=== PATIENT | female | born 1945 | race Caucasian/White ===

== ENCOUNTER 2019-07-25 10:07 | Emergency (ER) | payer MEDICARE, SELFPAY ==
--- NOTE | ~2019-07-25 | XR_ITS ---
EXAMINATION: XR chest 2V DATE: 07/25/2019 10:44 INDICATION: Cough TECHNIQUE: PA and lateral views of the chest are obtained. COMPARISON: 11/22/2016 FINDINGS: The lungs are free of acute opacities. There is no pleural effusion or pneumothorax. The ca rdiomediastinal silhouette is normal. There is severe thoracic spondylosis. There are changes of righ t mastectomy and right axillary lymph node dissection. IMPRESSION: 1. No acute cardiopulmonary abnormality. Reviewed, dictated and finalized at location A. DRIER
[2019-07-25 10:15] VITALS: BP 99/53; PULSE 70; RESP 16; TEMP 36.3; O2SAT 99
--- NOTE | 2019-07-25 10:27 | ED.URI ---
HPI - URI/Sore Throat General Chief Complaint: Upper Respiratory Infection Stated Complaint: cough/mucus/nausea Time Seen by Provider: 07/25/19 10:28 Source: patient and RN notes reviewed Mode of arrival: ambulatory Limitations: no limitations History of Present Illness HPI Narrative: 74-year-old female presents with concern for 5-day history of cough, chest congestion. Also reports nausea and one episode of diarrhea. Reports decreased appetite. Reports she had a fever of 102 at the beginning of the illness. Reports she got a flu vaccine this year. MD elicited complaint: cough Related Data Home Medications Medication Instructions Recorded Confirmed spironolactone 25 mg tablet 25 mg PO DAILY 07/04/19 07/07/19 ascorbic acid (vitamin C) 500 mg mg PO 07/07/19 07/07/19 capsule atorvastatin 10 mg tablet 10 mg PO DAILY 07/07/19 07/07/19 calcium carbonate 600 mg calcium 600 mg PO DAILY 07/07/19 07/07/19 (1,500 mg) tablet cholecalciferol (vitamin D3) 2,000 2,000 unit PO DAILY 07/07/19 07/07/19 unit tablet cyanocobalamin (vitamin B-12) 5,000 mcg PO DAILY 07/07/19 07/07/19 5,000 mcg capsule omega-3 fatty acids 1,000 mg 1,000 mg PO DAILY 07/07/19 07/07/19 capsule vitamin E (dl, acetate) 400 unit 400 unit PO DAILY 07/07/19 07/07/19 capsule Allergies Allergy/AdvReac Type Severity Reaction Status Date / Time Sxcbslx-[id number]-Hqi Reductase Allergy Intermediate MUSCLE PAIN Verified 07/07/19 08:40 Inhibitor adhesive tape Allergy Mild SORES Verified 07/07/19 08:40 Sulfa (Sulfonamide Allergy Mild RASH, Verified 07/07/19 08:40 Antibiotics) ITCHING Review of Systems Review of Systems: Narrative: CONSTITUTIONAL: Reports malaise, fever. EYES: Denies visual changes, redness, or discharge. ENT: Reports rhinorrhea, congestion. Denies sinus pain, otalgia and sore throat. CARDIOVASCULAR: Denies chest pain, palpitations, or edema. RESPIRATORY: Reports cough, chest congestion. Reports occasional dyspnea. GASTROINTESTINAL: Denies abdominal pain, vomiting,. Reports nausea and 1 episode of diarrhea SKIN: Denies rash or itching. MUSCULOSKELETAL: Denies myalgia. NEUROLOGIC: Denies headache. All systems reviewed & are unremarkable except as noted in HPI and below PMFSH Surgical History Surgical History H/O colonoscopy History of modified radical mastectomy History of total hip replacement Comments At time of signature, agree with nursing past medical, surgical, social and family history. There is no relevant family history pertinent to the presenting complaint Exam Narrative: Exam Narrative: GENERAL: Well-appearing, well-nourished, and in no acute distress. HEAD: Normocephalic, atraumatic. EYES: PERRLA, conjunctivae clear, and EOMI. ENT: Nares clear, turbinates erythematous, clear discharge. Mucous membranes moist. TM pearly maciel with dull light reflex bilaterally; no tragal tenderness. Oropharynx not erythematous without lesions. Tonsils not enlarged and without exudate, no drooling, no hoarseness, no trismus. NECK: Supple. No lymphadenopathy CHEST: Scattered crackles in the right lower lobe, otherwise clear to auscultation, breath sounds equal. No wheezing, rales, or stridor. No respiratory distress, speaks in full sentences. HEART: Regularly irregular rhythm, normal rate. Normal peripheral pulses. SKIN: Warm, dry, no rash. NEURO: Alert and oriented x3. PSYCH: Normal mood and affect Course Course Emergency Course: Patient is aware of diagnosis, understands and agrees to treatment plan. Anticipatory guidance given. Patient agrees to follow-up as directed and is aware of reasons to seek care at the emergency department. Portions of this record may have been created with voice recognition software Vital Signs Vital signs: Vital Signs Temperature 97.3 F L 07/25/19 10:15 Pulse Rate 70 07/25/19 10:15 Respiratory Rate 16 07/25/19 10:15 Blood Pressure 99/53
--- NOTE | 2019-07-25 11:00 | PC.NURSE ---
Pt has multiple and varied complaints but poor historian. Says only eaten 7 crackers and a can of soup.
== END 2019-07-25 11:11 | disposition home or self-care (01) ==
PROVIDERS: Emergency Provider Nurse Practitioner; PCP Internal Medicine
DX: R05 Cough (principal); R11.0 Nausea; R09.89 Other specified symptoms and signs involving the circulatory and respiratory systems; Z96.649 Presence of unspecified artificial hip joint; I10 Essential (primary) hypertension; M19.90 Unspecified osteoarthritis, unspecified site; Z95.810 Presence of automatic (implantable) cardiac defibrillator
CPT/HCPCS: 71046; 99213; G0463

== ENCOUNTER → 2019-07-30 09:48 | Outpatient (CLI) | payer MEDICARE, SELFPAY ==
--- NOTE | ~2019-07-30 | MR_ITS ---
EXAMINATION: MR shoulder RT wo con DATE: 07/30/2019 10:25 INDICATION: Right shoulder pain TECHNIQUE: Magnetic resonance imaging (MRI) of the right shoulder was performed without intravenous c ontrast. Sequences included axial PD-weighted FS FSE, coronal oblique PD-weighted FS FSE, coronal obl ique T2-weighted FS FSE, sagittal PD-weighted FS FSE, and sagittal T1-weighted SE. COMPARISON: Right shoulder radiographs dated 07/24/2019 FINDINGS: Coracoacromial arch: The acromion undersurface is curved in morphology (type II). The coracoacromial ligament is normal. M ild acromioclavicular osteoarthritis. 8 x 6 x 6 mm ganglion cyst extending cephalad from the acromioc lavicular joint space. There is a small ossicle along the dorsal capsule of the acromioclavicular linsey nt space which could represent a degenerative loose body,, heterotopic ossicle or tiny chronic nonuni apoorva avulsion fracture fragment related to chronic acromioclavicular joint separation. The joint space however remains within normal limits and the coracoclavicular ligaments appear normal. Rotator cuff: Moderate supraspinatus tendinopathy and mild tendinopathy of the anterior infraspinatus tendon. There is a partial-thickness bursal sided tear along the superior facet footplate of the superior facet fo otplate of the mid supraspinatus tendon which measures 6 mm AP by 13 mm medial collateral and involve s at least two thirds of the tendon thickness. The articular surface of the tendon appears to remain intact. Mild supraspinatus tendinopathy with mild intrasubstance longitudinal split tearing at the di stal aspect of the tendon without a measurable tear defect, appreciable lax torn tendon fibers or dis cernible tear margin. The teres minor tendon is normal. Normal rotator cuff muscle bulk and signal. Biceps tendon, glenoid labrum and glenohumeral cartilage: Focal thickening at the junction of the intra and extra articular portions of the long head biceps te ndon consistent with mild tendinopathy without a discrete tear. Posterior labral tear extending from the 11:00 position superiorly to the 7:30 position inferiorly. Partial-thickness cartilage loss and f issuring without degenerative subarticular changes along the posterior superior rim of the glenoid an d along the apex, posterior superior and superolateral aspects of the humeral head. Fluid: Small amount of fluid in the long head biceps tendon sheath which is disproportionate to the physiolo gic amount of fluid in the glenohumeral joint with mild bicipital tenosynovitis. No loose osteochondr al bodies. Small amount of fluid in the subacromial/subdeltoid bursa consistent with mild bursitis. Bones: Bone alignment is normal. There is degenerative cystic change along the lesser tuberosity and at the superior facet of the greater tuberosity likely related to rotator cuff disease. No acute fracture or pathologic marrow replacing process. IMPRESSION: 1. Small deep bursal sided tear at the distal supraspinatus tendon. 2. Moderate tendinopathy and mild longitudinal split tearing at the distal subscapularis tendon. 3. Mild glenohumeral osteoarthritis with tear at the posterior glenoid labrum. 4. Mild acromioclavicular osteoarthritis 5. Mild bicipital tenosynovitis with mild bicipital tendinopathy without discrete tear. Reviewed, dictated and finalized at location A. LATORY PROCESS MANAGER IMPRESSION: 1. Small deep bursal sided tear at the distal supraspinatus tendon. 2. Moderate tendinopathy and mild longitudinal split tearing at the distal subs capularis tendon. 3. Mild glenohumeral osteoarthritis with tear at the posterior glenoid labrum. 4. Mild acromioclavicular osteoarthritis 5. Mild bicipital tenosynovitis with mild bicipital tendinopathy without discre te tear.
== END ==
PROVIDERS: PCP Internal Medicine; Visit Provider Orthopaedic Surgery
DX: M19.011 Primary osteoarthritis, right shoulder (principal); M75.21 Bicipital tendinitis, right shoulder
CPT/HCPCS: 73221

== ENCOUNTER 2019-12-01 11:01 | Outpatient (CLI) | payer MEDICARE, SELFPAY ==
[2019-12-01 11:49] LABS: Blood Urea Nitrogen 22 mg/dL (7-17); Carbon Dioxide 28 mmol/L (22-30); Chloride 97 mmol/L (98-107); Estimated Glomerular Filt Rate 54; Glucose 79 mg/dL (65-105); Potassium 4.1 mmol/L (3.4-5.0); Sodium 134 mmol/L (137-145)
== END 2019-12-01 11:02 | disposition home or self-care (01) ==
LOC: ANHSURGERY 11:07
PROVIDERS: Anesthesiology; PCP Internal Medicine; Visit Provider Orthopaedic Surgery
DX: Z01.818 Encounter for other preprocedural examination (principal); Z79.899 Other long term (current) drug therapy
CPT/HCPCS: 36415; 80048

== ENCOUNTER 2019-12-02 00:05 | Outpatient (CLI) | payer MEDICARE, SELFPAY ==
[2019-12-02 18:58] LABS: SARS-CoV-2 RNA PCR Negative
== END 2019-12-02 00:06 | disposition home or self-care (01) ==
LOC: ANHCOVIDDT 00:05
PROVIDERS: PCP Internal Medicine; Visit Provider Orthopaedic Surgery
DX: Z01.812 Encounter for preprocedural laboratory examination (principal); Z20.828 Contact with and (suspected) exposure to other viral communicable diseases
CPT/HCPCS: 87635; C9803; U0003

== ENCOUNTER 2019-12-03 00:22 | Day surgery (SDC) | payer MEDICARE, SELFPAY ==
[2019-11-28 14:09] VITALS: BMI 36.1
--- NOTE | 2019-12-01 15:51 | PC.NURSE ---
PT NOTIFIED OF DATE AND TIME CHANGE
[2019-12-03] VITALS (8 sets, daily range): BP systolic 84–131; BP diastolic 52–75; PULSE 75–88; RESP 11–20; TEMP 36.3–36.4; O2SAT 92–99
--- NOTE | 2019-12-03 07:33 | WPDHPUPDATE1 ---
History and Physical Update Update Date/Time: 12/03/19 07:33 History and Physical has been reviewed, including an updated exam of the patient. There are NO changes in the patient's condition. Risks, benefits, and alternatives have been discussed and questions answered. Patient agrees to proceed with procedure.
--- NOTE | 2019-12-03 08:07 | PHAR ---
SULFA ALLERGY (RASH,ITCHING) - CELEBREX ORDERED. CALLED PRE-OP (CORNELIUS) AND ASKED THEN TO CHECK WITH DR CHADWICK PRIOR TO ADMINISTRATION.
[2019-12-03] MEDS: LACTATED RINGERS 1,000 ML 30 ML IV CONT ×2 (09:20→12:51)
--- NOTE | 2019-12-03 09:59 | WPDANESEPPF ---
Anes - Initial Pre Proc Eval Procedure: Operation Date: 12/03/19 10:30 Proposed Procedures p Right Rotator Cuff Repair, Distal Clavicle Excision - Silver España MD Date/Time: 12/03/19 09:59 Surgeon: Silver España MD Pre Op Diagnosis: Right Rotator Cuff Tear Patient Data Age: 74 Gender: F Height: 5 ft 4 in Weight: 99 kg Last Vital Signs Temp 36.4 C 12/03/19 08:50 Pulse 88 12/03/19 08:50 Resp 20 12/03/19 08:50 BP 131/75 12/03/19 08:50 Pulse Ox 99 12/03/19 08:50 Allergies Allergy/AdvReac Type Severity Reaction Status Date / Time Wbedqdy-Qvy-Rul Reductase Allergy Intermediate MUSCLE PAIN Verified 12/03/19 08:46 Inhibitor adhesive tape Allergy Mild SORES Verified 12/03/19 08:46 Sulfa (Sulfonamide Allergy Mild RASH, Verified 12/03/19 08:46 Antibiotics) ITCHING Home Medications Medication Instructions Recorded Confirmed Type ascorbic acid (vitamin C) 500 mg 500 mg PO DAILY 07/07/19 12/03/19 History capsule atorvastatin 10 mg tablet 10 mg PO HS 07/07/19 12/03/19 History calcium carbonate 600 mg calcium 600 mg PO DAILY 07/07/19 12/03/19 History (1,500 mg) tablet cholecalciferol (vitamin D3) 50 2,000 unit PO DAILY 07/07/19 12/03/19 History mcg (2,000 unit) tablet cyanocobalamin (vitamin B-12) 5,000 mcg PO DAILY 07/07/19 12/03/19 History 5,000 mcg capsule omega-3 fatty acids 1,000 mg 1,000 mg PO DAILY 07/07/19 12/03/19 History capsule vitamin E (dl, acetate) 400 unit 400 unit PO DAILY 07/07/19 12/03/19 History capsule potassium chloride 20 mEq 20 meq PO DAILY #90 tablet 07/23/19 12/03/19 Rx tablet,extended release spironolactone 25 mg tablet 25 mg PO DAILY #90 tablet 09/01/19 12/03/19 Rx amlodipine 5 mg HS 11/28/19 12/03/19 History valsartan-hydrochlorothiazide 1 tablet HS 11/28/19 12/03/19 History Patient hx anesthesia problems: none Family hx anesthesia problems: none PMFSH Past Medical History Medical History DJD of AC (acromioclavicular) joint Eczema Family history of cardiovascular disease Generalized osteoarthritis Hyperlipidemia Hypertension Malignant tumor of breast Right shoulder pain Rosacea Rotator cuff arthropathy Vitamin B12 deficiency Vitamin D deficiency, unspecified Surgical History Surgical History H/O colonoscopy History of modified radical mastectomy History of total hip replacement Hx of repair of left rotator cuff Anes - Eval Final PreProcedure Day of Procedure 12/03/19 09:59 Patient weight: obese Heart: regular rate and rhythm Lungs: clear to auscultation Airway: Mallampati scale class II Neurological: alert and oriented Last oral intake: >/= 8 hours ASA classification: III Emergent: no Anesthetic plan: proceed Anesthesia type and monitoring: general ETT and standard monitoring Informed Consent: The patient's anesthetic plan and its attendant risks and benefits were discussed with the patient/family/POA. Questions were solicited and answers provided to the satisfaction of the patient/family/POA.
--- NOTE | 2019-12-03 10:28 | WPDANESPNB ---
Anes - Peripheral Nerve Block Date/Time: 12/03/19 10:28 I have discussed with the patient/family/POA the placement of a peripheral nerve block for post-operative pain management, including associated risks, benefits, complications, and side effects. Alternative methods of post-operative analgesia were detailed. Questions were solicited and answers provided to the satisfaction of the patient/family/POA. Time-Out: A pre-procedural Time-Out was completed immediately before starting the procedure and confirmed: Patient Identification, Site, Procedure, Patient Position and the Availability of Requisite Equipment. Clinical Indications: Acute post-operative pain management requested by the operative surgeon. Nerve Block Insertion Note Anes-nerve block: interscalene right Patient position: supine Skin prep: chlorhexidine Needle: 22 gauge, stimulating, insulated echogenic needle. Needle length: 50 mm Technique: nerve stimulation lost at (mA) (0.3) and ultrasound Injectate: bupivacaine 0.5% with epi 5 mcg/ml (30cc) and dexamethasone (mg) (8) Observations: tolerated well Complications: none Procedure start time:: 5 Procedure end time:: 1024
[2019-12-03] MEDS: ceFAZolin 2 GM/D5W 50 ML 2 GM/50 ML BAG IVPB (10:41)
--- NOTE | 2019-12-03 12:46 | PM.OP ---
Procedure Note - Brief Procedure Note - Brief Date of procedure: 12/03/19 Pre-op diagnosis: Right Rotator Cuff Tear Post-op diagnosis: same Procedure performed: RIGHT ROTATOR CUFF REPAIR WITH DCE Anesthesia: GLMA Surgeon: Silver España MD Estimated blood loss (mL): 10 Complications: No immediate complications Condition: stable Disposition: PACU
--- NOTE | 2019-12-03 13:27 | SUR.PHASEI ---
1325- oxygen nasal cannula placed on pt for O2 sats of 90%. Encouraged to take deep breaths and cough.
--- NOTE | 2019-12-03 15:33 | OP_ITS ---
DATE OF PROCEDURE: 12/03/2019 PREOPERATIVE DIAGNOSES: Right rotator cuff tear and acromioclavicular joint degenerative joint disease. POSTOPERATIVE DIAGNOSES: Right rotator cuff tear and acromioclavicular joint degenerative joint disease. PROCEDURE: Repair of right rotator cuff tear and distal clavicle excision. ANESTHESIA: General. COMPLICATIONS: None. INDICATIONS: This is a 74-year-old female with chronic right shoulder pain and no improvement with nonoperative care. MRIs shown to have a rotator cuff tear. She was indicated for right rotator cuff repair. DESCRIPTION OF PROCEDURE: The patient was taken to the operating room in stable condition and placed in supine position. General anesthesia was induced and then she was placed in the beach chair position and the right upper extremity was prepped and draped sterilely from the fingers to the axillary and cervical region. Incision was made in between the anterolateral acromion and AC joint down to the subcutaneous tissues. AC joint was identified and a distal clavicle excision was performed. The wound was irrigated and capsule was approximated with #0 Vicryl sutures. Next, a mini open incision was made through the deltoid muscle exposing the subacromial space. There was joint fluid coming from the subacromial space. A limited subacromial decompression was performed and the subacromial space was exposed and there was a lot of bursitis that was reexcised, and then the tear was revealed, it was a large full-thickness tear. Greater tuberosity was debrided down to good bleeding bone, and then 4 Arthrex 5.5 suture anchors were placed in the greater tuberosity and the rotator cuff was repaired using a modified Toby-Jero type repair. The repair was excellent. The wound was irrigated thoroughly. The deltoid muscle was repaired with #2 FiberWire and with 0 Vicryl suture. Subcutaneous tissue was approximated with 2-0 Vicryl. The skin and subcuticular regions were approximated with a 3-0 Quill type of suture, and then Dermabond was placed. Steri-Strips and sterile dressing was applied. The patient was extubated and sent to recovery. Maxine I MT: [facility]
== END 2019-12-03 14:40 | disposition home or self-care (01) ==
PROVIDERS: PCP Internal Medicine; Visit Provider Orthopaedic Surgery
PROC: (CPT 23420; principal; 2019-12-03 10:30)
DX: M75.121 Complete rotator cuff tear or rupture of right shoulder, not specified as traumatic (principal); M19.011 Primary osteoarthritis, right shoulder; M75.51 Bursitis of right shoulder; G89.18 Other acute postprocedural pain; I10 Essential (primary) hypertension; E78.5 Hyperlipidemia, unspecified; Z85.3 Personal history of malignant neoplasm of breast; Z90.10 Acquired absence of unspecified breast and nipple; Z96.649 Presence of unspecified artificial hip joint
CPT/HCPCS: 23412; 23120; 64415; 36415; 80048; C1713; J0330; J0690; J1100; J2250; J2405; J2704; J3010; J7120

== ENCOUNTER 2019-12-25 07:09 | Outpatient (CLI) | payer MEDICARE, SELFPAY ==
--- NOTE | ~2019-12-25 | MM_ITS ---
EXAMINATION: MM screening zuleima LT w priyanka HISTORY: Screening mammogram TECHNIQUE: Craniocaudal and mediolateral oblique 3-D tomosynthesis images were obtained and synthetic 2-D images were generated. CAD analysis was submitted and interpreted. COMPARISON: Comparison to multiple prior studies sequentially, with oldest reviewed study dated 02/11 14. BREAST PARENCHYMAL COMPOSITION: There are scattered areas of fibroglandular density. FINDINGS: There is no evidence of suspicious mass, calcification, or architectural distortion to sugg est malignancy in the left breast. There has been no suspicious interval change. IMPRESSION: 1. No mammographic evidence of malignancy. 2. Recommend routine screening mammography in one year. BI-RADS Category 1: Negative Reviewed, dictated and finalized at location A.
== END 2019-12-25 07:10 | disposition home or self-care (01) ==
PROVIDERS: PCP Internal Medicine; Visit Provider Nurse Practitioner
DX: Z12.31 Encounter for screening mammogram for malignant neoplasm of breast (principal)
CPT/HCPCS: 77063; 77067

== ENCOUNTER 2019-12-25 08:03 | Outpatient (CLI) | payer MEDICARE, SELFPAY ==
[2019-12-25 08:34] LABS: Alanine Aminotransferase 47 U/L (4-35); Albumin Level 4.5 g/dL (3.5-5.1); Alkaline Phosphatase 98 U/L (38-126); Aspartate Amino Transferase 45 U/L (14-36); Bilirubin,Total 0.4 mg/dL (0.2-1.3); Blood Urea Nitrogen 20 mg/dL (7-17); Calcium 9.6 mg/dL (8.4-10.2); Carbon Dioxide 27 mmol/L (22-30); Chloride 98 mmol/L (98-107); Cholesterol 163 mg/dL (0-200); Estimated Glomerular Filt Rate > 60; Glucose 101 mg/dL (65-105); HDL Direct 43 mg/dL; Potassium 4.3 mmol/L (3.4-5.0); Sodium 135 mmol/L (137-145); Triglycerides 116 mg/dL (<150)
[2019-12-25 08:45] LABS: LDL Cholesterol Direct 87 mg/dL
[2019-12-25 09:47] LABS: Vitamin D 25 Hydroxy 70.5 ng/mL
[2019-12-25 09:49] LABS: Vitamin B12 > 1000.0 pg/mL (239-931)
== END 2019-12-25 08:04 | disposition home or self-care (01) ==
LOC: ANHLAB 08:06
PROVIDERS: PCP Internal Medicine; Visit Provider Nurse Practitioner
DX: E78.5 Hyperlipidemia, unspecified (principal); L65.9 Nonscarring hair loss, unspecified; E53.8 Deficiency of other specified B group vitamins; E55.9 Vitamin D deficiency, unspecified
CPT/HCPCS: 36415; 77063; 77067; 80053; 80061; 82306; 82607; 84443

== ENCOUNTER 2020-06-30 08:38 | Outpatient (CLI) | payer MEDICARE, SELFPAY ==
[2020-06-30 09:22] LABS: Alanine Aminotransferase 50 U/L (4-35); Albumin Level 4.5 g/dL (3.5-5.1); Alkaline Phosphatase 89 U/L (38-126); Anion Gap 9 mmol/L (8-16); Aspartate Amino Transferase 48 U/L (14-36); Bilirubin,Total 0.6 mg/dL (0.2-1.3); Blood Urea Nitrogen 24 mg/dL (7-17); Calcium 9.7 mg/dL (8.4-10.2); Carbon Dioxide 28 mmol/L (22-30); Chloride 100 mmol/L (98-107); Cholesterol 179 mg/dL (0-200); Estimated Glomerular Filt Rate 54; Glucose 104 mg/dL (65-105); HDL Direct 51 mg/dL; Potassium 4.4 mmol/L (3.4-5.0); Sodium 137 mmol/L (137-145); Triglycerides 158 mg/dL (<150)
[2020-06-30 09:36] LABS: LDL Cholesterol Direct 98 mg/dL
[2020-06-30 10:16] LABS: Vitamin B12 > 1000.0 pg/mL (239-931)
[2020-06-30 11:01] LABS: Vitamin D 25 Hydroxy 58.6 ng/mL
== END 2020-06-30 08:39 | disposition home or self-care (01) ==
PROVIDERS: PCP Internal Medicine; Visit Provider Internal Medicine
DX: E78.5 Hyperlipidemia, unspecified (principal); E55.9 Vitamin D deficiency, unspecified; I10 Essential (primary) hypertension; Z79.899 Other long term (current) drug therapy; E53.8 Deficiency of other specified B group vitamins
CPT/HCPCS: 36415; 80053; 80061; 82306; 82607

== ENCOUNTER 2020-08-24 08:26 | Outpatient (CLI) | payer MEDICARE, SELFPAY ==
[2020-08-24 09:03] LABS: Anion Gap 7 mmol/L (8-16); Blood Urea Nitrogen 22 mg/dL (7-17); Calcium 9.8 mg/dL (8.4-10.2); Carbon Dioxide 31 mmol/L (22-30); Chloride 101 mmol/L (98-107); Estimated Glomerular Filt Rate 48; Glucose 99 mg/dL (65-105); Potassium 4.1 mmol/L (3.4-5.0); Sodium 139 mmol/L (137-145)
== END 2020-08-24 08:27 | disposition home or self-care (01) ==
PROVIDERS: PCP Internal Medicine; Visit Provider Internal Medicine
DX: I10 Essential (primary) hypertension (principal)
CPT/HCPCS: 36415; 80048

== ENCOUNTER 2020-09-27 07:51 | Outpatient (CLI) | payer MEDICARE, SELFPAY ==
[2020-09-27 08:39] LABS: Potassium 4.1 mmol/L (3.4-5.0)
[2020-09-27 08:41] LABS: Anion Gap 7 mmol/L (8-16); Blood Urea Nitrogen 26 mg/dL (7-17); Calcium 9.2 mg/dL (8.4-10.2); Carbon Dioxide 31 mmol/L (22-30); Chloride 101 mmol/L (98-107); Estimated Glomerular Filt Rate 44; Glucose 103 mg/dL (65-105); Sodium 139 mmol/L (137-145)
== END 2020-09-27 07:52 | disposition home or self-care (01) ==
PROVIDERS: PCP Internal Medicine; Visit Provider Internal Medicine
DX: I10 Essential (primary) hypertension (principal)
CPT/HCPCS: 36415; 80048

== ENCOUNTER 2021-04-05 08:47 | Outpatient (CLI) | payer MEDICARE, SELFPAY ==
[2021-04-05 10:18] LABS: Alanine Aminotransferase 45 U/L (4-35); Albumin Level 4.8 g/dL (3.5-5.1); Alkaline Phosphatase 83 U/L (38-126); Anion Gap 11 mmol/L (8-16); Aspartate Amino Transferase 53 U/L (14-36); Bilirubin,Total 0.8 mg/dL (0.2-1.3); Blood Urea Nitrogen 25 mg/dL (7-17); Calcium 9.6 mg/dL (8.4-10.2); Carbon Dioxide 25 mmol/L (22-30); Chloride 102 mmol/L (98-107); Cholesterol 170 mg/dL (0-200); Estimated Glomerular Filt Rate 54; Glucose 100 mg/dL (65-110); HDL Direct 48 mg/dL; Potassium 4.6 mmol/L (3.4-5.0); Sodium 138 mmol/L (137-145); Triglycerides 142 mg/dL (<150)
[2021-04-05 10:29] LABS: LDL Cholesterol Direct 89 mg/dL
== END 2021-04-05 08:48 | disposition home or self-care (01) ==
PROVIDERS: PCP Internal Medicine; Visit Provider Nurse Practitioner
DX: E78.5 Hyperlipidemia, unspecified (principal); I10 Essential (primary) hypertension; Z79.899 Other long term (current) drug therapy; E55.9 Vitamin D deficiency, unspecified; E53.8 Deficiency of other specified B group vitamins
CPT/HCPCS: 36415; 80053; 80061; 82306; 82607

== ENCOUNTER 2021-10-24 10:36 | Outpatient (CLI) | payer MEDICARE, SELFPAY ==
[2021-10-24 11:20] LABS: Alanine Aminotransferase 41 U/L (4-35); Albumin Level 4.9 g/dL (3.5-5.1); Alkaline Phosphatase 101 U/L (38-126); Anion Gap 8 mmol/L (8-16); Aspartate Amino Transferase 50 U/L (14-36); Bilirubin,Total 0.6 mg/dL (0.2-1.3); Blood Urea Nitrogen 22 mg/dL (7-17); Calcium 9.6 mg/dL (8.4-10.2); Carbon Dioxide 27 mmol/L (22-30); Chloride 100 mmol/L (98-107); Cholesterol 195 mg/dL (0-200); Estimated Glomerular Filt Rate 54; Glucose 97 mg/dL (65-110); HDL Direct 61 mg/dL; Potassium 4.3 mmol/L (3.4-5.0); Sodium 135 mmol/L (137-145); Triglycerides 94 mg/dL (<150); Uric Acid 6.8 mg/dL (2.5-7.5)
[2021-10-24 11:31] LABS: LDL Cholesterol Direct 94 mg/dL
[2021-10-24 12:19] LABS: Vitamin D 25 Hydroxy 62.6 ng/mL
== END 2021-10-24 10:37 | disposition home or self-care (01) ==
PROVIDERS: PCP Internal Medicine; Visit Provider Internal Medicine
DX: N18.30 Chronic kidney disease, stage 3 unspecified (principal); Z79.899 Other long term (current) drug therapy; E55.9 Vitamin D deficiency, unspecified; E78.5 Hyperlipidemia, unspecified; E53.8 Deficiency of other specified B group vitamins; M10.9 Gout, unspecified
CPT/HCPCS: 36415; 80053; 80061; 82306; 82607; 84550

== ENCOUNTER 2022-01-26 07:56 | Outpatient (CLI) | payer MEDICARE, SELFPAY ==
--- NOTE | ~2022-01-26 | MM_ITS ---
EXAMINATION: MM screening zuleima LT w priyanka HISTORY: Screening TECHNIQUE: Craniocaudal and mediolateral oblique 3-D tomosynthesis images were obtained and synthetic 2-D images were generated. CAD analysis was submitted and interpreted. COMPARISON: Comparison to multiple prior studies sequentially, with oldest reviewed study dated 11/02. BREAST PARENCHYMAL COMPOSITION: Breast composed of scattered areas of fibroglandular density FINDINGS: There is no evidence of suspicious mass, calcification, or architectural distortion to sugg est malignancy in the left breast. There has been no suspicious interval change. IMPRESSION: 1. No mammographic evidence of malignancy. 2. Recommend routine screening mammography in one year. BI-RADS Category 1: Negative Reviewed, dictated and finalized at location A.
--- NOTE | ~2022-01-26 | DEXA_ITS ---
Bone Density Report Name: KELLY JOHNSON Age: 76 Sex: Female Ethnicity: White Date of : 1945 Indication: postmenopausal; screening for osteoporosis; height loss; cancer; Referring Provider: BILL MARMOLEJO Study: Bone densitometry was performed. Exam Date: January 26, 2022 Accession number: [id number] Bone Density: Region BMD T-score Z-score Classification AP Spine(L1, L2, L3) 1.405 3.5 6.0 Normal World Health Organization criteria for BMD impression classify patients as: Normal (T-score at or above -1.0), Osteopenia (T-score between -1.0 and -2.5), or Osteoporosis (T-score at or below -2.5). Previous Exams: Region Exam Age BMD T-score BMD Change BMD Change Date g/cm2 vs Baseline vs Previous AP Spine (L1-L3) 01/26/2022 76 1.405 3.5 0.108 (8.3%)* 0.108 (8.3%)* 07/24/2018 73 1.298 2.5 *Denotes significance at 95% confidence level, LSC for AP Spine = 0.022 g/cm2 Clinical Information Provided by Patient: Has used the following medications: Vitamin D, Calcium Has the following medical conditions: Cancer Patient maximum height was 69 Menopause Age: 57 No regular weight bearing exercise Does not regularly consume dairy products Onset of menses at age 13 Number of children 3 Impression: The patient has normal bone mass. No significant bone loss was observed. Discussion: LOW RISK OF FRACTURE; BONE DENSITY IS WELL ABOVE THE MINIMUM DESIRABLE LEVEL AND ABOVE AVERAGE FOR AGE AND SEX AT ALL SKELETAL SITES TESTED. This person's bone density is above expected limits for age and sex. This is rarely clinically significant, but should be pursued if there are significant musculoskeletal complaints. The patient should follow a healthful lifestyle (good nutrition with adequate calcium and vitamin D, and appropriate weight-bearing exercise). Follow-Up: Consider repeating this study in 5 years or sooner if there is some new clinical indication. Reported by: EFRAIN on 01/26/2022 8:35:00 AM. Reviewed, dictated and finalized at location APerla [place]
== END 2022-01-26 07:57 | disposition home or self-care (01) ==
PROVIDERS: PCP Internal Medicine; Visit Provider Nurse Practitioner
DX: Z12.31 Encounter for screening mammogram for malignant neoplasm of breast (principal); Z78.0 Asymptomatic menopausal state
CPT/HCPCS: 77063; 77067; 77080

== ENCOUNTER 2022-04-05 13:57 | Outpatient (CLI) | payer MEDICARE, SELFPAY ==
--- NOTE | ~2022-04-05 | US_ITS ---
EXAMINATION: US soft tissue head and neck DATE: 04/05/2022 14:32 INDICATION: Left sternoclavicular mass. TECHNIQUE: Multiple grayscale and Doppler ultrasound images of the left supraclavicular region were o btained. COMPARISON: None FINDINGS: There is no abnormal mass or lymphadenopathy in the patient's area of concern in left supra clavicular region. IMPRESSION: 1. No abnormal mass or lymphadenopathy in the patient's area of concern in left supraclavicular regio n. Reviewed, dictated and finalized at location A. IMPRESSION: 1. No abnormal mass or lymphadenopathy in the patient's area of concern in left supraclavicular region.
== END 2022-04-05 13:58 | disposition home or self-care (01) ==
PROVIDERS: PCP Internal Medicine; Visit Provider Nurse Practitioner
DX: R22.2 Localized swelling, mass and lump, trunk (principal)
CPT/HCPCS: 76536

== ENCOUNTER 2022-04-21 12:56 | Outpatient (CLI) | payer MEDICARE, SELFPAY ==
--- NOTE | 2022-04-21 13:17 | ECG_ITS ---
Measurements Intervals [place] Rate: 93 P: 57 NV: 183 QRS: 42 QRSD: 90 T: 57 QT: 378 QTc: 472 Interpretive Statements SINUS RHYTHM POSSIBLE LEFT ATRIAL ENLARGEMENT [-0.1mV P WAVE IN V1/V2] LOW QRS VOLTAGE IN PRECORDIAL LEADS [QRS DEFLECTION < 1.0 mV IN CHEST LEADS] BORDERLINE ECG NO PREVIOUS ECG AVAILABLE FOR COMPARISON Electronically Signed On 04-21-2022 17:01:27 CDT by Winston Resendiz M.D.
[2022-04-21 13:24] LABS: Basophils Absolute Auto 0.1 K/mm3 (0.0-0.1); Basophils Percent Auto 0.9 % (0.2-1.2); Eosinophils Absolute Auto 0.1 K/mm3 (0-0.3); Eosinophils Percent Auto 1.9 % (0-4.4); Hematocrit 34.8 % (37.0-47.0); Hemoglobin 11.3 g/dL (12.0-15.0); Immature Granulocyte Absolute 0.02 K/mm3 (0.00-0.031); Immature Granulocyte Percent A 0.3 % (0-0.5); Lymphocytes Absolute Auto 1.95 K/mm3 (0.9-3.2); Lymphocytes Percent Auto 30.2 % (18.3-44.2); Mean Corpuscular HGB Conc 32.5 g/dl (32-36); Mean Corpuscular Hemoglobin 34.1 pg (26-34); Mean Corpuscular Volume 105.1 fl (80-100); Mean Platelet Volume 9.1 fl (7.4-10.4); Monocytes Absolute Auto 0.6 K/mm3 (0.1-0.6); Monocytes Percent Auto 9.3 % (2.6-8.5); Neutrophils Absolute Auto 3.7 K/mm3 (1.3-6.7); Neutrophils Percent Auto 57.4 % (45.5-73.1); Platelet Count Result 323 k/mm3 (150-375); Red Blood Count 3.31 M/mm3 (4.2-5.4); Red Cell Distribution Width 13.2 % (11.5-14.5); White Blood Count 6.5 K/mm3 (4.5-10.0)
[2022-04-21 13:37] LABS: Anion Gap 11 mmol/L (8-16); Blood Urea Nitrogen 31 mg/dL (7-17); Calcium 9.4 mg/dL (8.4-10.2); Carbon Dioxide 24 mmol/L (22-30); Chloride 105 mmol/L (98-107); Estimated Glomerular Filt Rate 40; Glucose 88 mg/dL (65-110); Potassium 4.5 mmol/L (3.4-5.0); Sodium 140 mmol/L (137-145)
[2022-04-21 14:09] LABS: Appearance Urine Clear (Clear); Bilirubin Urine Negative (Negative); Blood Urine Trace-intact (Negative); Color Urine Yellow (Yellow); Glucose Urine UA Negative (Negative); Ketones Urine Negative (Negative); Leukocyte Esterase Ur Trace LEU/UL (Negative); Nitrate Urine Negative (Negative); Protein Urine Negative (Negative); Urobilinogen Urine 0.2 mg/dL (<2.0)
[2022-04-21 15:59] LABS: Bacteria Urine Trace /hpf; RBC Urine 0-2 /hpf (0-2); Squamous Epithelial Cell Urine Occasional /hpf (Few)
[2022-04-21 16:01] LABS: Add Urine Microscopic? YES
== END 2022-04-21 12:57 | disposition home or self-care (01) ==
PROVIDERS: PCP Internal Medicine; Visit Provider Orthopaedic Surgery
DX: M17.12 Unilateral primary osteoarthritis, left knee (principal); N18.30 Chronic kidney disease, stage 3 unspecified; R94.31 Abnormal electrocardiogram [ECG] [EKG]
CPT/HCPCS: 36415; 80048; 81001; 85025; 93005

== ENCOUNTER 2024-05-13 11:22 | Outpatient (CLI) | payer MEDICARE, SELFPAY ==
--- NOTE | 2024-05-13 11:30 | ECG_ITS ---
Test Date: 2024-05-13 11:55:27 Measurements Intervals Gore Rate: 89 P: 58 IA: 188 QRS: 39 QRSD: 92 T: 65 QT: 360 QTc: 440 Interpretive Statements SINUS RHYTHM WITH OCCASIONAL ATRIAL AND VENTRICULAR PREMATURE COMPLEXES LOW QRS VOLTAGE IN PRECORDIAL LEADS BORDERLINE ST-T WAVE ABNORMALITY- INF/HIGH LAT LEADS BASELINE ARTIFACT- I, II, III, AVR, AVL, AVF, V1 BORDERLINE ECG No previous ECG available for comparison Electronically Signed On 05-13-2024 12:47:17 [employer] by Esvin Nieves D.O.
[2024-05-13 12:39] LABS: Anion Gap 8 mmol/L (4-12); Blood Urea Nitrogen 28 mg/dL (7-17); Calcium 9.6 mg/dL (8.4-10.2); Carbon Dioxide 27 mmol/L (22-30); Chloride 105 mmol/L (98-107); Estimated Glomerular Filt Rate 60; Glucose 105 mg/dL (65-110); Potassium 4.5 mmol/L (3.4-5.0); Sodium 140 mmol/L (137-145)
== END 2024-05-13 11:23 | disposition home or self-care (01) ==
PROVIDERS: Anesthesiology; PCP Nurse Practitioner Family; Visit Provider Urology
DX: I10 Essential (primary) hypertension (principal); Z01.818 Encounter for other preprocedural examination; R94.31 Abnormal electrocardiogram [ECG] [EKG]
CPT/HCPCS: 36415; 80048; 93005

== ENCOUNTER 2024-05-15 01:10 | Day surgery (SDC) | payer MEDICARE, SELFPAY ==
--- NOTE | 2024-05-12 14:39 | PC.NURSE ---
Report to the Outpatient Waiting Room, entrance under the green pavilion located off [facility], at time _11 AM on date __05/15/24 . Planned Procedure Time: 1 :00 PM .? Time changes happen often and if your time is changed the preop area will call you the afternoon before. - You and your visitor will be asked to self-screen and do not enter if you have any COVID symptoms. Please call surgeon if you need to reschedule. - A mask is optional within the hospital at this time. Patients may have clear liquids (water, carbonated beverages, clear teas, apple juice) until 3 hours prior to surgery( 10 AM) with a maximum of 20 ounces. - No food from midnight until time of surgery and no smoking. This includes no chewing gum, candy or mints. - Infants may have breast milk until 4 hours before surgery, infant formula 6 hours prior to surgery. - Children will be allowed to drink immediately following surgery.? If applicable, please bring a bottle or sippy cup to assist with drinking. Juice, water, soda, and popsicles are readily available.? For infants on formula, please bring formula the day of surgery.? Pacifiers are allowed. Take only the following medications with a SIP of water on the morning of surgery: __CARVEDILOL, DO NOT STOP ANY OF YOUR OTHER PRESCRIPTION MEDICATIONS PRIOR TO SURGERY EXCEPT THE FOLLOWING Medications to discontinue per physician _PT STATES HOLD ELIQUIS AND ALL VITAMINS AND SUPPLEMENTS 3 DAYS PRE OP PER DR CRAMER .LAST DOSE 05/12/24 Please no make-up, nail andorran, hairspray, perfume, deodorant, or body powder the day of surgery.? No jewelry (including any body piercings) or valuables the day of surgery, leave them at home.? Please take a shower or bath the night before, or the morning of, surgery with an antibacterial soap.? Wear comfortable, loose fitting clothing.? Children are encouraged to wear pajamas. - Jewelry must be removed prior to entering the operating room.? Rings and piercings that are not removed may be cut off. - The hospital will not accept responsibility for valuables.? - Please leave all valuables, including medications, at home the day of surgery. If you are going home after surgery, a licensed courier delivery driver must drive you home.? - NO public transportation without another adult if you receive anesthesia. - We recommend that an adult stay with you for 24 hours following discharge. - We also recommend that you do not drive, make important decision, drink alcoholic beverages, or take any drugs that were not prescribed by your health care provider for at least 24 hours after your discharge time. For Pediatric surgeries, we recommend two adults accompany the child home. Follow any additional instructions given to you from your surgeon. Telephone instructions given to __PATIENT and asked if any additional questions and then verbalized understanding. Patient advised to call surgeon office or pre surgery nurse liaison [phone] if any additional questions.
[2024-05-12 14:51] VITALS: BMI 36.0
[2024-05-15] VITALS (12 sets, daily range): BP systolic 113–175; BP diastolic 67–93; PULSE 65–78; RESP 10–19; TEMP 36.3–36.8; O2SAT 96–100
--- NOTE | ~2024-05-15 | XR_ITS ---
INTRAOPERATIVE FLUOROSCOPY: CLINICAL HISTORY: 79 years old Female; BILATERAL RETROGRADE PROCEDURE COMMENTS: Limited intraoperative fluoroscopy of the lower abdomen and pelvis was performed. CUMULATIVE DOSE: 14 mGy FLUOROSCOPY TIME: 28 seconds FINDINGS/IMPRESSION: Please refer to operative note for further details. Reviewed, dictated and finalized at location A. [employer]
--- NOTE | 2024-05-15 06:37 | WPDHPUPDATE1 ---
History and Physical Update Update Date/Time: 05/15/24 06:37 History and Physical has been reviewed, including an updated exam of the patient. There are NO changes in the patient's condition. Risks, benefits, and alternatives have been discussed and questions answered. Patient agrees to proceed with procedure.
[2024-05-15] MEDS: LACTATED RINGERS 1,000 ML 30 ML IV CONT (11:30)
--- NOTE | 2024-05-15 12:18 | WPDANESEPPF ---
Anes - Initial Pre Proc Eval Procedure: Operation Date: 05/15/24 13:00 Proposed Procedures p Trans Urethral Resection Bladder Tumor - Zheng Salazar MD s Cytoscopy, Bilateral Retrograde Pyelograms with Gemcitabine Instillation - Zheng Salazar MD Date/Time: 05/15/24 12:18 Surgeon: Zheng Salazar MD Pre Op Diagnosis: Bladder Mass Patient Data Age: 79 Gender: F Height: 1.63 m Weight: 98 kg Last Vital Signs Temp 98.3 F 05/15/24 12:06 Pulse 78 05/15/24 12:06 Resp 18 05/15/24 12:06 BP 168/90 H 05/15/24 12:06 Pulse Ox 98 05/15/24 12:06 O2 Del Method Room Air 05/15/24 12:06 Allergies Allergy/AdvReac Type Severity Reaction Status Date / Time Qdmxaey-PWS-AkI Reductase Allergy Intermediate MUSCLE PAIN Verified 05/15/24 11:59 Inhibitor [Qbqtvhb-Tye-Imr Reductase Inhibitor] adhesive tape Allergy Mild SORES Verified 05/15/24 11:59 Sulfa (Sulfonamide Allergy Mild RASH, Verified 05/15/24 11:59 Antibiotics) ITCHING sulfanilamide Allergy Mild Rash Verified 05/15/24 11:59 Home Medications Medication Instructions Recorded Confirmed Type acetaminophen 325 mg capsule 650 mg PO Q6H PRN pain #90 caps 05/15/23 05/12/24 Rx (Tylenol) atorvastatin 80 mg PO HS #30 tabs 05/15/23 05/12/24 Rx spironolactone 25 mg tablet 12.5 mg PO DAILY #30 tabs 05/15/23 05/12/24 Rx allopurinol 100 mg tablet 100 mg PO BID 05/12/24 05/12/24 History apixaban 5 mg tablet (Eliquis) 5 mg PO BID 05/12/24 05/15/24 History carvedilol 3.125 mg PO BID 05/12/24 05/15/24 History cholecalciferol (vitamin D3) 250 250 mcg PO DAILY 05/12/24 05/15/24 History mcg (10,000 unit) capsule sacubitril 49 mg-valsartan 51 mg 1 tablet PO BID 05/12/24 05/12/24 History tablet (Entresto) Patient hx anesthesia problems: none Family hx anesthesia problems: none Results Review: All pre-operative results and documents have been reviewed as part of the pre-operative evaluation. [facility] Past Medical History Medical History DJD of AC (acromioclavicular) joint Eczema Family history of cardiovascular disease Generalized osteoarthritis Gout Hyperlipidemia Hypertension Malignant tumor of breast Right shoulder pain Rosacea Rotator cuff arthropathy Vitamin B12 deficiency Vitamin D deficiency, unspecified Surgical History Surgical History H/O colonoscopy History of modified radical mastectomy History of total hip replacement Hx of repair of left rotator cuff Family History Family History Sibling Patient's sister is in good health Acute myocardial infarction Breast cancer Lung cancer A-fib Father Patient's father is Family history of congestive heart failure Hypertension Mother Patient's mother is Daughter Congestive heart failure Breast cancer Social History Social History Smoking status: Never smoker Second hand tobacco smoke exposure: Yes Alcohol intake: former Drinks per week: 2 Substance use: never Substance use type: does not use Other substance usage details: has not had ETOH in past 6 months. takes prescription meds as prescribed. Living arrangements: with family Occupation/Education: retired Gender identity (if verbalized by the patient): Female Spiritual care concerns: No Anes - Eval Final PreProcedure Day of Procedure 05/15/24 12:18 Patient weight: obese Heart: regular rate and rhythm Lungs: clear to auscultation Airway: Mallampati scale Neurological: alert and oriented Last oral intake: >/= 8 hours ASA classification: IV Emergent: no Anesthetic plan: proceed Anesthesia type and monitoring: general LMA and standard monitoring Results Review: All pre-operative results and documents have been reviewed as part of the pre-operative evaluation. 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 Informed Consent: The patient's anesthetic plan and its attendant risks and benefits were discussed with the patient/family/POA. Questions were solicited and answers provided to the satisfaction of the patient/family/POA.
[2024-05-15] MEDS: ceFAZolin 2 GM/D5W 50 ML 2 GM/50 ML BAG IVPB (12:22)
[2024-05-15] MEDS: SODIUM CHLORIDE 0.9% IV 23.7 ML, GEMCITABINE HCL 1,000 MG BLADDER ×2 (13:19→13:21)
--- NOTE | 2024-05-15 13:25 | W.PM.PROC2 ---
Procedure Note - Detailed Date of Procedure 05/15/24 Pre-op Diagnosis Bladder Mass Post-op Diagnosis Same Procedure Performed 1. TURBT 2. Cystoscopy with bilateral retrograde pyelogram Surgeon Zheng Salazar MD Anesthesia General Description of Procedure Patient brought to the operative suite where she is prepped draped in routine sterile fashion while in dorsal lithotomy position after the uneventful induction of a general LMA anesthetic. Cystoscopy was 1st undertaken with a 19 F rigid cystoscope. Bladder neck and urethra endoscopically normal. 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 The remainder of the bladder mucosa is perfectly normal without hyperemia. She has a single orthotopic ureteral orifice bilaterally. An 8 F bulb-tipped catheter was used to obtain bilateral retrograde pyelograms which shows no points of obstruction filling defect or other identifiable pathology. I then replaced the cystoscope with a 24 F resectoscope. I resected this neoplasm in its entirety with an attempt made to intrude detrusor muscle for pathological evaluation of invasion. There was no compromise to the integrity of the bladder wall. Again we preserved the ureteral orifices throughout. All fragments were evacuated. The base and periphery were cauterized with a 2 mm rollerball. Patient tolerated the procedure well and was taken recovery room good condition. Drains Yes Packing No Pathology Yes Complications No immediate complications Condition Stable
--- NOTE | 2024-05-15 13:27 | W.PM.PROC2 ---
Procedure Note - Detailed Date of Procedure 05/15/24 Pre-op Diagnosis Bladder Mass Post-op Diagnosis Same Procedure Performed [facility] installation Surgeon Zheng Salazar MD Anesthesia General and None Description of Procedure With the patient in the supine position, a 16F Irwin catheter is placed using sterile technique. Using a protective facemask, gown and double layer of gloves Gemcitabine 2gm in 100cc saline is administered through the catheter/into the bladder. The catheter is then plugged. Patient was instructed to lie supine x20min, then to roll both the left and right x20 min. each. Total dwell time will be 60 min., after which the bladder will be drained and catheter removed. Drains No Pathology None sent Complications No immediate complications
--- NOTE | 2024-05-15 13:43 | SUR.PHASEI ---
1343 Patient changed from supine position to lying on right side.
--- NOTE | 2024-05-15 14:03 | SUR.PHASEI ---
1403 Patient changed from lying on right side, to now lying on left side.
--- NOTE | 2024-05-15 14:59 | SUR.PHASEII ---
Pt ambulated to bathroom and voided unmeasured amt of clear yellow urine without difficulty. Pt states scant amt of blood on toilet paper with wiping. Pt reporting no pain.
--- NOTE | 2024-05-15 15:06 | SUR.PHASEII ---
MD Ross contacted - pt BP elevated 175/92. Pt was 168/90 in pre op. Pt held Entresto this morning. Pt can discharge home and take home BP Medications per MD Ross. Pt education provided.
--- NOTE | 2024-05-15 15:27 | SUR.PHASEII ---
Pt ambulated to bathroom again and voided unmeasured amt of yellow/pinkish urine per pt. MD Parres at bedside with patient to discuss procedure. Pt should finish prescribed antibiotics at home per MD. Pt education provided.
== END 2024-05-15 15:37 | disposition home or self-care (01) ==
PROVIDERS: PCP Nurse Practitioner Family; Visit Provider Urology
PROC: 0TBB8ZZ Excision of Bladder, Via Natural or Artificial Opening Endoscopic (ICD-10-PCS; CPT 52235; principal; 2024-05-15 13:00)
PROC: (CPT 52352; 2024-05-15 13:00)
DX: C67.8 Malignant neoplasm of overlapping sites of bladder (principal); I10 Essential (primary) hypertension; E78.5 Hyperlipidemia, unspecified; E55.9 Vitamin D deficiency, unspecified; E53.8 Deficiency of other specified B group vitamins; E66.9 Obesity, unspecified; Z68.37 Body mass index [BMI] 37.0-37.9, adult; Z79.01 Long term (current) use of anticoagulants
CPT/HCPCS: 52235; 36415; 51720; 74420; 80048; 88305; 93005; C1758; C1769; J0690; J1100; J2003; J2405; J2704; J3010; J7120; J9201; Q9966

== ENCOUNTER 2024-12-23 09:22 | Outpatient (CLI) | payer MEDICARE, SELFPAY ==
--- OUTSIDE RECORDS SUMMARY | 2024-12-23 09:38 | XMS_ITS | Referral Summary ---
Author Organization [facility] Address [address] [id number] Care Team Providers Care Lamination Technician Name Role Phone Rusty Bond MD Unavailable Precious Braun NP Primary Care Provider [phone] Encounters Date Type Department Care Team Description 11/21/2024 Telephone [place] [employer] at [address] [place] [id number] Staci Clark NP 11/07/2024 Telephone [facility] Primary Care at [address] [phone] Precious Braun NP Medical Question/Miscellaneous from Last 3 Months Allergies Active Allergy Reactions Criticality Noted Date Comments Adhesive Rash Medium Hydromorphone Mental status changes Low 01/23/2023 Sulfa (Sulfonamide Antibiotics) Unknown 06/2017 Medications atorvastatin (LIPITOR) 80 mg tablet Take 1 tablet (80 mg total) by mouth nightly 90 tablet 3 4 03/27/20 25 Active spironolactone (ALDACTONE) 25 mg tablet Take 0.5 tablets (12.5 mg total) by mouth daily 45 tablet 3 4 03/27/20 25 Active carvediloL (COREG) 3.125 mg tablet Take 1 tablet (3.125 mg total) by mouth 2 (two) times a day with meals 180 tablet 3 4 03/27/20 25 Active Eliquis 5 mg tablet TAKE 1 TABLET BY MOUTH TWICE A DAY 180 tablet 3 5 Active cholecalciferol (VITAMIN D-3) 2000 unit tablet daily Active allopurinoL (ZYLOPRIM) 100 mg tablet Take 2 tablets (200 mg total) by mouth daily 180 tablet 3 5 Active meclizine (ANTIVERT) 12.5 mg tablet Take 1 tablet (12.5 mg total) by mouth daily as needed for dizziness 30 tablet 5 Active sacubitriL-vals cherrie (Entresto) 97-103 mg tablet TAKE 1 TABLET BY MOUTH TWICE A DAY 200 tablet 1 5 Active Active Problems Problem Noted Date Diagnosed Date History of bladder cancer 06/30/2024 Assessment & Plan (06/30/2024 9:28 AM PERSONAL INJURY SPECIALIST): Had surgery in April. She is having surveillance every 3 months with urology in [place] Chronic systolic congestive heart failure 2022 Assessment & Plan (06/30/2024 9:29 AM PERSONAL INJURY SPECIALIST): Last echo was 65%. Asymptomatic at this time. She continues to follow with Cardiology. Currently on Entresto, Coreg and 12.5 mg spironolactone. Assessment & Plan (12/31/2023 6:17 PM CDT): Chronic. Compensated. Continue spironolactone, Entresto, Coreg Assessment & Plan (05/23/2023 7:12 PM PERSONAL INJURY SPECIALIST): New diagnosis during hospitalization. LVEF 35-40%. Continue Entresto, spironolactone and carvedilol as tolerated. Due to associated hypotension she is on lower doses in his using midodrine to help support her blood pressure. She has a follow up with Cardiology scheduled her little over a month. Monitor weight and fluid intake. She currently appears compensated History of stroke with residual deficit 05/23/20 Assessment & Plan (06/30/2024 9:35 AM PERSONAL INJURY SPECIALIST): HPI: Right eye and right side cheeks and lips are slightly asymmetrical. Denies any difficulty swallowing or chewing, but feels her teeth do not align and are getting worse. It occurred after her CVA, but not directly after. Already uses mouth guard. Plan: she is going to discuss with dentist and I suggested speech therapy which she will think about. I will reach out to speech therapist and ask if they think they could help Assessment & Plan (12/31/2023 6:18 PM CDT): Chronic. Cause is still unclear. Still concern for possible cardioembolic episode from occult arrhythmia. However, patient is 1 month heart monitor failed to show any high-risk arrhythmia. Discussion of risks and benefits of chronic anticoagulation had. Given steroid concerns that patient could have had an occult arrhythmia as a cause we have elected to keep her on Eliquis for now. Assessment & Plan (05/23/2023 7:33 PM PERSONAL INJURY SPECIALIST): Patient had recent stroke to the PICA distribution. She has some slight right facial weakness and numbness as well as double vision and some degree of ataxia/balance issues and chronic dizziness as a residual. Continue risk factor modification with high-intensity statin, blood pressure control in NOAC given concerns that this was an embolic episode. Complete 30 day heart monitor as scheduled and see Cardiology for follow-up. Discussed signs and symptoms of acute stroke and when to seek urgent re-evaluate Gait difficulty 05/23/2023 Assessment & Plan (12/31/2023 6:18 PM CDT): Chronic since prior stroke. Only mild imbalance. Stable to slightly improving over the last year Assessment & Plan (05/23/2023 7:36 PM PERSONAL INJURY SPECIALIST): Due to dizziness and balance issues as a residual of the recent stroke. Continue home health for therapy. May benefit from going to the [facility] for intensive treatment [facility] current use of anticoagulant Assessment & Plan (12/31/2023 6:19 PM CDT): Chronic. Continuing on chronic anticoagulation given patient had a prior PICA stroke with concern for occult cardiac dysrhythmia as a potential cause despite 1 month heart monitor negative. We did have a discussion in the past about possible consideration for loop recorder to determine if there was an arrhythmia risk but patient elects to defer Assessment & Plan (05/23/2023 7:36 PM PERSONAL INJURY SPECIALIST): Patient has a history of prior provoked DVT. She had weaned off of anticoagulant prior to the shoulder replacement but it was restarted postoperatively for DVT prevention. Doses now been increased given recent stroke. Bleeding precautions recommended. We will defer to Cardiology whether they want her to stay on long- term but given concerns she is been having occult embolic strokes it likely will need to be a chronic medication. CKD (chronic kidney disease) stage 2, GFR 60-89 ml/min 04/17/2023 Assessment & Plan (06/30/2024 9:18 AM PERSONAL INJURY SPECIALIST): Due for lab work. Last GFR 63. Stable. Will continue to monitor Gouty tophi of hand 03/12/2023 Assessment & Plan (06/30/2024 9:26 AM PERSONAL INJURY SPECIALIST): History of. She continues on allopurinol 200 mg once daily. Will check uric acid with labs Status post reversal of ileostomy 02/10/2023 Assessment & Plan (12/31/2023 6:16 PM CDT): No signs of symptoms since prior ileostomy reversal. Patient does not currently have an ostomy in place. Assessment & Plan (02/14/2023 11:07 AM CDT): OR 02/09 ([facility]) loop ileostomy takedown, primary anastomosis -POD#0 Hypotensive. Started on Neymar gtt. Admit to OU on telemetry. EKG NSR and repeat ST, Trop neg. Epidural reduced 1mL/h. Multiple LR boluses with minimal response. 02/10 POD#1 hypotension improving, weaned off neymar gtt. Maps >70s. Endorsing flatus, start CLD, ADAT to Regular tonight. Removed rivera, voiding. Pain service removed epidural, starting PO pain control. EKG Mobitz II, Cards consulted, pending recs. 02/11 Cards consulted yesterday, noted PACs not Mobitz II, okay to resume home meds as appropriate and follow up with PCP. AFVSS, tolerating PO diet with multiple loose bowel movements as expected. Okay to TTF in anticipation for dispo home with home health pending PT eval 02/12 Doing well in AM, tolerating diet, pain controlled. Afternoon, patient with multiple dark stools and nausea/vomiting. NPO, start mIVF, KUB, repeat labs 02/13 POD 4, pain well controlled. Nausea resolved, KUB normal, WBC lateral, 9.2. Post-op enterg stopped. CLD today, PRN zofran, cont +BM, ADAT 02/14 POD5, tolerating regular diet, +BM, no nausea, no zofran x 24hr. Plan for DC home today. to be at bedside for teaching with patient for strip packing to prior ileostomy site. F/u in [facility] scheduled for post-op check Cultures - none Antibiotics Ertapenem 02/09 - pre-op ppx Pathology - Skin and small intestine, ileostomy stoma, loop ileostomy reversal: -Skin and the adjoining segment of small intestine with ostomy site associated changes. Calculus of gallbladder without biliary obstruct ion 12/28/2022 Assessment & Plan (12/31/2023 6:20 PM CDT): Patient has a history of small gallstones versus sludge. Currently asymptomatic. No signs of cholecystitis. Has not had any recent signs to suggest bile duct obstruction or hepatitis. Her prior facial and her LFTs was felt to be related to acute illness and has since resolved. She did have GI evaluation for this and they felt it was also likely related to acute illness and has since resolved. Further testing can be deferred Assessment & Plan (03/12/2023 5:58 PM CDT): Asymptomatic Assessment & Plan (12/28/2022 1:53 PM CDT): Patient had the findings of sludge in the gallbladder which was incidental finding during imaging over the last couple months. No sign of common bile duct obstruction or cholecystitis. I do not think this need to be addressed at this point. If she has symptoms of cholecystitis acute or chronic then she will need cholecystectomy. History of DVT (deep vein thrombosis) 10/02/2022 Assessment & Plan (05/23/2023 7:35 PM PERSONAL INJURY SPECIALIST): Previous DVT had been provoked by surgery. She had been on the low dose of 2.5 mg twice daily after recent surgery when the stroke occurred. She is now on 5 mg twice daily for suspicion of occult embolic causes of the stroke. There is suspicion she may have occult AFib. She does not have any signs of any mbyas-fh-crav cardiac shunt that could have allowed a lower extremity DVT cause the current strokes. Assessment & Plan (03/12/2023 5:59 PM CDT): Blood clot has resolved and no longer on anticoagulant. May be at slightly higher risk for recurrent clot with upcoming joint replacement surgery. However, this is not a contraindication to the surgery Assessment & Plan (02/14/2023 10:58 AM CDT): Home med: Eliquis 5mg BID, ASA 81mg BID Perio VTE re: perforated bowel surgery 08/2022. Last VTE 09/2022 resume ASA, hold eliquis until POD2 02/11 Plan to resume home Eliquis tomorrow 02/12 Hold home Eliquis in setting of increased dark stools 02/13 Cont to hold Eliquis, plan to restart at DC 02/14 Hgb stable 9.0, restart DOAC upon discharge At risk for obstructive sleep apnea 09/13/2022 Assessment & Plan (09/20/2022 12:42 PM CDT): Current diet: regular + supplements Weekly nutrition labs 09/06 Albumin 2.5, Prealbumin 6 09/12 albumin 2.7, prealbumin 11 09/20 Albumin 2.6, prealbumin 9 History of right breast cancer 05/10/2022 Assessment & Plan (02/10/2023 2:37 PM CDT): S/p right lumpectomy 2000. Cancer in remission and s/p chemo. RUE restrictions Gouty arthropathy 05/10/2022 Assessment & Plan (12/31/2023 6:15 PM CDT): Chronic. Denies any gout flares. Continue allopurinol for suppression. Issue stable Assessment & Plan (05/23/2023 7:13 PM PERSONAL INJURY SPECIALIST): Chronic. She has a history of tophi with in her hands. There is some deformity do the knuckles on her right hand. She is on allopurinol to try to decrease recurrent flares Assessment & Plan (03/12/2023 5:57 PM CDT): Recent flare is resolving. Has signs of some gouty tophi in her right hand. Plan updated uric acid level in 1-2 weeks to see if needs allopurinol dose increase. The restarting of the furosemide could have been a precipitating factor as it did correspond to the time of her flare Assessment & Plan (02/13/2023 9:55 AM CDT): home med: allopurinol 02/09 restarted Assessment & Plan (09/20/2022 12:37 PM CDT): Home regimen: allopurinol (held) 09/16 restart allopurinol 09/17 complaining of severe pain in both feet R>L this morning; similar to previous acute gout episode - ibuprofen TID 09/20 continues to have pain and swelling Left greater than right, repeat dopplers and xrays ordered Venous insufficiency of both lower extremities 1 07/10/2021 Assessment & Plan (12/31/2023 6:19 PM CDT): Chronic. Controlled. Left leg does swell a little bit more than right. There could be a component of post thrombotic swelling that occurs. Monitor. Assessment & Plan (03/12/2023 5:58 PM CDT): Chronic. Swelling significantly improve. Will change her furosemide back to 3 days a week. Monitor Mixed hyperlipidemia 05/10/2022 Assessment & Plan (06/30/2024 9:26 AM PERSONAL INJURY SPECIALIST): Lipid abnormalities are stable, reviewed previous lipid levels in epic. Continue statin therapy. Lipitor (atorvastatin) Order for lipid panel was given today to be obtained. Pt voiced understanding of lab drawn and continuation of current medication regimen. Assessment & Plan (12/31/2023 6:15 PM CDT): Chronic. Tolerates atorvastatin 80 mg daily. Continue for risk factor modification. Assessment & Plan (05/23/2023 7:35 PM PERSONAL INJURY SPECIALIST): Chronic. Now on high-intensity statin given recent stroke. Continue medication Assessment & Plan (03/12/2023 5:59 PM CDT): Chronic. On atorvastatin. Continue Assessment & Plan (02/13/2023 9:55 AM CDT): Home med: atorvastatin 10mg qhs 02/12 restarted Assessment & Plan (09/15/2022 11:11 AM CDT): Home regimen: lipitor - resume Hypertension, essential 05/10/2022 Overview (11/09/2022): BP stable off medication since abdominal surgery. Had some weight loss with abdominal issues which may have helped Assessment & Plan (06/30/2024 9:41 AM PERSONAL INJURY SPECIALIST): Worsening. Reached out to cardiology they recommended she increase the entresto to 97/103. New dose called in. I asked patient to check blood pressure at home and send us readings over the next 2 weeks and let us know how she is doing. Assessment & Plan (03/12/2023 5:57 PM CDT): Chronic. Blood pressure was trending up since reversal of ileostomy. Restarted on losartan last visit. Blood pressure controlled on medication in office today. Continue. She will due for updated labs in 1-2 weeks Assessment & Plan (02/13/2023 9:56 AM CDT): Off meds per PCP 02/13 HDS Assessment & Plan (09/22/2022 1:16 PM CDT): Home meds: valsartan, amlodipine, lasix, spironolactone, ASA 09/10 aldactone resumed, tolerating norvasc 09/11 edema improved, HDS, home valsartan not on formulary 09/12-09/14 HDS, lasix resumed 09/15 HDS, continue current regimen Restarted all home meds valsartan, amlodipine, lasix, spironolactone, Class 2 severe obesity due t o excess calories with serious comorbidity and body mass index (BMI) of 37.0 to 37.9 in adult 05/10/2022 Assessment & Plan (06/30/2024 9:26 AM PERSONAL INJURY SPECIALIST): BMI Follow-up includes: education provided. Assessment & Plan (12/31/2023 6:21 PM CDT): Chronic. Needs improvement. encouraged healthy diet, exercise, weight loss. Encouraged patient to try to avoid further weight gain. Monitor couragedHealthy diet Resolved Problems Problem Noted Date Diagnosed Date Resolved Date Gross hematuria 03/27/2024 06/30/2024 Assessment & Plan (03/27/2024 12:46 PM CDT): Will repeat urine culture for resolution of UTI Positive colorectal cancer s creening using Cologuard test 01/03/2024 06/30/2024 Diplopia 05/23/2023 12/31/2023 Assessment & Plan (05/23/2023 7:34 PM PERSONAL INJURY SPECIALIST): Acute onset after stroke. Continue current treatment. Keep appointment with ophthalmology. If not improving may benefit from prism lenses Acute CVA (cerebrovascular accident) 04/25/2023 05/23/2023 Dizziness 04/22/2023 12/31/2023 Assessment & Plan (05/23/2023 7:35 PM PERSONAL INJURY SPECIALIST): Acute onset due to recent posterior circulation stroke. Monitor Pleural effusion 04/22/2023 05/23/2023 Acute urinary retention 04/22/202304/26 Status post surgery 04/19/2023 12/31/19 24 Arrhythmia 02/10/2023 03/12/2023 Assessment & Plan (02/13/2023 9:57 AM CDT): EF 60-65% per 10/2022 TTE. Noted to be in irregular rhythm during study 02/09 EKG Sinus tachycardia and PVCs 02/10 EKG irregular rhythm and Mobitz II. Asymptomatic. Cards consulted pending recs 02/11 Cardiology noted PACs, no concerns, s/o and f/u with PCP 02/13 HDS - CONSIDER RESOLVED Presence of ileostomy 02/09/20232022 Hypotension, unspecified hypotension type 10/31/2022 01/09/2023 Elevated liver enzymes 10/31/202203/12 Assessment & Plan (12/28/2022 1:52 PM CDT): I suspect this is secondary to underlying fatty liver disease and likely steatohepatitis. Symptoms get worse after the since her severe illness and the emergency surgery with laparotomy and colon resection and ileostomy in August. I suspect liver enzymes will decline to a baseline level. Patient was advised to stop alcohol use completely. Also we will repeat liver enzymes and the get fibro test today look for early fibrotic changes. I do not think the sludge in the gallbladder has anything to do with her symptoms and there is no sign of common bile duct obstruction at this time. Follow-up in the office in 6 weeks to repeat labs Acute kidney injury 10/07/2022 11/10/19 23 Hypotension 10/07/2022 03/12/2023 Assessment & Plan (02/10/2023 2:33 PM CDT): See s/p reversal of ileostomy for events and management UTI (urinary tract infection) 10/07/2022 11/09/2022 Open abdominal wall wound 10/03/2022 Moderate protein-calorie malnutrition 10/03/2022 07/06/2023 Lower leg DVT (deep venous t hromboembolism), acute, bilateral 09/21/2022 11/09/2022 Assessment & Plan (09/21/2022 9:17 AM CDT): 09/20 complained bilateral lower extremity pain and swelling, Dopplers positive Left Gastroc and Right Soleal 09/[address] Fowler regarding the DVT in the setting of post op from left knee replacement, no need to treat Will discharge on Lovenox DVT prophylaxis repeat Dopplers in 2 weeks Swelling of left foot 09/20/20222022 Assessment & Plan (09/21/2022 12:37 PM CDT): 09/20 continues to have pain and swelling Left greater than right, repeat dopplers and xrays ordered, continue home Allopurinol for Gout 09/21 continue to complain of pain at the dorsal aspect of the bilateral feet, provided Voltaren cream SEE DVT Hypokalemia 09/14/2022 11/09/2022 Assessment & Plan (09/20/2022 12:37 PM CDT): 09/14 K 3.3 suspect d/t high stoma output, repleted 09/15 K 3.6, KPhos repleted RESOLVED Discharge planning issues 09/13/2022 Assessment & Plan (02/14/2023 10:58 AM CDT): 02/13 POD4, clears, ADAT - plan for home with family 02/14 Tolerating regular diet, plan for DC today home with family - at bedside for wound packing Assessment & Plan (09/22/2022 1:02 PM CDT): 09/12 [facility] pursued ins authorization 09/13 Ins denies IPR - peer to peer/appeal performed and lost. resident services director of ins states she can have PT&OT at SNF and that she does not meet medical complexity requirements for daily evaluation by seaming machine operator --- discussed with both patient and --- SW to provide list of SNF options, CM to provide home healthcare information 09/14 [facility] appealing the rehab denial despite the [facility] losing the peer to peer, [facility] to refer to SNFs of patient's choosing for backup placement 09/20 meet with SW daily, facilities continue to deny, Appealing pending 09/22 Appeal approved, patient discharged to [facility] Edema of left upper extremity 09/11/2022 11/09/2022 Assessment & Plan (09/12/2022 1:38 PM CDT): 09/10 LUE edema noted on rounds, duplex ordered 09/11 edema persistent, pending duplex 09/12 edema nearly resolved, duplex: NO DVT RESOLVED Acute post-operative pain 09/05/2022 Assessment & Plan (09/15/2022 3:01 PM CDT): 09/05 POD0, patient with increased pain post-operatively in PACU; dPCA ordered while NPO 09/07: pain well controlled with EXPORT SPECIALIST 09/08: POD 4. NGT replaced. Pain controlled on EXPORT SPECIALIST. 09/10: POD 6. NPO/NGT. EXPORT SPECIALIST. Pain controlled. 09/11 POD7, pain controlled, ARBF prior to advancing to oral regimen 09/12 POD8 pain controlled, tolerating oral analgesia - ultram per patient's request 09/13 POD9 ultram not sufficient, transition to oxycodone per patient request 09/14-09/15 pain controlled Bowel perforation 09/04/2022 11/09/2022 Assessment & Plan (09/22/2022 1:40 PM CDT): Presents with 1 day of now diffuse abdominal pain. WBC 16.3. CT A/P shows large amount of pneumoperitoneum concerning for perforated viscus, with dilated small bowel concerning for pSBO, as well as diverticulosis in sigmoid/descending colon, small amount of fluid in peritoneal cavity, possible concern for perforated diverticulitis. Given recent stress of knee replacement and frequent NSAID use, as well as distribution of pneumoperitoneum on non-contrasted CT scan, there is some concern for possible perforated ulcer rather than diverticulitis. 09/05 OR ([facility]) ex-lap, sigmoidectomy, primary anastomosis, diverting loop ileostomy, MELISSA x1 NPO, NGT to LIMURRAY, dPCA for pain control, rivera, MELISSA drain x1, serous output 09/06 NGT with 20 mL /24 hr, MELISSA 60 mL, ileostomy with bowel sweat present, NPO/IVF, surgical pathology still pending, wound ostomy for teaching 09/07 NGT 350 ml/24hr, MELISSA 60 mL, ileostomy with bowel sweat present, NGT clamp trial, surgical pathology still pending, noted WBC increased to 14, from 11, will obtain dopplers. Of note the rivera catheter is removed 09/08: Advanced to CLD yesterday w/ nausea/vomiting overnight. NGT replaced today with initial output of 400ml. Nausea improved with NGT placement. WBC 16.1 from 14.6 and 11. Afebrile. MELISSA drain OP LUQ: 35ml, SS. Ileostomy OP: bilious output. 09/09: NGT OP 850ml. Ileostomy OP 675; bilious OP without gas in bag. HDS. Afebrile. -n/v. WBC 13 from 16. Afebrile. HDS. Plan: continue NGT/NPO and ertapenem. 09/10: POD 6. NGT OP 1550ml; bilious. NGT appears post pyloric on KUB; pulling NGT back and repeat KUB. MELISSA drain OP LUQ 75ml; SS. Ileostomy OP 625ml bilious liquid, no gas. +BM from rectum/-flatus. WBC 12.8 from 13. Afebrile. HDS. Discontinue ertapenem. Wound vac supplies ordered for mindline abdominal incision. Anasarca; resumed home spironolactone and decreased IVF. LUE swelling; BUE duplex ultrasound ordered. 09/11 POD7 AFVSS off of abx, NGT 825cc/24h and post-pyloric on KUB, ongoing stoma output ~400cc/24h, NGT clamp trial today 09/12 POD8 AFVSS, no nausea without NGT, advance to CLD and ADAT, ongoing stoma output, midline c/d with granulation throughout, MELISSA minimal SS output 09/13 POD9 AFVSS, tolerating regular diet, ongoing stoma output, midline c/d- pic uploaded, remove MELISSA, LR bolus for 1L output witnessed by WORN 09/14 POD10 AFVSS, ongoing diet tolerance, large volume stoma output 2350cc/24h, repeat LR bolus, start low dose loperamide 09/15 POD11 AFVSS, ostomy 1500cc/24h, repeat LR bolus, increase loperamide QID, goal 500-1000cc/24h, CTM and adjust prn 09/16 POD 12 AFHDS, ostomy output 1L (1.5L), add metamucil 09/17 POD 13 ostomy 1.4L (1L); metamucil prn and increased loperamide dose 4mg QID; get EKG for QTc 09/18 colostomy with 1.4L out, added lomotil 09/19 Ileostomy with 525 mL output with the current regimen, Lomotil 1 tab QID, Loperamide 4 mg QID, Metamucil 1 pkt BID 09/20 Ileostomy output 825 mL, continue current regimen 09/21Ileosotmy output decreased to 375 mL, decreased Lomotil frequency from QID to BID 09/22 Ileostomy output the day of discharge 700 mL/ 24 hrs, continue BID Lomotil and Loperamide QID Discharge Plan: wet to dry dressing change BID to open midline incision, ostomy teaching performed, continue antimotilities Of note she is a candidate for a takedown she will likely discuss this at her follow up appointment for scheduling the takedown Cultures: 09/04 OR abdominal fluid: NFGTD / mixed anaerobic microorganisms, Bacteroides ovatus Antibiotics: Ancef (09/04) Flagyl (09/04) Zosyn (09/03-09/04) Ertapenem (09/05 -09/09) post op 4 days Pathology -- Large bowel, sigmoid, resection - Perforated diverticulitis with purulent serositis and mesenteritis Peritonitis 09/03/2022 11/09/2022 Overview (09/04/2022): Added automatically from request for surgery [id number] Osteoarthritis of left glenohumeral joint 08/29/2022 06/30/2024 Overview (08/29/2022): Added automatically from request for surgery [id number] Assessment & Plan (03/12/2023 6:00 PM CDT): Patient's health status appears to be relatively stabilized. She no longer is under treatment for DVT. Her ileostomy has been reversed. As long as she is doing well and no concerns on upcoming labs I do not see any absolute contraindication to proceeding with surgery. She will want to make sure to stay very active postoperatively to decrease risk of blood clots. Primary osteoarthritis of left knee 08/03/2022 06/30/2024 Overview (08/03/2022): Added automatically from request for surgery [id number] Assessment & Plan (09/22/2022 12:58 PM CDT): H/o recent L knee replacement (JOSE Janeth - 08/30/22) [facility] consults; no need for formal consult, no need for MRSA coverage at this time WBAT, PT/OT ordered Silver island dressing to Left knee- keep dressing x 3 weeks, removal date 09/20 09/08: [facility] c/s regarding recent left TKA and CPM for period of immobilization. Ortho recommended against CPM. Follow up appointment with Dr. Fowler on 10/04/2022 Stage 3b chronic kidney disease (CKD) 05/10/2022 11/09/2022 Assessment & Plan (09/20/2022 12:36 PM CDT): Follows with Dr. Duggan, last seen 04/2022 O/p ARB dose reduced from 320 to 160 Valsartan 09/11-09/15 sCr NL, historical documentation with sCr NL, strict I&O Returned to [facility] Osteoarthritis of left hip 05/30/2017 1 07/10/2021 Encounter for preventive health examination 05/11/2017 05/10/2022 Eczema 09/06/2016 05/10/2022 Lentigo 09/06/2016 05/10/2022 Benign neoplasm of soft tissues 09/06/2016 05/10/2022 S/P exploratory laparotomy 0 12/31/[address] Overview (03/12/2023): Status post reversal Dehydration 11/09/2022 DVT (deep venous thrombosis) 11/09/2022 Elevated LFTs 11/09/2022 Orthostatic dizziness 2022 Immunizations Immunization Administration Dates Next Due COVID-19 mRNA (Unomy) 0.3 m L (30 mcg) vaccine (12 years and up) 03/17/2023 Influenza, Quad, Adjuvantate d, Intramuscular 03/17/2023,03/26/2020 Influenza, Quadrivalent, Hig h Dose, Preservative Free, Intrr 04/24/2022,03/21/2021 Influenza, Trivalent, Adjuva nted, Intramuscular 03/01/2019 Influenza, Trivalent, High D ose, Split, Preservative Free, Intramuscular 03/07/2024,03/01/2019,03/01/2018,03/15,03/23/2013 Influenza, Trivalent, IM (MDV) 03/01/2018 Pneumococcal Conjugate PCV 13 07/08/2018 Pneumococcal Polysaccharide PPV23 04/17/2013 RSV Vaccine, Pref, Recombina nt, Subunit, Adjuvanted, PF, IM (Arexvy) 07/10/2023 Tdap 03/16/2018 ZOSTER LIVE 10/09/2006 ZOSTER Recombinant 03/07/2024,07/10/2023 Social History Tobacco Use Types Packs/Day Years Used Date Smoking Tobacco: Never Passive Smoke Exposure: Never Smokeless Tobacco: Never Tobacco Cessation:Counseling Given: Not Answered Comments:2 puffs at 13 years old Alcohol Use Standard Drinks/Week Comments Yes 0 (1 standard drink = 0.6 oz pur e alcohol) OASIS D0700: Social Isolation Answer Da te Recorded Frequency of experiencing loneliness or isolatio n Never 12/28/2022 OASIS A1250: Transportation Answer Date Recorded Lack of Transportation (Medical) No 12/28/2022 Lack of Transportation (Non-Medical) No 12/28/2022 Patient Unable or Declines to Respond No 12/28/2022 OASIS B1300: Health Literacy Answer Jhonatan e Recorded Frequency of needing help to read materials from doctor or pharmacy Never 12/28/2022 [facility] Utilities Answer Date Recorded In the past 12 months has th e [employer], gas, oil, or water [employer] threatened to shut off services in your home? No 04/23/2023 Social Connection and Isolat ion Panel [NHANES] Answer Date Recorded In a typical week, how many times do you talk on the phone with family, friends, or neighbors? More than three times a week 04/23/2023 How often do you get togethe r with friends or relatives? More than three times a week 04/23/2023 How often do you attend chur ch or jew services? More than 4 times per year 04/23/2023 Do you belong to any clubs o r organizations such as pentecostal groups, unions, fraternal or athletic groups, or school groups? Yes 04/23/2023 How often do you attend meet ings of the clubs or organizations you belong to? More than 4 times per year 04/23/2023 Are you , , di vorced, , never , or living with a partner? 04/23/2023 AUDIT-C Answer Date Recorded Q1: How often do you have a drink containing alcohol? Never 09/11/2024 Q2: How many drinks containi ng alcohol do you have on a typical day when you are drinking? Patient does not drink Q3: How often do you have si x or more drinks on one occasion? Never 09/11/2024 Overall Financial Resource Strain (CARDIA) Answe r Date Recorded How hard is it for you to pa y for the very basics like food, housing, medical care, and heating? Not hard at all 04/23/2023 PHQ-2 Answer Date Recorded PHQ-2 Total Score (If total score is 3 or more points, staff should administer the PHQ-9) 0 03/27/2024 Hunger Vital Sign Answer Date Recorded Within the past 12 months, y ou worried that your food would run out before you got the money to buy more. Never true 04/23/20 23 Within the past 12 months, t he food you bought just didn't last and you didn't have money to get more. Never true 04/23/2023 PRAPARE - Transportation Answer Date Re corded In the past 12 months, has l ack of transportation kept you from medical appointments or from getting medications? No 03/27 In the past 12 months, has l ack of transportation kept you from meetings, work, or from getting things needed for daily living? No 04/23/2023 Housing Stability Vital Sign Answer Jhonatan e Recorded In the last 12 months, was t here a time when you were not able to pay the mortgage or rent on time? No 04/23/2023 In the last 12 months, how many places have you lived? 1 04/23/2023 In the last 12 months, was t here a time when you did not have a steady place to sleep or slept in a fdc (including now)? No 04/23/2023 Personal Safety Answer Date Recorded Have you ever been in or are you currently in a harmful physical or emotional relationship or is someone making you feel afraid or unsafe? Denies 01/22/2024 Education Answer Date Recorded What is the highest level of school you have completed or the highest degree you have received? 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 Gender Identity Not on file Sexual Orientation Not on file Occupation Industry Job Start Date Job End Date retired Not on file Not on file Not on file Last Filed Vital Signs Vital Sign Reading Time Taken Comments Blood Pressure 160/84 09/11/2024 2:16 PM CDT Pulse 80 09/11/2024 2:05 PM CDT Temperature 36.2 C (97.1 F) 09/11/2024 2:05 PM CDT Respiratory Rate 16 01/22/2024 10:20 AM CDT Oxygen Saturation 98% 03/27/2024 11:30 AM CDT Inhaled Oxygen Concentration - - Weight 104.8 kg (231 lb) 09/11/2024 2:05 PM CDT Height 162.6 cm (5' 4) 09/11/2024 2:05 PM CDT Body Mass Index 39.65 09/11/2024 2:05 PM CDT Plan of Treatment Not on file Medical Devices Implanted Type Area Watch Assembler Device Identifier Shelf Expiration Date Model / Serial / Lot [employer] Aequalis Perform 7mm Reverse Screw Bone Sterile Latex Free [id number] - [id number] - [id number] Implanted:Qty: 1 on 04/19/2023 by Thor Martinez MD at [facility] Nail Left: Shoulder [employer] [id number] 12/16/2027 [id number] / [id number] / Description:Implant pause pe rformed [employer] Stem Perform Sz 2 Plus Humeral Long Dwx2pl - [id number] - [id number] Implanted:Qty: 1 on 04/19/2023 by Thor Martinez MD at [facility] Other - see comments Left: Shoulder [employer] [id number] 02/08/2028 [id number] / [id number] / Description:Implant Pause pe rformed [employer] Insert Perform 10 Deg [id number] Poz4730 - [id number] - [id number] Implanted:Qty: 1 on 04/19/2023 by Thor Martinez MD at [facility] Other - see comments Left: Shoulder [employer] [id number] 12/23/2026 [id number] / [id number] / Description:Implant Pause pe rformed [facility] [employer] Tornier Aequalis Perform 25mm Lateralize Augment Reverse Shoulder Dqd739 - [id number] - [id number] Implanted:Qty: 1 on 04/19/2023 by Thor Martinez MD at [facility] Other - see comments Left: Shoulder [employer] [id number] 03/08/2028 SWZ312 / [id number] / Description:Implant pause pe rformed [facility] [employer] Tornier Aequalis Perform Od36 Mm Reverse Shoulder +2 Mm Inferior Offset Sphere Glenoid Psx811 - [id number] - [id number] Implanted:Qty: 1 on 04/19/2023 by Thor Martinez MD at [facility] Other - see comments Left: Shoulder [employer] [id number] 08/16/2027 [id number] / [id number] / Description:Implant Pause pe rformed [employer] Aequalis Perform Reversed 5mm 30mm Peripheral Glenoid Screw Gjz796 - Sna - [id number] Implanted:Qty: 2 on 04/19/2023 by Thor Martinez MD at [facility] Screw Left: Shoulder [employer] [id number] / NA / Description:Implant pause pe rformed [employer] Aequalis Perform Reversed 5mm 22mm Peripheral Glenoid Screw Aft630 - Sna - [id number] Implanted:Qty: 1 on 04/19/2023 by Thor Martinez MD at [facility] Screw Left: Shoulder [employer] [id number] / NA / Description:Implant pause pe rformed Total Joint Bilateral: Hip [employer] Simplex P Full Dose Radiopaque Preblend Cement Bone Tobramycin 6197-9-010 - [id number] Implanted:Qty: 1 on 08/30/2022 by April Fowler MD at [facility] Left: Knee [employer] 01/23/2024 6197-9-010 / / [id number] [employer] Simplex P Full Dose Radiopaque Preblend Cement Bone Tobramycin 6197-9-010 - [id number] Implanted:Qty: 1 on 08/30/2022 by April Fowler MD at [facility] Left: Knee [employer] 01/23/2024 6197-9-010 / / [id number] [employer] [id number] Persona Natural Tibia Stem Knee Left 5d E Baseplate Tibial - [id number] Implanted:Qty: 1 on 08/30/2022 by April Fowler MD at [facility] Left: Knee [employer] [id number] 05/07/2032 [id number] / / [id number] [employer] Persona Cruciate Retain Cemented Knee Left 8 Narrow Component [id number] - [id number] Implanted:Qty: 1 on 08/30/2022 by April Fowler MD at [facility] Left: Knee [employer] [id number] 06/05/2032 [id number] / / [id number] [employer] Persona 12mm Knee Left 8-11 E-F Insert Articular Vivacit-E [id number] - [id number] Implanted:Qty: 1 on 08/30/2022 by April Fowler MD at [facility] Left: Knee [employer] [id number] 08/09/2026 [id number] / / [id number] Procedures Procedure Name Priority Date/Time Associated Diagnosis Comments HM DEXA SCAN Routine 01/26/2022 from Last 3 Months or Most Recently Relevant to Health Maintenance Results * HM DEXA SCAN (01/26/2022) us Historical Provider HEALTH MAINTENANCE Final Result from Last 3 Months or Most Recently Relevant to Health Maintenance Insurance [facility] MEDICARE ADVANTAGE [facility] AD[facility]AGE Member Subscriber Plan / Payer (Ef fective 2022-Present) Name:Kelly Johnson Relation to Subscriber:Self Name:Kelly Johnson Payer ID:[id number] (NAIC) Type:[facility]IC[facility] Address: [place] [id number] [facility] ADV[facility]AGE Advance Directives For more information, please contact: [phone] Documents on File Type Date Recorded Patient End Worker Expl anation ADVANCE DIRECTIVE 01/25/2023 12:06 PM Power of Room Service Associate-Medical * Full Code (Latest Code Status on File) Date Activated Date Inactivated Comments 01/22/2024 7:39 AM 01/22/2024 2:46 PM * Full Code Date Activated Date Inactivated Comments 01/22/2024 7:39 AM 01/22/2024 7:39 AM * Full Code Date Activated Date Inactivated Comments 04/22/2023 6:27 PM 04/28/2023 5:20 PM * Full Code Date Activated Date Inactivated Comments 04/19/2023 10:09 AM 04/21/2023 5:46 PM * Full Code Date Activated Date Inactivated Comments 02/09/2023 1:51 PM 02/14/2023 7:13 PM Care Teams Lamination Technician Relationship Specialty Start Date End Date Precious Braun NP [id number] [id number] PCP - General Family Medicine 11/07/24 Rusty Bond MD Consulting Physician Urology 04/28/23
--- OUTSIDE RECORDS SUMMARY | 2024-12-23 09:38 | XMS_ITS | Encounter Summary ---
Author Organization [facility] Address [address] [place] [address] Phone Care Team Providers Care Terminal Makeup Operator Name Role Phone Francheska Fuchs MD Primary Care Provider Deepika Clifford MA Unavailable Unavailable Yandy Johnson MD Unavailable [phone] Virgie Sanabria RN Unavailable Rusty Bond MD Unavailable Precious Braun NP Primary Care Provider [phone] Precious Braun CPAS Primary Care Provider [phone] Encounter Details Date Type Department Care Team (Late st Contact Info) Description 10/02/2022 Telephone [facility] [address] [place] [address] Crystal Jean RN Social History Tobacco Use Types Packs/Day Years Used Date Smoking Tobacco: Never Passive Smoke Exposure: Never Smokeless Tobacco: Never Alcohol Use Standard Drinks/Week Comments Yes 0 (1 standard drink = 0.6 oz pur e alcohol) Social Connection and Isolation Panel [NHANES] A nswer Date Recorded In a typical week, how many times do you talk on the phone with family, friends, or neighbors? Twice a week 10/03/2022 How often do you get together with friends or re latives? Twice a week 10/03/2022 Attends Pentecostalism Services Not on file 10/03 Active Member of Clubs or Organizations Not on f ile 10/03/2022 Attends Club or Organization Meetings Not on lynette e 10/03/2022 Are you , , di vorced, , never , or living with a partner? 10/03/2022 AUDIT-C Answer Date Recorded Q1: How often do you have a drink containing alc ohol? 2-3 times a week 08/30/2022 Q2: How many drinks containi ng alcohol do you have on a typical day when you are drinking? 1 or 2 08/30/2022 Q3: How often do you have si x or more drinks on one occasion? Never 08/30/2022 Overall Financial Resource Strain (CARDIA) Answe r Date Recorded How hard is it for you to pa y for the very basics like food, housing, medical care, and heating? Not hard at all 10/03/2022 PHQ-2 Answer Date Recorded PHQ-2 Total Score (If total score is 3 or more points, staff should administer the PHQ-9) 0 05/10/2022 Hunger Vital Sign Answer Date Recorded Within the past 12 months, y ou worried that your food would run out before you got the money to buy more. Never true 10/04/19 23 Within the past 12 months, t he food you bought just didn't last and you didn't have money to get more. Never true 10/03/2022 PRAPARE - Transportation Answer Date Re corded In the past 12 months, has l ack of transportation kept you from medical appointments or from getting medications? No 09/23 In the past 12 months, has l ack of transportation kept you from meetings, work, or from getting things needed for daily living? No 10/03/2022 Housing Stability Vital Sign Answer Jhonatan e Recorded In the last 12 months, was t here a time when you were not able to pay the mortgage or rent on time? No 10/03/2022 In the last 12 months, how many places have you lived? 1 10/03/2022 In the last 12 months, was t here a time when you did not have a steady place to sleep or slept in a prison (including now)? 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 No / Unsure 10/04/2022 2:12 PM CDT documented as of this encounter Plan of Treatment Not on file documented as of this encounter Visit Diagnoses Not on filedocumented in this encounter Additional Health Concerns Infection Onset Date Last Indicated Resolved Time COVID: Suspected 10/31/2022 10/31/2022 10/31/2022 3:44 AM CDT documented as of this encounter Care Teams Terminal Makeup Operator Relationship Specialty Start Date End Date Francheska Fuchs MD PCP - General Family Practice 05/10/22 03/26/24 Precious Braun NP [address] [place] [address] [address] [place] [address] PCP - General Family Medicine 03/27/24 11/06/24 Precious Braun NP [address] [place] [address] [address] [place] [address] PCP - General Family Medicine 11/07/24 Deepika Clifford MA [address] [place] [address] [facility] Director 10/05/22 10/06/22 Yandy Johnson MD [address] [place] [address] [address] [place] [address] Consulting Physician Gastroenterology 11/02/22 03/25/23 Virgie Sanabria RN [address] [place] [address] Turbo Generator Oiler 02/15/23 03/14/23 Rusty Bond MD [address] [place] [address] Consulting Physician Urology 04/28/23 documented as of this encounter
--- OUTSIDE RECORDS SUMMARY | 2024-12-23 09:38 | XMS_ITS | Clinical Summary ---
Author Organization [facility] Address [address] [address] Care Team Providers Care Oracle Hyperion Consultant Name Role Phone Rusty Bond MD Unavailable Precious Braun NP Primary Care Provider [phone] Allergies Active Allergy Reactions Criticality Noted Date [...] 06/30/2024 Assessment & Plan (06/30/2024 9:28 AM GIFTED TEACHER): Had surgery in April. She is having surveillance every 3 months with urology in [place] Chronic systolic congestive heart failure 2022 Assessment & Plan (06/30/2024 9:29 AM GIFTED TEACHER): Last echo was 65%. Asymptomatic at this time. She continues to follow with Cardiology. Currently on Entresto, Coreg and 12.5 mg spironolactone. Assessment & Plan (12/31/2023 6:17 PM CDT): Chronic. Compensated. Continue spironolactone, Entresto, Coreg Assessment & Plan (05/23/2023 7:12 PM GIFTED TEACHER): New diagnosis during hospitalization. LVEF 35-40%. Continue [...] 05/23/20 Assessment & Plan (06/30/2024 9:35 AM GIFTED TEACHER): HPI: Right eye and right side cheeks [...] now. Assessment & Plan (05/23/2023 7:33 PM GIFTED TEACHER): Patient had recent stroke to the PICA [...] year Assessment & Plan (05/23/2023 7:36 PM GIFTED TEACHER): Due to dizziness and balance issues as a residual of the recent stroke. Continue home health for therapy. May benefit from going to the [facility] for intensive treatment care home current use of anticoagulant Assessment & Plan [...] defer Assessment & Plan (05/23/2023 7:36 PM GIFTED TEACHER): Patient has a history of prior provoked [...] 04/17/2023 Assessment & Plan (06/30/2024 9:18 AM GIFTED TEACHER): Due for lab work. Last GFR 63. Stable. Will continue to monitor Gouty tophi of hand 03/12/2023 Assessment & Plan (06/30/2024 9:26 AM GIFTED TEACHER): History of. She continues on allopurinol 200 [...] packing to prior ileostomy site. F/u in [facility] scheduled for post-op check Cultures - [...] 10/02/2022 Assessment & Plan (05/23/2023 7:35 PM GIFTED TEACHER): Previous DVT had been provoked by surgery. She had been on the low dose of 2.5 mg twice daily after recent surgery when the stroke occurred. She is now on 5 mg twice daily for suspicion of occult embolic causes of the stroke. There is suspicion she may have occult AFib. She does not have any signs of any rewxx-lq-eubv cardiac shunt that could have allowed a [...] stable Assessment & Plan (05/23/2023 7:13 PM GIFTED TEACHER): Chronic. She has a history of tophi [...] 05/10/2022 Assessment & Plan (06/30/2024 9:26 AM GIFTED TEACHER): Lipid abnormalities are stable, reviewed previous lipid levels in [facility]. Continue statin therapy. Lipitor (atorvastatin) Order for lipid panel was given today to be obtained. Pt voiced understanding of lab drawn and continuation of current medication regimen. Assessment & Plan (12/31/2023 6:15 PM CDT): Chronic. Tolerates atorvastatin 80 mg daily. Continue for risk factor modification. Assessment & Plan (05/23/2023 7:35 PM GIFTED TEACHER): Chronic. Now on high-intensity statin given recent [...] helped Assessment & Plan (06/30/2024 9:41 AM GIFTED TEACHER): Worsening. Reached out to cardiology they recommended [...] 05/10/2022 Assessment & Plan (06/30/2024 9:26 AM GIFTED TEACHER): BMI Follow-up includes: education provided. Assessment & [...] 12/31/2023 Assessment & Plan (05/23/2023 7:34 PM GIFTED TEACHER): Acute onset after stroke. Continue current treatment. Keep appointment with ophthalmology. If not improving may benefit from prism lenses Acute CVA (cerebrovascular accident) 04/25/2023 05/23/2023 Dizziness 04/22/2023 12/31/2023 Assessment & Plan (05/23/2023 7:35 PM GIFTED TEACHER): Acute onset due to recent posterior circulation [...] & Plan (09/22/2022 1:02 PM CDT): 09/12 [facility] pursued ins authorization 09/13 Ins denies IPR - peer to peer/appeal performed and lost. vp director of finance of [facility] states she can have PT&OT at SNF and that she does not meet medical complexity requirements for daily evaluation by graining press operator --- discussed with both patient and --- SW to provide list of SNF options, CM to provide home healthcare information 09/14 [facility] appealing the rehab denial despite the [facility] losing the peer to peer, SW to refer to SNFs of patient's choosing for backup placement 09/20 meet with SW daily, facilities continue to deny, Appealing pending 09/22 Appeal approved, patient discharged to [facility] of left upper extremity 09/11/2022 11/09/2022 [...] while NPO 09/07: pain well controlled with COW RIDER 09/08: POD 4. NGT replaced. Pain controlled on COW RIDER. 09/10: POD 6. NPO/NGT. COW RIDER. Pain controlled. 09/11 POD7, pain controlled, ARBF [...] perforated ulcer rather than diverticulitis. 09/05 OR ([facility]) ex-lap, sigmoidectomy, primary anastomosis, diverting loop ileostomy, MELISSA x1 NPO, NGT to LIWS, dPCA for pain control, rivera, MELISSA drain [...] for 1L output witnessed by WORN 09/14 POD AFVSS, ongoing diet tolerance, large volume stoma [...] (09/04/2022): Added automatically from request for surgery [id number] Osteoarthritis of left glenohumeral joint 08/29/2022 06/30/2024 Overview (08/29/2022): Added automatically from request for surgery [id number] Assessment & Plan (03/12/2023 6:00 PM CDT): [...] (08/03/2022): Added automatically from request for surgery [id number] Assessment & Plan (09/22/2022 12:58 PM CDT): H/o recent L knee replacement ([facility] Jan[facility] - 08/30/22) [facility] consults; no [...] 11/09/2022 Elevated LFTs 11/09/2022 Orthostatic dizziness 2022 Encounters Date Type Department Care Team Description 11/21/2024 Telephone [facility] Creative Writing Professor at [address] [address] Staci Clark NP 11/07/2024 Telephone [facility] Primary Care at [address] [address] Precious Braun NP Medical Question/Miscellaneous from Last 3 Months Immunizations Immunization Administration Dates Next Due COVID-19 mRNA ([employer]) 0.3 m L (30 mcg) vaccine (12 [...] 03/16/2018 ZOSTER LIVE 10/09/2006 ZOSTER Recombinant 03/07/2024,07/10/2023 Surgical History Surgery Date Site/Laterality Comments TOTAL HIP ARTHROPLASTY Bilateral right 2007, left 2017 ROTATOR CUFF REPAIR Left right 2019, left 2011 JOINT REPLACEMENT 07/08/2007 Right [facility] BREAST LUMPECTOMY MASTECTOMY 06/25/2000 - 06/24/2001 Right COLONOSCOPY 01/22/2024 CATARACT EXTRACTION COLON SURGERY KNEE ARTHROPLASTY 08/30/2022 Left Medical History Medical History Date Comments Osteoarthritis Hypertension Hypercholesteremia Gout Venous insufficiency CKD (chronic kidney disease) stage 2, GFR 60-89 ml/min Breast cancer (HCC) Eczema Cataracts, bilateral Peritonitis (HCC) 09/03/2022 Added automati jake from request for surgery [id number] Bowel perforation (HCC) 09/04/2022 CHF (congestive heart failure) ([facility]) Stroke ([facility]) 06/29/2023 affec ting R side Diplopia 05/23/2023 S/P exploratory laparotomy Family History Medical History Relation Name Comments Heart disease Brother Christian Bowers Family history of cardiac disorder - (Added by TW Conv) Breast cancer Daughter Heart disease Father Caleb Bowers Hypertension Father Caleb Bowers Hypertension Maternal Grandfather Ventura Bowers Famil y history of hypertension - Relation: Grandfather (Added by TW Conv) Breast cancer Sister Anesthesia problems Neg Hx Relation Name Status Comments Brother Christian Bowers Daughter Father Caleb Bowers Maternal Grandfather Ventura Bowers Sister Social History Tobacco Use Types Packs/Day Years [...] materials from doctor or pharmacy Never 12/28/2022 [facility] Utilities Answer Date Recorded In the past 12 months has e [employer], gas, oil, or water [employer] threatened to shut off services in your [...] often do you attend chur ch or islam services? More than 4 times per year 04/23/2023 Do you belong to any clubs o r organizations such as quaker groups, unions, fraternal or athletic groups, or [...] place to sleep or slept in a longterm (including now)? No 04/23/2023 Personal Safety Answer [...] Master's degree (e.g., MA, MS, Kelly, MEd, LOAN REVIEW OFFICER, ARMANI) 10/09/2022 Comments No Sex and Gender Information Value Date Recorded Sex Assigned at Not on file Legal Sex Female 3:42 AM GIFTED TEACHER Gender Identity Not on file Sexual Orientation Not on file Occupation Industry Job Start Date Job End Date retired Not on file Not on file Not on file Obstetrics History Last Filed Vital Signs Vital Sign Reading [...] 09/11/2024 2:05 PM CDT Plan of Treatment Health Maintenance Due Date Last Done Comments Hepatitis B Screening 02/04/1963 Well Visit 65+ 02/04/2009 Covid-19 Vaccine (2023-07 5 season) 2024 03/07/2024, 03/17/2023, 04/28/2022, Additional history exists Depression Screening 03/27/2025 03/27/2024, 12/31/2023, 04/22/2023, Additional history exists Fall Risk Assessment 03/27/2025 03/27/2024, 01/22/2024, 07/06/2023, Additional history exists Osteoporosis Screening-Bone Density Scan 01/26/2027 01/26/2022 DTaP/Tdap/Td Vaccine (2 - Td or Tdap) 03/16/2028 03/16/2018 Pneumococcal vaccine 65+ Completed 07/08/2018, 03/26 Influenza Vaccine Completed 03/07/2024, , 04/24/2022, Additional history exists Zoster Vaccine Completed 03/07/2024, 06/25, 10/09/2006 Medical Devices Implanted Type Area Ironworker Machine Operator Device Identifier Shelf Expiration Date Model / Serial / Lot MTM Laboratories Aequalis Perform 7mm Reverse Screw Bone Sterile Latex Free [id number] - [id number] - [id number] Implanted:Qty: 1 on 04/19/2023 by Thor Martinez MD at [facility] Nail Left: Shoulder [employer] [id number] 12/16/2027 [id number] / [id number] / Description:Implant pause pe rformed [employer] Stem Perform Sz 2 Plus Humeral Long Dwx2pl - [id number] - [id number] Implanted:Qty: 1 on 04/19/2023 by Thor Martinez MD at [facility] Other - see comments Left: Shoulder [employer] [id number] 02/08/2028 [id number] / [id number] / Description:Implant Pause pe rformed [employer] Insert Perform 10 Deg [id number] - [id number] - [id number] Implanted:Qty: 1 on 04/19/2023 by Thor Martinez MD at [facility] Other - see comments Left: Shoulder [employer] [id number] 12/23/2026 [id number] / [id number] / Description:Implant Pause pe rformed [employer] Tornier Aequalis Perform 25mm Lateralize Augment Reverse Shoulder [id number] - [id number] - [id number] Implanted:Qty: 1 on 04/19/2023 by Thor Martinez MD at [facility] Other - see comments Left: Shoulder [employer] [id number] 03/08/2028 [id number] / [id number] / Description:Implant pause pe rformed [employer] Tornier Aequalis Perform Od36 Mm Reverse Shoulder +2 Mm Inferior Offset Sphere Glenoid [id number] - [id number] - [id number] Implanted:Qty: 1 on 04/19/2023 by Thor Martinez MD at [facility] Other - see comments Left: Shoulder [employer] [id number] 08/16/2027 [id number] / [id number] / Description:Implant Pause pe rformed [employer] Aequalis Perform Reversed 5mm 30mm Peripheral Glenoid Screw Jaf988 - Sna - [id number] Implanted:Qty: 2 on 04/19/2023 by Thor Martinez MD at [facility] Screw Left: Shoulder [employer] [id number] / NA / Description:Implant pause pe rformed [employer] Aequalis Perform Reversed 5mm 22mm Peripheral Glenoid Screw Bjz551 - Sna - [id number] Implanted:Qty: 1 on 04/19/2023 by Thor Martinez MD at [facility] Screw Left: Shoulder [employer] [id number] / NA / Description:Implant pause pe rformed Total Joint Bilateral: Hip [employer] Simplex P Full Dose Radiopaque Preblend Cement Bone Tobramycin 6197-9-010 - [id number] Implanted:Qty: 1 on 08/30/2022 by April Fowler MD at [facility] Left: Knee [employer] 01/23/2024 6197-9-010 / / [id number] [employer] Simplex P Full Dose Radiopaque Preblend Cement Bone Tobramycin 6197-9-010 - [id number] Implanted:Qty: 1 on 08/30/2022 by April Fowler MD at [facility] Left: Knee [employer] 01/23/2024 6197-9-010 / / [id number] [employer] [id number] Persona Natural Tibia Stem Knee Left 5d E Baseplate Tibial - [id number] Implanted:Qty: 1 on 08/30/2022 by April Fowler MD at [facility] Left: Knee [employer] [id number] 05/07/2032 [id number] / / [id number] [employer] Persona Cruciate Retain Cemented Knee Left 8 Narrow Component [id number] - [id number] Implanted:Qty: 1 on 08/30/2022 by April Fowler MD at [facility] Left: Knee [employer] [id number] 06/05/2032 [id number] / / [id number] [employer] Persona 12mm Knee Left 8-11 E-F Insert Articular Vivacit-E [id number] - [id number] Implanted:Qty: 1 on 08/30/2022 by April Fowler MD at [facility] Left: Knee [employer] [id number] 08/09/2026 [id number] / / [id number] Procedures Procedure Name Priority Date/Time Associated Diagnosis Comments DEXA SCAN Routine 01/26/2022 from Last 3 Months or Most Recently Relevant to Health Maintenance Results * HM DEXA SCAN (01/26/2022) Historical Provider HEALTH MAINTENANCE Final Result from Last 3 Months or Most Recently Relevant to Health Maintenance Insurance [facility] MEDICARE ADVANTAGE [facility] MEDICARE ADVANTAGE Advance Directives For more information, please contact: [phone] Documents on File Type Date Recorded Patient Business Continuity Analyst Expl anation ADVANCE DIRECTIVE 01/25/2023 12:06 PM Power of Slicing Machine Operator/Tender-Medical * Full Code (Latest Code Status on [...] 1:51 PM 02/14/2023 7:13 PM Care Teams Oracle Hyperion Consultant Relationship Specialty Start Date End Date Precious Braun NP [address] [facility] [address] [place] [address] PCP - General Family Medicine 11/07/24 Rusty Bond MD Consulting Physician Urology 04/28/23
[2024-12-23 10:21] LABS: Anion Gap 10 mmol/L (4-12); Blood Urea Nitrogen 20 mg/dL (7-17); Calcium 9.7 mg/dL (8.4-10.2); Carbon Dioxide 26 mmol/L (22-30); Chloride 104 mmol/L (98-107); Estimated Glomerular Filt Rate 57; Glucose 104 mg/dL (65-110); Potassium 4.5 mmol/L (3.4-5.0); Sodium 140 mmol/L (137-145)
== END 2024-12-23 09:23 | disposition home or self-care (01) ==
LOC: ANHSURGERY 09:27
PROVIDERS: Anesthesiology; PCP Nurse Practitioner Family; Visit Provider Urology
DX: I10 Essential (primary) hypertension (principal); Z01.818 Encounter for other preprocedural examination
CPT/HCPCS: 36415; 80048

== ENCOUNTER 2024-12-25 01:47 | Day surgery (SDC) | payer MEDICARE, SELFPAY ==
--- NOTE | 2024-12-22 12:52 | PC.NURSE ---
Report to the Outpatient Waiting Room, entrance under the green pavilion located off [facility], at time _1030 on date __12/25/24 . Planned Procedure Time: __1230 .? Time changes happen often and if your time is changed the preop area will call you the afternoon before. - You and your visitor will be asked to self-screen and do not enter if you have any COVID symptoms. Please call surgeon if you need to reschedule. - A mask is optional within the hospital at this time. Patients may have clear liquids (water, carbonated beverages, clear teas, apple juice) until 3 hours prior to surgery ( 9:30am) with a maximum of 20 ounces. - No food from midnight until time of surgery and no smoking, or chewing tobacco (or any form of nicotine). No chewing gum, candy or mints. - Take only the following medications with a SIP of water on the morning of surgery: ___CARVEDILOL DO NOT STOP ANY OF YOUR OTHER PRESCRIPTION MEDICATIONS PRIOR TO SURGERY EXCEPT THE FOLLOWING Hold all vitamins and supplements for 3 days per anesthesiologist.LAST DOSE 12/21/24 Medications to discontinue per physician ADONIS PT STATES LAST DOSE 12/19/[address] CRAMER Please no make-up, nail croatian, hairspray, perfume, deodorant, or body powder the day of surgery.? No jewelry (including any body piercings) or valuables the day of surgery, leave them at home.? Please take a shower or bath the night before, or the morning of, surgery with an antibacterial soap.? Wear comfortable, loose fitting clothing.? Children are encouraged to wear pajamas. - Jewelry must be removed prior to entering the operating room.? Rings and piercings that are not removed may be cut off. - The hospital will not accept responsibility for valuables.? - Please leave all valuables, including medications, at home the day of surgery. If you are going home after surgery, a licensed delivery driver assistant must drive you home.? - NO public transportation without another adult if you receive anesthesia. - We recommend that an adult stay with you for 24 hours following discharge. - We also recommend that you do not drive, make important decision, drink alcoholic beverages, or take any drugs that were not prescribed by your health care provider for at least 24 hours after your discharge time. For Pediatric surgeries, we recommend two adults accompany the child home. Follow any additional instructions given to you from your surgeon. Telephone instructions given to PATIENT and asked if any additional questions and then verbalized understanding. Patient advised to call surgeon office or pre surgery nurse liaison [phone] if any additional questions.
[2024-12-22 13:07] VITALS: BMI 39.4
[2024-12-25] VITALS (9 sets, daily range): BP systolic 114–160; BP diastolic 55–102; PULSE 69–81; RESP 12–18; TEMP 36.1–36.2; O2SAT 97–98; BMI 38.3
--- OUTSIDE RECORDS SUMMARY | 2024-12-25 01:49 | XMS_ITS | Encounter Summary ---
Author Organization [facility] Address [address] [place] [address] Phone Care Team Providers Care Tractor Mechanic Name Role Phone Francheska Fuchs MD Primary Care Provider Deepika Clifford MA Unavailable Unavailable Yandy Johnson MD Unavailable [phone] Virgie Sanabria RN Unavailable [phone] Rusty Bond MD Unavailable Precious Braun NP Primary Care Provider Precious Braun TIRE TRIMMER HAND Primary Care Provider [phone] Encounter Details Date Type Department Care Team (Late st Contact Info) Description 10/02/2022 Telephone [facility] [address] [place] [address] Crystal Jean RN Social History Tobacco Use [...] re latives? Twice a week 10/03/2022 Attends Spiritism Services Not on file 10/03 Active Member [...] place to sleep or slept in a custodial (including now)? No 10/03/2022 Comments No Sex and Gender Information Value Date Recorded Sex Assigned at Not on file Legal Sex Female 3:42 AM ANODE WORKER Gender Identity Not on file Sexual Orientation [...] documented as of this encounter Care Teams Tractor Mechanic Relationship Specialty Start Date End Date Francheska Fuchs MD PCP - General Family Practice 05/10/22 03/26/24 Precious Braun NP [address] [place] [address] [address] [place] [address] PCP - General Family Medicine 03/27/24 11/06/24 Precious Braun NP [address] [place] [address] [address] [place] [address] PCP - General Family Medicine 11/07/24 Deepika Clifford MA [address] [place] [address] ACO Care Medical Assistant Per Diem 10/05/22 10/06/22 Yandy Johnson MD [address] [place] [address] [address] [place] [address] Consulting Physician Gastroenterology 11/02/22 03/25/23 Virgie Sanabria RN [address] [place] [address] Learning And Development Specialist 02/15/23 03/14/23 Rusty Bond MD [address] [place] [address] Consulting Physician Urology 04/28/23 documented as of this encounter
--- OUTSIDE RECORDS SUMMARY | 2024-12-25 01:49 | XMS_ITS | Referral Summary ---
Author Organization [facility] Address [address] [address] Care Team Providers Care Payroll Lead Name Role Phone Rusty Bond MD Unavailable Precious Braun NP Primary Care Provider [phone] Encounters Date Type Department Care Team Description 11/21/2024 Telephone [place] Calculating Machine Mechanic at [address] [place] [phone] Staci Clark NP 11/07/[address] [facility] Primary Care at [address] [address] Precious Braun NP Medical Question/Miscellaneous [...] 06/30/2024 Assessment & Plan (06/30/2024 9:28 AM GEOSCIENCE SPECIALIST): Had surgery in April. She is having surveillance every 3 months with urology in [place] Chronic systolic congestive heart failure 2022 Assessment & Plan (06/30/2024 9:29 AM GEOSCIENCE SPECIALIST): Last echo was 65%. Asymptomatic at this time. She continues to follow with Cardiology. Currently on Entresto, Coreg and 12.5 mg spironolactone. Assessment & Plan (12/31/2023 6:17 PM CDT): Chronic. Compensated. Continue spironolactone, Entresto, Coreg Assessment & Plan (05/23/2023 7:12 PM GEOSCIENCE SPECIALIST): New diagnosis during hospitalization. LVEF 35-40%. [...] 05/23/20 Assessment & Plan (06/30/2024 9:35 AM GEOSCIENCE SPECIALIST): HPI: Right eye and right side [...] now. Assessment & Plan (05/23/2023 7:33 PM GEOSCIENCE SPECIALIST): Patient had recent stroke to the [...] year Assessment & Plan (05/23/2023 7:36 PM GEOSCIENCE SPECIALIST): Due to dizziness and balance issues as a residual of the recent stroke. Continue home health for therapy. [facility] benefit [facility] current use of anticoagulant Assessment & Plan [...] defer Assessment & Plan (05/23/2023 7:36 PM GEOSCIENCE SPECIALIST): Patient has a history of prior [...] 04/17/2023 Assessment & Plan (06/30/2024 9:18 AM GEOSCIENCE SPECIALIST): Due for lab work. Last GFR 63. Stable. 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 She continues on allopurinol [...] packing to prior ileostomy site. F/u in [facility] scheduled for post-op check Cultures - [...] 10/02/2022 Assessment & Plan (05/23/2023 7:35 PM GEOSCIENCE SPECIALIST): Previous DVT had been provoked by surgery. She had been on the low dose of 2.5 mg twice daily after recent surgery when the stroke occurred. She is now on 5 mg twice daily for suspicion of occult embolic causes of the stroke. There is suspicion she may have occult AFib. She does not have any signs of any hipef-oh-tqan cardiac shunt that could have allowed a [...] stable Assessment & Plan (05/23/2023 7:13 PM GEOSCIENCE SPECIALIST): Chronic. She has a history of [...] 05/10/2022 Assessment & Plan (06/30/2024 9:26 AM GEOSCIENCE SPECIALIST): Lipid abnormalities are stable, reviewed previous lipid levels in epic. Continue statin therapy. Lipitor (atorvastatin) Order for lipid panel was given today to be obtained. Pt voiced understanding of lab drawn and continuation of current medication regimen. Assessment & Plan (12/31/2023 6:15 PM CDT): Chronic. Tolerates atorvastatin 80 mg daily. Continue for risk factor modification. Assessment & Plan (05/23/2023 7:35 PM GEOSCIENCE SPECIALIST): Chronic. Now on high-intensity statin given [...] helped Assessment & Plan (06/30/2024 9:41 AM GEOSCIENCE SPECIALIST): Worsening. Reached out to cardiology they [...] 05/10/2022 Assessment & Plan (06/30/2024 9:26 AM GEOSCIENCE SPECIALIST): BMI Follow-up includes: education provided. Assessment [...] 12/31/2023 Assessment & Plan (05/23/2023 7:34 PM GEOSCIENCE SPECIALIST): Acute onset after stroke. Continue current treatment. Keep appointment with ophthalmology. If not improving may benefit from prism lenses Acute CVA (cerebrovascular accident) 04/25/2023 05/23/2023 Dizziness 04/22/2023 12/31/2023 Assessment & Plan (05/23/2023 7:35 PM GEOSCIENCE SPECIALIST): Acute onset due to recent posterior [...] - peer to peer/appeal performed and lost. director title of ins states she can have PT&OT at SNF and that she does not meet medical complexity requirements for daily evaluation by chemical equipment sales engineer --- discussed with both patient and --- SW to provide list of SNF options, CM to provide home healthcare information 09/14 [facility] appealing the rehab denial despite the [facility] losing the peer to peer, [facility] to refer to SNFs of patient's choosing for backup placement 09/20 meet with SW daily, facilities continue to deny, Appealing pending 09/22 Appeal approved, patient discharged to [place] Edema of left upper extremity 09/11/2022 11/09/2022 [...] while NPO 09/07: pain well controlled with STOPE MINER 09/08: POD 4. NGT replaced. Pain controlled on STOPE MINER. 09/10: POD 6. NPO/NGT. STOPE MINER. Pain controlled. 09/11 POD7, pain controlled, ARBF [...] perforated ulcer rather than diverticulitis. 09/05 OR ([facility]) ex-lap, sigmoidectomy, primary anastomosis, diverting loop [...] (09/04/2022): Added automatically from request for surgery [id number] Osteoarthritis of left glenohumeral joint 08/29/2022 06/30/2024 Overview (08/29/2022): Added automatically from request for surgery [id number] Assessment & Plan (03/12/2023 6:00 PM CDT): [...] (08/03/2022): Added automatically from request for surgery [id number] Assessment & Plan (09/22/2022 12:58 PM CDT): [...] Immunization Administration Dates Next Due COVID-19 mRNA ([employer]) 0.3 m L (30 mcg) vaccine (12 [...] materials from doctor or pharmacy Never 12/28/2022 [facility] Utilities Answer Date Recorded In the past 12 months has th e Nonpareil, gas, oil, or water License Buddy threatened to shut off services in your [...] often do you attend chur ch or religion services? More than 4 times per year 04/23/2023 Do you belong to any clubs o r organizations such as faith groups, unions, fraternal or athletic groups, or [...] place to sleep or slept in a detention (including now)? No 04/23/2023 Personal Safety Answer [...] Master's degree (e.g., MA, MS, Kelly, MEd, PLASTIC WORKER, ARMANI) 10/09/2022 Comments No Sex and Gender Information Value Date Recorded Sex Assigned at Not on file Legal Sex Female 3:42 AM GEOSCIENCE SPECIALIST Gender Identity Not on file Sexual [...] on file Medical Devices Implanted Type Area Waste Duster Device Identifier Shelf Expiration Date Model / Serial / Lot [employer] Inc Aequalis Perform 7mm Reverse Screw Bone Sterile Latex Free [id number] - [id number] - [id number] Implanted:Qty: 1 on 04/19/2023 by Thor Martinez MD at [facility] Nail Left: Shoulder [employer] [id number] 12/16/2027 CDX726 / [id number] / Description:Implant pause pe rformed [employer] Stem Perform Sz 2 Plus Humeral Long Dwx2pl - [id number] - [id number] Implanted:Qty: 1 on 04/19/2023 by Thor Martinez MD at [facility] Other - see comments Left: Shoulder [employer] [id number] 02/08/2028 [id number] / [id number] / Description:Implant Pause pe rformed [employer] Insert Perform 10 Deg [id number] - [id number] - [id number] Implanted:Qty: 1 on 04/19/2023 by Thor Martinez MD at [facility] Other - see comments Left: Shoulder [employer] [id number] 12/23/2026 [id number] / [id number] / Description:Implant Pause pe rformed Well [employer] Inc Tornier Aequalis Perform 25mm Lateralize Augment Reverse Shoulder Fzh363 - [id number] - [id number] Implanted:Qty: 1 on 04/19/2023 by Thor Martinez MD at [facility] Other - see comments Left: Shoulder [employer] [id number] 03/08/2028 QLC509 / [id number] / Description:Implant pause pe rformed [employer] Tornier Aequalis Perform Od36 Mm Reverse Shoulder +2 Mm Inferior Offset Sphere Glenoid Hgu995 - [id number] - [id number] Implanted:Qty: 1 on 04/19/2023 by Thor Martinez MD at [facility] Other - see comments Left: Shoulder [employer] [id number] 08/16/2027 TCE766 / [id number] / Description:Implant Pause pe rformed [employer] Aequalis Perform Reversed 5mm 30mm Peripheral Glenoid Screw Fzt189 - Sna - [id number] Implanted:Qty: 2 on 04/19/2023 by Thor Martinez MD at [facility] Screw Left: Shoulder [employer] Inc [id number] / NA / Description:Implant pause pe rformed [employer] Aequalis Perform Reversed 5mm 22mm Peripheral Glenoid Screw Obh868 - Sna - [id number] Implanted:Qty: 1 on 04/19/2023 by Thor Martinez MD at [facility] Screw Left: Shoulder [employer] Inc [id number] / NA / Description:Implant pause pe rformed Total Joint Bilateral: Hip [facility] Simplex P Full Dose Radiopaque Preblend Cement Bone Tobramycin 6197-9-010 - [id number] Implanted:Qty: 1 on 08/30/2022 by April Fowler MD at [facility] Left: Knee [facility] 01/23/2024 6197-9-010 / / [id number] [employer] Simplex P Full Dose Radiopaque Preblend Cement Bone Tobramycin 6197-9-010 - [id number] Implanted:Qty: 1 on 08/30/2022 by April Fowler MD at [facility] Left: Knee [facility] 01/23/2024 6197-9-010 / / [id number] Artem [employer] [id number] Persona Natural Tibia Stem Knee Left 5d E Baseplate Tibial - [id number] Implanted:Qty: 1 on 08/30/2022 by April Fowler MD at [facility] Left: Knee [employer] [id number] 05/07/2032 [id number] / / [id number] [employer] Persona Cruciate Retain Cemented Knee Left 8 Narrow Component [id number] - [id number] Implanted:Qty: 1 on 08/30/2022 by April Fowler MD at [facility] Left: Knee [employer] [id number] 06/05/2032 [id number] / / [id number] [employer] Persona 12mm Knee Left 8-11 E-F Insert Articular Vivacit-E [id number] - [id number] Implanted:Qty: 1 on 08/30/2022 by April Fowler MD at [facility] Left: Knee [employer] [id number] 08/09/2026 [id number] / / [id number] Procedures Procedure Name Priority Date/Time Associated Diagnosis Comments HM DEXA SCAN Routine 01/26/2022 from Last 3 Months or Most Recently Relevant to Health Maintenance Results * HM DEXA SCAN (01/26/2022) us Historical Provider HEALTH MAINTENANCE Final Result from Last 3 Months or Most Recently Relevant to Health Maintenance Insurance [facility] MEDIC[facility] ADVANTAGE [facility] Member Subscriber Plan / Payer (Ef fective 2022-Present) Name:Kelly Johnson Relation to Subscriber:Self Name:Kelly Johnson Payer ID:[id number] (NAIC) Type:[facility] MEDICARE Address: [place] [phone] [facility] MEDIC[facility] ADVANTAGE Advance Directives For more information, please contact: [phone] Documents on File Type Date Recorded Patient Enrollment Clerk Expl anation ADVANCE DIRECTIVE 01/25/2023 12:06 PM Power of Cartography Technician-Medical * Full Code (Latest Code Status on [...] 1:51 PM 02/14/2023 7:13 PM Care Teams Payroll Lead Relationship Specialty Start Date End Date Precious Braun NP [address] [id number] PCP - General Family Medicine 11/07/24 Rusty Bond MD Consulting Physician Urology 04/28/23
--- OUTSIDE RECORDS SUMMARY | 2024-12-25 01:49 | XMS_ITS | Clinical Summary ---
Author Organization [facility] Address [address] [address] Care Team Providers Care Mortgage Processing Clerk Name Role Phone Rusty Bond MD Unavailable Precious Braun NP Primary Care Provider [phone] Allergies Active Allergy Reactions Criticality Noted Date [...] 06/30/2024 Assessment & Plan (06/30/2024 9:28 AM ZIGZAG STITCHER): Had surgery in April. She is having surveillance every 3 months with urology in [place] Chronic systolic congestive heart failure 2022 Assessment & Plan (06/30/2024 9:29 AM ZIGZAG STITCHER): Last echo was 65%. Asymptomatic at this time. She continues to follow with Cardiology. Currently on Entresto, Coreg and 12.5 mg spironolactone. Assessment & Plan (12/31/2023 6:17 PM CDT): Chronic. Compensated. Continue spironolactone, Entresto, Coreg Assessment & Plan (05/23/2023 7:12 PM ZIGZAG STITCHER): New diagnosis during hospitalization. LVEF 35-40%. Continue [...] 05/23/20 Assessment & Plan (06/30/2024 9:35 AM ZIGZAG STITCHER): HPI: Right eye and right side cheeks [...] now. Assessment & Plan (05/23/2023 7:33 PM ZIGZAG STITCHER): Patient had recent stroke to the PICA [...] year Assessment & Plan (05/23/2023 7:36 PM ZIGZAG STITCHER): Due to dizziness and balance issues as a residual of the recent stroke. Continue home health for therapy. May benefit from going to the [facility] current use of anticoagulant Assessment & Plan [...] defer Assessment & Plan (05/23/2023 7:36 PM ZIGZAG STITCHER): Patient has a history of prior provoked [...] 04/17/2023 Assessment & Plan (06/30/2024 9:18 AM ZIGZAG STITCHER): Due for lab work. Last GFR 63. Stable. 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 She continues on allopurinol 200 [...] packing to prior ileostomy site. F/u in [facility] scheduled for post-op check Cultures - none [...] 10/02/2022 Assessment & Plan (05/23/2023 7:35 PM ZIGZAG STITCHER): Previous DVT had been provoked by surgery. She had been on the low dose of 2.5 mg twice daily after recent surgery when the stroke occurred. She is now on 5 mg twice daily for suspicion of occult embolic causes of the stroke. There is suspicion she may have occult AFib. She does not have any signs of any lktoy-cn-jbag cardiac shunt that could have allowed a [...] stable Assessment & Plan (05/23/2023 7:13 PM ZIGZAG STITCHER): Chronic. She has a history of tophi [...] 05/10/2022 Assessment & Plan (06/30/2024 9:26 AM ZIGZAG STITCHER): Lipid abnormalities are stable, reviewed previous lipid levels in [facility]. Continue statin therapy. Lipitor (atorvastatin) Order for lipid panel was given today to be obtained. Pt voiced understanding of lab drawn and continuation of current medication regimen. Assessment & Plan (12/31/2023 6:15 PM CDT): Chronic. Tolerates atorvastatin 80 mg daily. Continue for risk factor modification. Assessment & Plan (05/23/2023 7:35 PM ZIGZAG STITCHER): Chronic. Now on high-intensity statin given recent [...] helped Assessment & Plan (06/30/2024 9:41 AM ZIGZAG STITCHER): Worsening. Reached out to cardiology they recommended [...] 05/10/2022 Assessment & Plan (06/30/2024 9:26 AM ZIGZAG STITCHER): BMI Follow-up includes: education provided. Assessment & [...] 12/31/2023 Assessment & Plan (05/23/2023 7:34 PM ZIGZAG STITCHER): Acute onset after stroke. Continue current treatment. Keep appointment with ophthalmology. If not improving may benefit from prism lenses Acute CVA (cerebrovascular accident) 04/25/2023 05/23/2023 Dizziness 04/22/2023 12/31/2023 Assessment & Plan (05/23/2023 7:35 PM ZIGZAG STITCHER): Acute onset due to recent posterior circulation [...] & Plan (09/22/2022 1:02 PM CDT): 09/12 [facility] pursued ins authorization 09/13 Ins denies IPR - peer to peer/appeal performed and lost. organizational development director of [facility] states she can have PT&OT at SNF and that she does not meet medical complexity requirements for daily evaluation by geophysicist --- discussed with both patient and --- SW to provide list of SNF options, CM to provide home healthcare information 09/14 [facility] appealing the rehab denial despite the [facility] losing the peer to peer, SW to refer to SNFs of patient's choosing for backup placement 09/20 meet with SW daily, facilities continue to deny, Appealing pending 09/22 Appeal approved, patient discharged to [facility] Edema of left upper extremity 09/11/2022 11/09/2022 [...] while NPO 09/07: pain well controlled with CONCRETE FLOAT MAKER 09/08: POD 4. NGT replaced. Pain controlled on CONCRETE FLOAT MAKER. 09/10: POD 6. NPO/NGT. CONCRETE FLOAT MAKER. Pain controlled. 09/11 POD7, pain controlled, ARBF [...] perforated ulcer rather than diverticulitis. 09/05 OR ([facility]) ex-lap, sigmoidectomy, primary anastomosis, diverting [...] (09/04/2022): Added automatically from request for surgery [id number] Osteoarthritis of left glenohumeral joint 08/29/2022 06/30/2024 Overview (08/29/2022): Added automatically from request for surgery [id number] Assessment & Plan (03/12/2023 6:00 PM CDT): [...] (08/03/2022): Added automatically from request for surgery [id number] Assessment & Plan (09/22/2022 12:58 PM CDT): H/o recent L knee replacement ([facility] - 08/30/22) [facility] consults; no [...] Type Department Care Team Description 11/21/2024 Telephone [place] Multisensor Intelligence Officer at [address] [address] Staci Clark NP 11/07/2024 Telephone [facility] Primary Care at [address] [address] Precious Braun NP Medical Question/Miscellaneous from Last 3 Months Immunizations Immunization Administration Dates Next Due COVID-19 mRNA ([employer]) 0.3 m L (30 mcg) vaccine [...] 2019, left 2011 JOINT REPLACEMENT 07/08/2007 Right [facility] BREAST LUMPECTOMY MASTECTOMY 06/25/2000 - 06/24/2001 Right COLONOSCOPY 01/22/2024 CATARACT EXTRACTION COLON SURGERY KNEE ARTHROPLASTY 08/30/2022 Left Medical History Medical History Date Comments Osteoarthritis Hypertension Hypercholesteremia Gout Venous insufficiency CKD (chronic kidney disease) stage 2, GFR 60-89 ml/min Breast cancer (HCC) Eczema Cataracts, bilateral Peritonitis (HCC) 09/03/2022 Added automati jake from request for surgery [id number] Bowel perforation (HCC) 09/04/2022 CHF (congestive heart failure) ([facility]) Stroke ([facility]) 06/29/2023 affec ting R side Diplopia 05/23/2023 [...] materials from doctor or pharmacy Never 12/28/2022 [facility] Utilities Answer Date Recorded In the past 12 months has e [employer], gas, oil, or water Stem threatened to shut off services in your [...] often do you attend chur ch or hindu services? More than 4 times per year 04/23/2023 Do you belong to any clubs o r organizations such as confucianist groups, unions, fraternal or athletic groups, or [...] place to sleep or slept in a mcfp (including now)? No 04/23/2023 Personal Safety Answer [...] Master's degree (e.g., MA, MS, Kelly, MEd, EXECUTIVE PRODUCER, ARMANI) 10/09/2022 Comments No Sex and Gender Information Value Date Recorded Sex Assigned at Not on file Legal Sex Female 3:42 AM ZIGZAG STITCHER Gender Identity Not on file Sexual Orientation [...] 06/25, 10/09/2006 Medical Devices Implanted Type Area Research Laboratory Specialist Device Identifier Shelf Expiration Date Model / Serial / Lot [employer] Aequalis Perform 7mm Reverse Screw Bone Sterile Latex Free [id number] - [id number] - [id number] Implanted:Qty: 1 on 04/19/2023 by Thor Martinez MD at [facility] Nail Left: Shoulder [employer] [id number] 12/16/2027 DEZ359 / [id number] / Description:Implant pause pe rformed [employer] Stem Perform Sz 2 Plus Humeral Long Dwx2pl - [id number] - [id number] Implanted:Qty: 1 on 04/19/2023 by Thor Martinez MD at [facility] Other - see comments Left: Shoulder [employer] [id number] 02/08/2028 DWX2PL / [id number] / Description:Implant Pause pe rformed [employer] Insert Perform 10 Deg [id number] [id number] - [id number] - [id number] Implanted:Qty: 1 on 04/19/2023 by Thor Martinez MD at [facility] Other - see comments Left: Shoulder [employer] [id number] 12/23/2026 [id number] / [id number] / Description:Implant Pause pe rformed [employer] Tornier Aequalis Perform 25mm Lateralize Augment Reverse Shoulder Sxx260 - [id number] - [id number] Implanted:Qty: 1 on 04/19/2023 by Thor Martinez MD at [facility] Other - see comments Left: Shoulder [employer] [id number] 03/08/2028 WES866 / [id number] / Description:Implant pause pe rformed [employer] Tornier Aequalis Perform Od36 Mm Reverse Shoulder +2 Mm Inferior Offset Sphere Glenoid Vpf769 - [id number] - [id number] Implanted:Qty: 1 on 04/19/2023 by Thor Martinez MD at [facility] Other - see comments Left: Shoulder [employer] [id number] 08/16/2027 JUI600 / [id number] / Description:Implant Pause pe rformed [employer] Aequalis Perform Reversed 5mm 30mm Peripheral Glenoid Screw Noj849 - Sna - [id number] Implanted:Qty: 2 on 04/19/2023 by Thro Martinez MD at [facility] Screw Left: Shoulder [employer] [id number] / NA / Description:Implant pause pe rformed [employer] Aequalis Perform Reversed 5mm 22mm Peripheral Glenoid Screw Toa134 - Sna - [id number] Implanted:Qty: 1 on 04/19/2023 by Thor Martinez MD at [facility] Screw Left: Shoulder [employer] [id number] / NA / Description:Implant pause pe rformed Total Joint Bilateral: Hip [facility] Simplex P Full Dose Radiopaque Preblend Cement Bone Tobramycin 6197-9-010 - [id number] Implanted:Qty: 1 on 08/30/2022 by April Fowler MD at [facility] Left: Knee [facility] 01/23/2024 6197-9-010 / / [id number] [facility] Simplex P Full Dose Radiopaque Preblend Cement Bone Tobramycin 6197-9-010 - [id number] Implanted:Qty: 1 on 08/30/2022 by April Fowler MD at [facility] Left: Knee [facility] 01/23/2024 6197-9-010 / / [id number] Artem [employer] [id number] Persona Natural Tibia Stem Knee Left 5d E Baseplate Tibial - [id number] Implanted:Qty: 1 on 08/30/2022 by April Fowler MD at [facility] Left: Knee [employer] [id number] 05/07/2032 [id number] / / [id number] [employer] Persona Cruciate Retain Cemented Knee Left 8 Narrow Component [id number] - [id number] Implanted:Qty: 1 on 08/30/2022 by April Fowler MD at [facility] Left: Knee [employer] [id number] 06/05/2032 [id number] / / [id number] Artem [employer] Persona 12mm Knee Left 8-11 E-F Insert Articular Vivacit-E [id number] - [id number] Implanted:Qty: 1 on 08/30/2022 by April Fowler MD at [facility] Left: Knee [employer] [id number] 08/09/2026 [id number] / / [id number] Procedures Procedure Name Priority Date/Time Associated Diagnosis Comments DEXA SCAN Routine 01/26/2022 from Last 3 Months or Most Recently Relevant to Health Maintenance Results * HM DEXA SCAN (01/26/2022) Historical Provider HEALTH MAINTENANCE Final Result from Last 3 Months or Most Recently Relevant to Health Maintenance Insurance [facility] AD[facility] Advance Directives For more information, please contact: [phone] Documents on File Type Date Recorded Patient Nurse Ortho Expl anation ADVANCE DIRECTIVE 01/25/2023 12:06 PM Power of Field Service Rep-Medical * Full Code (Latest Code Status on [...] 1:51 PM 02/14/2023 7:13 PM Care Teams Mortgage Processing Clerk Relationship Specialty Start Date End Date Precious Braun NP [address] [facility] [address] [place] [address] PCP - General Family Medicine 11/07/24 Rusty Bond MD Consulting Physician Urology 04/28/23
--- NOTE | 2024-12-25 07:20 | WPDHPUPDATE1 ---
History and Physical Update Update Date/Time: 12/25/24 07:20 History and Physical has been reviewed, including an updated exam of the patient. There are NO changes in the patient's condition. Risks, benefits, and alternatives have been discussed and questions answered. Patient agrees to proceed with procedure.
[2024-12-25] MEDS: LACTATED RINGERS 1,000 ML 30 ML IV CONT (11:00)
--- NOTE | 2024-12-25 11:38 | P.PNAN_ITS ---
Anes - Initial Pre Proc Eval Procedure: Operation Date: 12/25/24 12:30 Proposed Procedures p Trans Urethral Resection Bladder Tumor with Gemcitabine Instillation - Zheng Salazar MD Date/Time: 12/25/24 11:38 Surgeon: Zheng Salazar MD Pre Op Diagnosis: bladder CA Patient Data Age: 79 Gender: F Height: 1.63 m Weight: 101.3 kg Last Vital Signs Temp 36.2 C L 12/25/24 10:30 Pulse 74 12/25/24 10:30 Resp 18 12/25/24 10:30 BP 143/79 H 12/25/24 10:30 Pulse Ox 97 12/25/24 10:30 O2 Del Method Room Air 12/25/24 10:30 Allergies Allergy/AdvReac Type Severity Reaction Status Date / Time adhesive tape Allergy Mild SORES Verified 12/25/24 11:12 Sulfa (Sulfonamide Allergy Mild RASH, Verified 12/25/24 11:12 Antibiotics) ITCHING sulfanilamide Allergy Mild Rash Verified 12/25/24 11:12 Home Medications ?Medication ?Instructions ?Recorded ?Confirmed ?Type acetaminophen 325 mg capsule 650 mg (2 x 325 mg) PO Q6H PRN 05/15/23 12/22/24 Rx (Tylenol) pain #90 caps atorvastatin 80 mg PO HS #30 tabs 05/15/23 12/25/24 Rx spironolactone 25 mg tablet 12.5 mg (1/2 x 25 mg) PO DAILY #30 05/15/23 12/25/24 Rx tabs allopurinol 100 mg tablet 100 mg PO BID 05/12/24 12/25/24 History apixaban 5 mg tablet (Eliquis) 5 mg PO BID 05/12/24 12/25/24 History carvedilol 3.125 mg PO BID 05/12/24 12/25/24 History cholecalciferol (vitamin D3) 250 250 mcg PO DAILY 05/12/24 12/22/24 History mcg (10,000 unit) capsule sacubitril 49 mg-valsartan 51 mg 1 tablet PO BID 05/12/24 12/22/24 History tablet (Entresto) hydrocodone 5 mg-acetaminophen 325 1 - 2 tablet PO Q6H PRN pain #20 05/15/24 12/22/24 Rx mg tablet tabs cholecalciferol (vitamin D3) 25 25 mcg PO DAILY 12/22/24 12/25/24 History mcg (1,000 unit) capsule sacubitril 97 mg-valsartan 103 mg 1 tablet PO BID 12/22/24 12/25/24 History tablet (Entresto) Patient hx anesthesia problems: none Family hx anesthesia problems: none Results Review: All pre-operative results and documents have been reviewed as part of the pre- operative evaluation. [facility] Past Medical History Medical History Gout DJD of AC (acromioclavicular) joint Right shoulder pain Vitamin B12 deficiency Vitamin D deficiency, unspecified Rotator cuff arthropathy Family history of cardiovascular disease Hypertension Malignant tumor of breast Generalized osteoarthritis Hyperlipidemia Rosacea Eczema Surgical History Surgical History Hx of repair of left rotator cuff History of modified radical mastectomy H/O colonoscopy History of total hip replacement Family History Family History Sibling Patient's sister is in good health Acute myocardial infarction Breast cancer Lung cancer A-fib Father Patient's father is Family history of congestive heart failure Hypertension Mother Patient's mother is Daughter Congestive heart failure Breast cancer Social History Social History Smoking status: Never smoker Second hand tobacco smoke exposure: Yes Alcohol intake: former Drinks per week: 2 Substance use: never Substance use type: does not use Other substance usage details: has not had ETOH in past 6 months. takes prescription meds as prescribed. Living arrangements: with family Occupation/Education: retired Gender identity (if verbalized by the patient): Female Spiritual care concerns: No Anes - Eval Final PreProcedure Day of Procedure 12/25/24 11:38 Patient weight: obese Heart: regular rate and rhythm Lungs: clear to auscultation Airway: Mallampati scale class II Neurological: alert and oriented Last oral intake: >/= 8 hours ASA classification: IV Emergent: no Anesthetic plan: proceed Anesthesia type and monitoring: general LMA and standard monitoring Results Review: All pre-operative results and documents have been reviewed as part of the pre- operative evaluation. Informed Consent: The patient's anesthetic plan and its attendant risks and benefits were discussed with the patient/family/POA. Questions were solicited and answers provided to the satisfaction of the patient/family/POA.
[2024-12-25] MEDS: ceFAZolin 2 GM/D5W 50 ML 2 GM/50 ML BAG IVPB (11:53)
[2024-12-25] MEDS: LIDOCAINE 2% JELLY 5 ML TUBE 1 APPLIC MUCOUS MEM (11:55)
--- NOTE | 2024-12-25 12:11 | S_PTH ---
PATIENT: Cr Wadsworth LOC: [facility] U#:[id number] AGE/SX: 79/F ROOM: RE12/25/[address]: Zheng Salazar MD : 1945 BED: DIS: 12/25/2024 SPEC #: [id number] RECD: 12/25/24 12:55 STATUS: ARIE RE #: [id number] RAMANDEEP: 12/25/24 12:[address]: Zheng Salazar DEPT: [facility] Surgical RECD BY: Shelby Dior ENTERED: 12/25/24 12:55 SP TYPE: Surgical OTHR DR: Precious Braun, HUMAN RESOURCES COMPENSATION ANALYST Tissues: A - Bladder Tumor Procedures: Hematoxylin and Eosin Stain Gross and Microscopic Level 4 CK 20
--- NOTE | 2024-12-25 12:16 | W.PM.PROC2 ---
Procedure Note - Detailed Date of Procedure 12/25/24 Pre-op Diagnosis Bladder CA Post-op Diagnosis Same Procedure Performed TURBT, (small, 1.5 cm) Surgeon Zheng Salazar MD Anesthesia MAC Description of Procedure patient is brought to the operative suite where she was prepped draped in routine sterile fashion while in dorsal lithotomy position. 2% xylocaine jelly was introduced intraurethrally and systemic sedation is administered per the anesthesia department. Cystoscopy is undertaken with a 24 F resectoscope. Bladder neck and urethra are endoscopically normal. She has a single orthotopic ureteral orifice bilaterally. The bladder was very carefully inspected and found to have just 1 papillary neoplasm in the right posterior lateral bladder wall, well above the right ureteral orifice. This places was resected in its entirety with attempt made to include detrusor muscle for pathological evaluation of invasion. The base and periphery was cauterized. Again we avoided injury to the ureteral orifices. The resectoscope was removed and a 18F urethral catheter was placed to drainage. patient was taken recovery room in good condition where we will instill gemcitabine. Drains Yes Packing No Pathology Yes Complications No immediate complications Disposition PACU
--- NOTE | 2024-12-25 12:20 | W.PM.PROC2 ---
Procedure Note - Detailed Date of Procedure 12/25/24 Pre-op Diagnosis Bladder CA Post-op Diagnosis Same Procedure Performed Gemcitabine installation Surgeon Zheng Salazar MD Anesthesia None Description of Procedure With the patient in the supine position, a 16F Irwin catheter is placed using sterile technique. Using a protective facemask, gown and double layer of gloves Gemcitabine 2gm in 100cc saline is administered through the catheter/into the bladder. The catheter is then plugged. Patient was instructed to lie supine x20min, then to roll both the left and right x20 min. each. Total dwell time will be 60 min., after which the bladder will be drained and catheter removed. Drains No Packing Yes Pathology None sent Complications No immediate complications Condition Stable
[2024-12-25] MEDS: SODIUM CHLORIDE 0.9% IV 23.7 ML, GEMCITABINE HCL 1,000 MG BLADDER ×2 (12:35)
== END 2024-12-25 14:15 | disposition home or self-care (01) ==
PROVIDERS: PCP Nurse Practitioner Family; Visit Provider Urology
PROC: 0TBB8ZZ Excision of Bladder, Via Natural or Artificial Opening Endoscopic (ICD-10-PCS; CPT 52234; principal; 2024-12-25 12:30)
DX: C67.8 Malignant neoplasm of overlapping sites of bladder (principal); N30.20 Other chronic cystitis without hematuria; E66.9 Obesity, unspecified; Z68.38 Body mass index [BMI] 38.0-38.9, adult
CPT/HCPCS: 52234; 51720; 88305; 88342; J0690; J2003; J2371; J2405; J2704; J7120; J9201

== ENCOUNTER 2025-05-13 09:39 | Outpatient (CLI) | payer MEDICARE, SELFPAY ==
--- NOTE | 2025-05-13 09:56 | ECG_ITS ---
Test Date: 2025-05-13 10:20:16 Measurements Intervals [place] Rate: 73 P: 40 SC: 192 QRS: 18 QRSD: 89 T: 39 QT: 377 QTc: 418 Interpretive Statements SINUS RHYTHM LOW QRS VOLTAGE IN PRECORDIAL LEADS [QRS DEFLECTION < 1.0 mV IN CHEST LEADS] PATTERN CONSISTENT WITH PULMONARY DISEASE NONSPECIFIC T-WAVE ABNORMALITY ABNORMAL ECG Compared to ECG 05/13/2024 11:55:27 T-wave abnormality now present Ventricular premature complex(es) no longer present Electronically Signed On 05-13-2025 17:09:22 PRINCIPAL SOFTWARE ARCHITECT by Jorge Sheldon M.D.
[2025-05-13 10:39] LABS: INR 1.0; Prothrombin Time 12.9 Seconds (11.1-14.7)
[2025-05-13 10:40] LABS: Partial Thromboplastin Time 30.8 Seconds (22.3-36.8)
[2025-05-13 10:55] LABS: Anion Gap 7 mmol/L (4-12); Blood Urea Nitrogen 24 mg/dL (7-17); Calcium 9.3 mg/dL (8.4-10.2); Carbon Dioxide 26 mmol/L (22-30); Chloride 104 mmol/L (98-107); Estimated Glomerular Filt Rate 50; Glucose 107 mg/dL (65-110); Potassium 4.2 mmol/L (3.4-5.0); Sodium 137 mmol/L (137-145)
--- OUTSIDE RECORDS SUMMARY | 2025-05-13 13:03 | XMS_ITS | Clinical Summary ---
Author Organization [facility] Address [address] [phone] Care Team Providers Care Restaurant Shift Supervisor Name Role Phone Rusty Bond MD Unavailable Precious Braun NP Primary Care Provider Allergies Active Allergy Reactions Criticality Noted Date Comments Adhesive Rash Medium Hydromorphone Mental status changes Low 01/23/2023 Sulfa (Sulfonamide Antibiotics) Unknown 06/2017 Medications spironolactone (ALDACTONE) 25 mg tablet Take 0.5 tablets (12.5 mg total) by mouth daily 45 tablet 3 4 Active carvediloL (COREG) 3.125 mg tablet Take 1 tablet (3.125 mg total) by mouth 2 (two) times a day with meals 180 tablet 3 4 Active cholecalcifero l (VITAMIN D-3) 2000 unit tablet daily Active allopurinoL (ZYLOPRIM) 100 mg tablet Take 2 tablets (200 mg total) by mouth daily 180 tablet 3 5 Active ezetimibe (ZETIA) 10 mg tablet Take 1 tablet (10 mg total) by mouth daily 90 tablet 3 5 03/04/20 26 Active sacubitriL-gregory sartan (Entresto) 97-103 mg tablet Take 1 tablet by mouth 2 (two) times a day 180 tablet 3 5 Active apixaban (Eliquis) 5 mg tablet Take 1 tablet (5 mg total) by mouth 2 (two) times a day 180 tablet 3 5 Active atorvastatin (LIPITOR) 80 mg tablet TAKE 1 TABLET BY MOUTH EVERY DAY AT NIGHT 30 tablet 5 Active atorvastatin (LIPITOR) 80 mg tablet Take 1 tablet (80 mg total) by mouth nightly 90 tablet 3 4 05/11/20 25 Discontinued Active Problems Problem Noted Date Diagnosed Date History of bladder cancer 06/30/2024 Assessment & Plan (06/30/2024 9:28 AM CLINIC ASSISTANT): Had surgery in April. She is having surveillance every 3 months with urology in [place] Chronic systolic congestive heart failure 2022 Assessment & Plan (06/30/2024 9:29 AM CLINIC ASSISTANT): Last echo was 65%. Asymptomatic at this time. She continues to follow with Cardiology. Currently on Entresto, Coreg and 12.5 mg spironolactone. Assessment & Plan (12/31/2023 6:17 PM CDT): Chronic. Compensated. Continue spironolactone, Entresto, Coreg Assessment & Plan (05/23/2023 7:12 PM CLINIC ASSISTANT): New diagnosis during hospitalization. LVEF 35-40%. Continue Entresto, spironolactone and carvedilol as tolerated. Due to associated hypotension she is on lower doses in his using midodrine to help support her blood pressure. She has a follow up with Cardiology scheduled her little over a month. Monitor weight and fluid intake. She currently appears compensated History of stroke with residual deficit 05/23/20 23 Assessment & Plan (06/30/2024 9:35 AM CLINIC ASSISTANT): HPI: Right eye and right side cheeks [...] now. Assessment & Plan (05/23/2023 7:33 PM CLINIC ASSISTANT): Patient had recent stroke to the PICA [...] year Assessment & Plan (05/23/2023 7:36 PM CLINIC ASSISTANT): Due to dizziness and balance issues as a residual of the recent stroke. Continue home health for therapy. 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 Last GFR 63. Stable. 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 She continues on allopurinol 200 [...] dispo home with home health pending PT simon 02/12 Doing well in AM, tolerating diet, [...] packing to prior ileostomy site. F/u in [facility] scheduled for post-op check Cultures - [...] 10/02/2022 Assessment & Plan (05/23/2023 7:35 PM CLINIC ASSISTANT): Previous DVT had been provoked by surgery. She had been on the low dose of 2.5 mg twice daily after recent surgery when the stroke occurred. She is now on 5 mg twice daily for suspicion of occult embolic causes of the stroke. There is suspicion she may have occult AFib. She does not have any signs of any umnyn-eh-virz cardiac shunt that could have allowed a [...] stable Assessment & Plan (05/23/2023 7:13 PM CLINIC ASSISTANT): Chronic. She has a history of tophi [...] 05/10/2022 Assessment & Plan (06/30/2024 9:26 AM CLINIC ASSISTANT): Lipid abnormalities are stable, reviewed previous lipid levels in [facility] [place] [place]. Continue statin therapy. Lipitor (atorvastatin) Order for lipid panel was given today to be obtained. Pt voiced understanding of lab drawn and continuation of current medication regimen. Assessment & Plan (12/31/2023 6:15 PM CDT): Chronic. Tolerates atorvastatin 80 mg daily. Continue for risk factor modification. Assessment & Plan (05/23/2023 7:35 PM CLINIC ASSISTANT): Chronic. Now on high-intensity statin given recent [...] helped Assessment & Plan (06/30/2024 9:41 AM CLINIC ASSISTANT): Worsening. Reached out to cardiology they recommended [...] 05/10/2022 Assessment & Plan (06/30/2024 9:26 AM CLINIC ASSISTANT): BMI Follow-up includes: education provided. Assessment & [...] 12/31/2023 Assessment & Plan (05/23/2023 7:34 PM CLINIC ASSISTANT): Acute onset after stroke. Continue current treatment. Keep appointment with ophthalmology. If not improving may benefit from prism lenses Acute CVA (cerebrovascular accident) 04/25/2023 05/23/2023 Dizziness 04/22/2023 12/31/2023 Assessment & Plan (05/23/2023 7:35 PM CLINIC ASSISTANT): Acute onset due to recent posterior circulation stroke. Monitor Pleural effusion 04/22/2023 05/23/2023 Acute urinary retention 04/22/2023 11/2 02/2023 Status post surgery 04/19/2023 12/31/19 24 Arrhythmia [...] & Plan (09/22/2022 1:02 PM CDT): 09/[address] [facility] ins authorization 09/13 Ins denies IPR - peer to peer/appeal performed and lost. director of informatics of ins states she can have PT&OT at SNF and that she does not meet medical complexity requirements for daily evaluation by leather heel breaster --- discussed with both patient and --- SW to provide list of SNF options, CM to provide home healthcare information 09/14 [facility] appealing the rehab denial despite the [facility] losing the peer to peer, SW to refer to SNFs of patient's choosing for backup placement 09/20 meet with SW daily, facilities continue to deny, Appealing pending 09/22 Appeal approved, patient discharged to [place] Edema of left upper extremity 09/11/2022 11/09/2022 [...] while NPO 09/07: pain well controlled with [facility] 09/08: POD 4. NGT replaced. Pain controlled on [facility]. 09/10: POD 6. NPO/NGT. [facility]. Pain controlled. 09/11 POD7, pain controlled, ARBF [...] perforated ulcer rather than diverticulitis. 09/05 OR ([facility]) ex-lap, sigmoidectomy, primary anastomosis, diverting loop [...] (09/04/2022): Added automatically from request for surgery [id number] Osteoarthritis of left glenohumeral joint 08/29/2022 06/30/2024 Overview (08/29/2022): Added automatically from request for surgery [id number] Assessment & Plan (03/12/2023 6:00 PM CDT): [...] (08/03/2022): Added automatically from request for surgery [id number] Assessment & Plan (09/22/2022 12:58 PM CDT): H/o recent L knee replacement ([facility] - 08/30/22) [facility] consults; no [...] Encounters Date Type Department Care Team Description 04/10/2025 Telephone [facility] at [address] [place] [phone] Staci Clark NP 03/04/2025 10:15 AM CDT Office Visit [facility] at [address] [place] [phone] Staci Clark NP Chronic systolic congestive heart failure (HCC) (Primary Dx); Mixed hyperlipidemia; Dyslipidemia 02/25/2025 9:02 AM CDT - 02/25/2025 11:59 PM CDT Hospital Encounter [facility] [address] [place] [address] Chronic systolic congestive heart failure (HCC) Discharge Disposition: Discharge to home or self care 02/25/2025 Results Follow-Up [facility] at [address] [phone] Staci Clark NP Transthoracic Echo (TTE) Complete W Doppler/CF from Last 3 Months Immunizations Immunization Administration Dates Next Due COVID-19 mRNA (Onit) 0.3 m L (30 mcg) vaccine (12 years and up) 03/17/2023 Influenza, Quad, Adjuvantate d, Intramuscular 03/17/2023,03/26/2020 Influenza, Quadrivalent, Hig h Dose, Preservative Free, Intrr 04/24/2022,03/21/2021 Influenza, Trivalent, Adjuva nted, Intramuscular 03/01/2019 Influenza, Trivalent, High D ose, Split, Preservative Free, Intramuscular 03/03/2025,03/07/2024,03/21/2021,03/01,03/01/2018,03/28/2017,03/17/2016 ,03/31/2015,03/15/2014,03/23/2013 Influenza, Trivalent, IM (MDV) 04/24/2022,2019,03/01/2018 Pneumococcal Conjugate PCV 13 07/08/2018 Pneumococcal Polysaccharide PPV23 04/17/2013,12/2007,08/05/2007 RSV Vaccine, Pref, Recombina nt, Subunit, Adjuvanted, PF, IM (Arexvy) 07/10/2023 Tdap 03/16/2018 ZOSTER LIVE 10/09/2006 ZOSTER Recombinant 03/07/2024,07/10/2023 Surgical History Surgery Date Site/Laterality Comments TOTAL HIP ARTHROPLASTY Bilateral right 2007, left 2018 ROTATOR CUFF REPAIR Left right 2019, left 2012 JOINT REPLACEMENT 07/08/2007 Right [facility] BREAST LUMPECTOMY MASTECTOMY 06/25/2000 - 06/24/2001 Right COLONOSCOPY 01/22/2024 CATARACT EXTRACTION COLON SURGERY KNEE ARTHROPLASTY 08/30/2022 Left Medical History Medical History Date Comments Osteoarthritis Hypertension Hypercholesteremia Gout Venous insufficiency CKD (chronic kidney disease) stage 2, GFR 60-89 ml/min Breast cancer ([facility]) Eczema Cataracts, bilateral Peritonitis 09/03/2022 Added automatica lly from request for surgery [id number] Bowel perforation ([facility]) 09/04/2022 CHF (congestive heart failure) ([facility]) Stroke ([facility]) 06/29/2023 affec ting R side Diplopia 05/23/2023 [...] materials from doctor or pharmacy Never 12/28/2022 [facility] Utilities Answer Date Recorded In the past 12 months has th e [employer], gas, oil, or water company threatened to shut off services in your home? No 04/23/2023 Social Connection and Isolation Panel Answer Date Recorded In a typical week, how many times do you talk on the phone with family, friends, or neighbors? More than three times a week 04/23/2023 How often do you get togethe r with friends or relatives? More than three times a week 04/23/2023 How often do you attend chur ch or taoist services? More than 4 times per year 04/23/2023 Do you belong to any clubs o r organizations such as mosque groups, unions, fraternal or athletic groups, or school groups? Yes 04/23/2023 How often do you attend meet ings of the clubs or organizations you belong to? More than 4 times per year 04/23/2023 Are you , , di vorced, , never , or living with a partner? 04/23/2023 AUDIT-C Answer Date Recorded Q1: How often do you have a drink containing alc ohol? Never 09/11/2024 Average Number of Drinks Not on file 025 Frequency of Binge Drinking Not on file 08/24 Overall Financial Resource Strain (CARDIA) Answe r [...] place to sleep or slept in a long term (including now)? No 04/23/2023 Personal Safety Answer [...] Master's degree (e.g., MA, MS, Kelly, MEd, MANAGER STERILE PROCESSING, [employer]) 10/09/2022 Comments No Sex and Gender Information Value Date Recorded Sex Assigned at Not on file Legal Sex Female 3:42 AM CLINIC ASSISTANT Gender Identity Not on file Sexual Orientation Not on file Occupation Industry Job Start Date Job End Date retired Not on file Not on file Not on file Last Filed Vital Signs Vital Sign Reading Time Taken Comments Blood Pressure 140/76 03/04/2025 9:49 AM CDT Pulse 83 03/04/2025 9:49 AM CDT Temperature 36.2 C (97.1 F) 09/11/2024 2:05 PM CDT Respiratory Rate 18 03/04/2025 9:49 AM CDT Oxygen Saturation 98% 03/27/2024 11:30 AM CDT Inhaled Oxygen Concentration - - Weight 106.1 kg (234 lb) 03/04/2025 9:49 AM CDT Height 162.6 cm (5' 4) 03/04/2025 9:49 AM CDT Body Mass Index 40.17 03/04/2025 9:49 AM CDT Plan of Treatment Health Maintenance Due Date Last Done Comments Hepatitis B Screening 02/04/1963 Well Visit 65+ 02/04/2009 Covid-19 Vaccine ( season) 2025 11/10/2024, 03/07/2024, 03/17/2023, Additional history exists Depression Screening 03/27/2025 03/27/2024, 12/31/2023, 04/22/2023, Additional history exists Fall Risk Assessment 03/27/2025 03/27/2024, 01/22/2024, 07/06/2023, Additional history exists Osteoporosis Screening-Bone Density Scan 01/26/2027 01/26/2022 DTaP/Tdap/Td Vaccine (2 - Td or Tdap) 03/16/2028 03/16/2018 Pneumococcal vaccine 65+ Completed 019, 04/17/2013, 11/30/2007, Additional history exists Zoster Vaccine Completed 03/07/2024, 06/25, 10/09/2006 Influenza Vaccine Completed 03/03/2025, , 03/17/2023, Additional history exists Medical Devices Implanted Type Area Trackmobile Operator Device Identifier Shelf Expiration Date Model / Serial / Lot [employer] Aequalis Perform 7mm Reverse Screw Bone Sterile Latex Free [id number] - [id number] - [id number] Implanted:Qty: 1 on 04/19/2023 by Thor Martinez MD at [facility] Nail Left: Shoulder [employer] [id number] 12/16/2027 [id number] / [id number] / Description:Implant pause pe rformed [employer] Stem Perform Sz 2 Plus Humeral Long Dwx2pl - [id number] - [id number] Implanted:Qty: 1 on 04/19/2023 by Thor Martinez MD at [facility] Other - see comments Left: Shoulder [employer] [id number] 02/08/2028 [id number] / [id number] / Description:Implant Pause pe rformed [employer] Insert Perform 10 Deg [id number] [id number] - [id number] - [id number] Implanted:Qty: 1 on 04/19/2023 by Thor Martinez MD at [facility] Other - see comments Left: Shoulder [employer] [id number] 12/23/2026 [id number] / [id number] / Description:Implant Pause pe rformed [employer] Tornier Aequalis Perform 25mm Lateralize Augment Reverse Shoulder [id number] - [id number] - [id number] Implanted:Qty: 1 on 04/19/2023 by Thor Mratinez MD at [facility] Other - see comments Left: Shoulder [employer] [id number] 03/08/2028 [id number] / [id number] / Description:Implant pause pe rformed [employer] Tornier Aequalis Perform Od36 Mm Reverse Shoulder +2 Mm Inferior Offset Sphere Glenoid [id number] - [id number] - [id number] Implanted:Qty: 1 on 04/19/2023 by Thor Martinez MD at [facility] Other - see comments Left: Shoulder [employer] [id number] 08/16/2027 [id number] / [id number] / Description:Implant Pause pe rformed [employer] Aequalis Perform Reversed 5mm 30mm Peripheral Glenoid Screw [id number] - Sna - [id number] Implanted:Qty: 2 on 04/19/2023 by Thor Martinez MD at [facility] Screw Left: Shoulder [employer] [id number] / NA / Description:Implant pause pe rformed [employer] Aequalis Perform Reversed 5mm 22mm Peripheral Glenoid Screw Isz189 - Sna - [id number] Implanted:Qty: 1 on 04/19/2023 by Thor Martinez MD at [facility] Screw Left: Shoulder [employer] [id number] / NA / Description:Implant pause pe rformed Total Joint Bilateral: Hip [employer] Simplex P Full Dose Radiopaque Preblend Cement Bone Tobramycin 6197-9-010 - [id number] Implanted:Qty: 1 on 08/30/2022 by April Fowler MD at [facility] Left: Knee [employer] 01/23/2024 6197-9-010 / / [id number] [employer] Simplex P Full Dose Radiopaque Preblend Cement Bone Tobramycin 6197-9-010 - [id number] Implanted:Qty: 1 on 08/30/2022 by April Fowler MD at [facility] Left: Knee [employer] 01/23/2024 6197-9-010 / / [id number] [employer] [id number] Persona Natural Tibia Stem Knee Left 5d E Baseplate Tibial - [id number] Implanted:Qty: 1 on 08/30/2022 by April Fowler MD at [facility] Left: Knee [employer] [id number] 05/07/2032 [id number] / / [id number] [employer] Persona Cruciate Retain Cemented Knee Left 8 Narrow Component [id number] - [id number] Implanted:Qty: 1 on 08/30/2022 by April Fowler MD at [facility] Left: Knee [employer] [id number] 06/05/2032 [id number] / / [id number] [employer] Persona 12mm Knee Left 8-11 E-F Insert Articular Vivacit-E [id number] - [id number] Implanted:Qty: 1 on 08/30/2022 by April Fowler MD at [facility] Left: Knee [employer] [id number] 08/09/2026 [id number] / / [id number] Procedures Procedure Name Priority Date/Time Associated Diagnosis Comments TRANSTHORACIC ECHO (TTE) COMPLETE W DOPPLER/CF WO CONTRAST Routine 02/25/2025 10:01 AM CDT Chronic systolic congestive heart failure (HCC) DEXA SCAN Routine 01/26/2022 from Last 3 Months or Most Recently Relevant to Health Maintenance Results * TRANSTHORACIC ECHO (TTE) COMPLETE W DOPPLER/CF WO CONTRAST (02/25/2025 10:01 AM CDT) Estimated EF 50-60 % CONS SCIMAGE Anatomical Region Laterality Modality Ultrasound 02/25/2025 9:06 AM CDT Narrative 02/25/2025 12:34 PM CDT [address] [place] [address] Echocardiogram Report Patient Name: KELLY JOHNSON : 1945 Study Date: 02/25/2025 9:06:50 AM Sex: F Tech: NL Ref Provider: STACI CLARK Height(Cm): BSA: Weight(Kg): Quality: Technically Difficult Study Order Provider: STACI CLARK PROCEDURES: Echocardiographic Report: Transthoracic echocardiogram with complete 2D, M-Mode, and color Doppler examination. INDICATIONS: I50.22 Chronic systolic (congestive) heart failure. MEASUREMENTS: 2D/MM Value Range Doppler Value Range EF Teich MM 46.0 % [ 54.0 - 74.0 ] TENA Vmax 1.87 cm2 Estimated EF 50-60 % AV Mean PG 10 mmHg LVIDd MM 5.00 cm [ 3.80 - 5.20 ] AV Peak Alvaro 1.91 m/s [ 1.00 - 1.70 ] LVIDs MM 3.90 cm [ 2.20 - 3.50 ] AV VTI 48.37 cm LVPWd MM 0.90 cm [ 0.60 - 0.90 ] LVOT Diam 2.49 cm IVSd MM 1.00 cm [ 0.60 - 0.90 ] LVOT Peak Alvaro 0.73 m/s [ 0.70 - 1.10 ] LA Dimension MM 3.80 cm [ 2.70 - 3.80 ] LVOT VTI 17.28 cm AoR Diam MM 3.61 cm [ 2.70 - 3.70 ] MV E Peak Alvaro 0.51 m/s [ 0.60 - 1.30 ] MV A Peak Alvaro 0.89 m/s [ 1.00 - 1.20 ] MV Mean PG 2 mmHg MV PHT 51 msec [ 20 - 100 ] MVA 4.30 MV Decel Time 177 msec [ 104 - 258 ] PV Peak Alvaro 0.74 m/s [ 0.40 - 0.80 ] ID Peak Alvaro 0.97 m/s E` 0.05 m/s E/E` 9.68 [ <= 10.00 ] 2D/MM Value Range Doppler Value Range - FINDINGS: Atrial Septum: Normal atrial septum. Left Ventricle: Normal left ventricular systolic function with no focal wall motion abnormalities. Normal left ventricular size. Left ventricular wall thickness upper limits of normal. Impaired diastolic relaxation Grade I. Ejection Fraction is estimated to be 50-60 %. Left Atrium: The left atrium is normal in size. Right Ventricle: Normal right ventricular size. Normal right ventricular systolic function. Right Atrium: The right atrium is normal in size. Aortic Valve: Aortic valve not well visualized. No evidence of hemodynamically significant aortic stenosis by Doppler. Aortic cusps appear mildly sclerotic. Mitral Valve: Mitral valve leaflets appear mildly thickened. Mild mitral annular calcification. Trivial regurgitation of the mitral valve. Pulmonic Valve: Normal structure of the pulmonic valve. Trivial regurgitation in the pulmonic valve. Tricuspid Valve: Normal structure of the tricuspid valve. Normal right ventricular systolic pressure. Trivial regurgitation in the tricuspid valve. Pericardium: Normal pericardium with no significant pericardial effusion. Aorta: Ascending aorta is normal. Ascending Aorta 3.7 cm. There is mild atherosclerosis in the aortic root. IVC: Normal size and normal respiratory collapse consistent with normal right atrial pressure (<5 mmHg). Pulmonary Artery: Pulmonary artery not well visualized. CONCLUSIONS: Normal left ventricular systolic function with no focal wall motion abnormalities. Normal left ventricular size. Left ventricular wall thickness upper limits of normal. Impaired diastolic relaxation Grade I. Ejection Fraction is estimated to be 50-60 %. Normal right ventricular size. Normal right ventricular systolic function. Mitral valve leaflets appear mildly thickened. Mild mitral annular calcification. Trivial regurgitation of the mitral valve. No evidence of hemodynamically significant aortic stenosis by Doppler. Aortic cusps appear mildly sclerotic. Normal structure of the tricuspid valve. Normal right ventricular systolic pressure. Trivial regurgitation in the tricuspid valve. Normal pericardium with no significant pericardial effusion. Electronically Signed By: Samina Baez MD 02/25/2025 12:33:32 PM CDT Procedure Note Samina Baez MD - 02/25/[address] [place] [id number] Echocardiogram Report Patient Name: KELLY JOHNSON : 1945 Study Date: 02/25/2025 9:06:50 AM Sex: F Tech: NL Ref Provider: STACI CLARK Height(Cm): BSA: Weight(Kg): Quality: Technically Difficult Study Order Provider: STACI CLARK PROCEDURES: Echocardiographic Report: Transthoracic echocardiogram with complete 2D, M-Mode, and color Dopplerexamination. INDICATIONS: I50.22 Chronic systolic (congestive) heart failure. MEASUREMENTS: 2D/MM Value Range Doppler ValueRange EF Teich MM 46.0 % [ 54.0 - 74.0 ] TENA Vmax 1.87cm2 Estimated EF 50-60 % AV Mean PG 10mmHg LVIDd MM 5.00 cm [ 3.80 - 5.20 ] AV Peak Alvaro 1.91 m/s[ 1.00 - 1.70 ] LVIDs MM 3.90 cm [ 2.20 - 3.50 ] AV VTI 48.37cm LVPWd MM 0.90 cm [ 0.60 - 0.90 ] LVOT Diam 2.49cm IVSd MM 1.00 cm [ 0.60 - 0.90 ] LVOT Peak Alvaro 0.73 m/s[ 0.70 - 1.10 ] LA Dimension MM 3.80 cm [ 2.70 - 3.80 ] LVOT VTI 17.28cm AoR Diam MM 3.61 cm [ 2.70 - 3.70 ] MV E Peak Alvaro 0.51 m/s[ 0.60 - 1.30 ] MV A Peak Alvaro 0.89 m/s [ 1.00 - 1.20 ] MV Mean PG 2 mmHg MV PHT 51 msec [ 20 - 100 ] MVA 4.30 MV Decel Time 177 msec [ 104 - 258 ] PV Peak Alvaro 0.74 m/s [ 0.40 - 0.80 ] ID Peak Alvaro 0.97 m/s E` 0.05 m/s E/E` 9.68 [ <= 10.00 ] 2D/MM Value Range Doppler ValueRange - FINDINGS: Atrial Septum: Normal atrial septum. Left Ventricle: Normal left ventricular systolic function with no focal wall motionabnormalities. Normal left ventricular size. Left ventricular wall thickness upper limits ofnormal. Impaired diastolic relaxation Grade I. Ejection Fraction is estimated to be 50-60%. Left Atrium: The left atrium is normal in size. Right Ventricle: Normal right ventricular size. Normal right ventricular systolicfunction. Right Atrium: The right atrium is normal in size. Aortic Valve: Aortic valve not well visualized. No evidence of hemodynamicallysignificant aortic stenosis by Doppler. Aortic cusps appear mildly sclerotic. Mitral Valve: Mitral valve leaflets appear mildly thickened. Mild mitral annularcalcification. Trivial regurgitation of the mitral valve. Pulmonic Valve: Normal structure of the pulmonic valve. Trivial regurgitation in thepulmonic valve. Tricuspid Valve: Normal structure of the tricuspid valve. Normal right ventricular systolicpressure. Trivial regurgitation in the tricuspid valve. Pericardium: Normal pericardium with no significant pericardial effusion. Aorta: Ascending aorta is normal. Ascending Aorta 3.7 cm. There is mildatherosclerosis in the aortic root. IVC: Normal size and normal respiratory collapse consistent with normal rightatrial pressure (<5 mmHg). Pulmonary Artery: Pulmonary artery not well visualized. CONCLUSIONS: Normal left ventricular systolic function with no focal wall motionabnormalities. Normal left ventricular size. Left ventricular wall thickness upper limits ofnormal. Impaired diastolic relaxation Grade I. Ejection Fraction is estimated to be 50-60%. Normal right ventricular size. Normal right ventricular systolicfunction. Mitral valve leaflets appear mildly thickened. Mild mitral annularcalcification. Trivial regurgitation of the mitral valve. No evidence of hemodynamically significant aortic stenosis by Doppler.Aortic cusps appear mildly sclerotic. Normal structure of the tricuspid valve. Normal right ventricular systolicpressure. Trivial regurgitation in the tricuspid valve. Normal pericardium with no significant pericardial effusion. Electronically Signed By: Samina Baez MD 02/25/2025 12:33:32 PM CDT Staci Clark NP CV ECHO PROCEDURES Amparo l Result * DEXA SCAN (01/26/2022) Historical Provider HEALTH MAINTENANCE Final Result from Last 3 Months or Most Recently Relevant to Health Maintenance Insurance [facility] MEDICARE Address: [id number] [place] [address] [facility] MEDICARE Address: [address] [address] [place] [address] [facility] MEDICARE ADVANTAGE [facility] MEDICARE Address: [facility] [address] [place] [address] Advance Directives For more information, please contact: [phone] Documents on File Type Date Recorded Patient Mdm Sr Expl anation ADVANCE DIRECTIVE 01/25/2023 12:06 PM Power of Environmental Sampler-Medical * Full Code (Latest Code Status on [...] 1:51 PM 02/14/2023 7:13 PM Care Teams Restaurant Shift Supervisor Relationship Specialty Start Date End Date Precious Braun NP [address] [address] PCP - General Family Medicine 11/07/24 Rusty Bond MD Consulting Physician Urology 04/28/23
--- OUTSIDE RECORDS SUMMARY | 2025-05-13 13:03 | XMS_ITS | Encounter Summary ---
Author Organization [facility] Home [facility] es Address [address] [place] [address] Phone Care Team Providers Care Floorman Name Role Phone Francheska Fuchs MD Primary Care Provider Deepika Clifford MA Unavailable Unavailable Yandy Johnson MD Unavailable [phone] Virgie Sanabria RN Unavailable [phone] Rusty Bond MD Unavailable Precious Braun NP Primary Care Provider [phone] Precious Braun HR ASSISTANT Primary Care Provider [phone] Encounter Details Date Type Department Care Team (Late st Contact Info) Description 10/02/2022 Telephone [facility] [address] [place] [address] Crystal Jean RN Social History Tobacco Use Types Packs/Day Years Used Date Smoking Tobacco: Never Passive Smoke Exposure: Never Smokeless Tobacco: Never Alcohol Use Standard Drinks/Week Comments Yes 0 (1 standard drink = 0.6 oz pur e alcohol) Social Connection and Isolation Panel Answer Date Recorded In a typical week, how many times do you talk on the phone with family, friends, or neighbors? Twice a week 10/03/2022 How often do you get together with friends or re latives? Twice a week 10/03/2022 Attends [employer] Not on file 10/03 Active Member [...] slept in a longterm (including now)? 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 Gender Identity Not on file Sexual Orientation [...] PM CDT documented as of this encounter Functional Status * Delvalle Fall Risk Question Answer Date of Assessment Author History of Falling 0 10/04/2022 8:12 AM CDT Julianna Bailey RN Secondary Diagnosis 15 10/04/2022 8:12 AM Julianna Sánchez RN Ambulatory Aids 15 10/04/2022 8:12 AM DANELLET Julianna Amador RN Intravenous Therapy/Heparin/Saline Lock 20 10/04/2022 8:12 AM Julianna Thurman RN Gait/Transferring 10 10/04/2022 8:12 AM DNAELLET Julianna Bailey RN Mental Status 0 10/04/2022 8:12 AM CDT Julianna Root RN Morse Fall Risk Score (Score >= 45 places fall precaution order) 60 10/04/2022 8:12 AM Julianna Thurman RN Prior Fall Event (Autopopulated from EMR) None found 10/04/2022 8:12 AM CDT Margaret Bailey RN * Arnel Scale Question Answer Date of Assessment Author Sensory Perceptions 4 10/04/2022 8:12 AM Julianna Sánchez RN Moisture 4 10/04/2022 8:12 AM CDT Julianna Todd RN Activity 3 10/04/2022 8:12 AM CDT Julianna Todd, RAYSA Mobility 3 10/04/2022 8:12 AM Julianna Torres RN Nutrition 3 10/04/2022 8:12 AM CDT Julianna Todd RN Friction and Shear 3 10/04/2022 8:12 AM Julianna Thurman RN Arnel Scale Score 20 10/04/2022 8:12 AM DANELLET Julianna Bailey RN * BP Location Answer Date of Assessment Author Left arm 10/05/2022 11:20 AM DANELLET Lindsey Saravia, RAYSA * Question Answer Date of Assessment Author BP Method Automatic 10/04/2022 10:48 AM DANELLET Minerva Rodarte MAP (mmHg) 62 10/04/2022 10:48 AM DANELLET Minerva Rodarte * Fall Risk Interventions Question Answer Date of Assessment Author All Low Fall Interventions Applied Yes 10/04/2022 8:12 AM Julianna Thurman RN All Moderate Fall Interventions Applied Yes 10/04/2022 8:12 AM Julianna Thurman RN All High Fall Risk Interventions Applied Yes 10/04/2022 8:12 AM Julianna Thurman RN Additional Interventions Applied Over-bed table on non-exit side;Exit bed on strong/preferred side 10/04/2022 8:12 AM Julianna Thurman RN Reason For Exception(s) A&O x 4, uses ca ll light 10/02/2022 10:18 PM DANELLET Janice Rose, RAYSA * B.M.A.T. - Bedside Mobility Assessment Tool for Nurses Question Answer Date of Assessment Author Is patient able to participate in the BMAT? Yes 10/04/2022 8:12 AM Margaret Thurman RN BMAT Level Level 3 - Yellow 10/04/2022 8:12 AM Julianna Moreno RN Level 3 Equipment Use assistive device such as cane/walker 10/04/2022 8:12 AM Julianna Thurman RN * Question Answer Date of Assessment Author 1. Has the patient self-reported, presented with clinical signs of, or have a documented history of any of the following within the past 30 days? No 10/04/2022 8:12 AM CDJulianna Joseph RN * Question Answer Date of Assessment Author Is the patient being treated today because it is known or suspected that they prepared, started, or tried to end their life? No 10/02/2022 10:18 PM DANELLET Janice Rose, RAYSA * Question Answer Date of Assessment Author 1. In the past month, have you wished you were or that you could go to sleep and not wake up? No 10/02/2022 10:18 PM Janice Hightower RN 2. In the past month, have you actually had any thoughts of killing yourself? No 10/02/2022 10:18 PM DANELLET Janice Rose RN 6. Have you ever done anything, started to do anything, or prepared to do anything to end your life? No 10/02/2022 10:18 PM Janice Hightower RN * Suicide Risk Level Answer Date of Assessment Author No risk level 10/02/2022 10:18 PM DANELLET Janice Rose RN * Self-Injurious Risk Level Answer Date of Assessment Author No risk level 10/04/2022 8:12 AM CDT Julianna Bailey RN * Alcohol Withdrawal BP Hierarchy Answer Date of Assessment Author 62 10/05/2022 11:20 AM CDT Lindsey Saravia RN * Pressure Injury Prevention Question Answer Date of Assessment Author Pressure Ulcer Prevention Interventions Keep skin clean and dry (Sensory Perception/Moistur e) 10/04/2022 11:30 AM DANELLET Dasha Prince RN 2 Nurse Skin Assessment Janice Jones/ Anne Jones 2022 11:00 PM DANELLET Janice Rose RN * Fall Risk Assessment Tool - MEDFRAT Question Answer Date of Assessment Author Prior Fall Event (Autopopulated from EMR) None found 10/02/2022 10:56 AM Sudheer Aranda NP History of falling in last 3 months, including since admission 0 10/02/2022 10:56 AM Sudheer Aranda NP Confusion or disorientation 0 10/02/2022 10:56 AM Sudheer Aranda NP Intoxicated or sedated 0 10:56 AM Sudheer Aranda NP Impaired gait 0 10/02/2022 10:56 AM Sudheer Aranda NP Mobility assist device used 1 10/02/2022 10:56 AM Sudheer Aranda NP Altered elimination 1 10/02/2022 1 0:56 AM Sudheer Aranda NP Fall risk score: (1-2 low risk), (3-4 moderate risk), (5 or more high risk) 2 10/02/2022 10:56 AM Sudheer Aranda NP Interventions - GENERAL USE as needed patient/family education 10/02/2022 10:56 AM Sudheer Aranda NP Interventions LOW Risk patient/family education 10/02/2022 10:56 AM Sudheer Aranda NP * Integumentary Question Answer Date of Assessment Author Skin Color Appropriate for ethnicity 10/04/2022 8:12 AM Julianna Thurman RN Skin Condition/Temp Warm;Dry 10/04/2022 8 :12 AM Julianna Thurman RN Skin Integrity Surgical incision;Blanchable redness 10/04/2022 8:12 AM Julianna Thurman RN Skin Turgor Non-tenting 10/04/2022 8:12 AM Julianna Thurman RN Integumentary Additional Assessments Yes-Arnel 10/03/2022 8:30 PM DANELLET Merlyn Salamanca RN Integumentary (WDL) X 10/04/2022 8 :12 AM DANELLET Julianna Bailey RN Skin Location surgical incision to left knee and abdomen, redness to bottom, R ileostomy 10/04/2022 8:12 AM DANELLET Julianna Bailey RN * Question Answer Date of Assessment Author RLE Edema +1 10/04/2022 8:12 AM Julianna Torres RN LLE Edema +1 10/04/2022 8:12 AM Julianna Torres RN Edema Right lower extremit y;Left lower extremity 10/04/2022 8:12 AM DANELLET Julianna Bailey RN * BP Location Answer Date of Assessment Author Left arm 10/05/2022 11:20 AM DANELLET Lindsey Saravia RN * Question Answer Date of Assessment Author BP Method Automatic 10/04/2022 10:48 AM CDT Minerva Rodarte * Fall Risk Interventions Question Answer Date of Assessment Author All Low Fall Interventions Applied Yes 10/04/2022 8:12 AM Julianna Thurman RN All Moderate Fall Interventions Applied Yes 10/04/2022 8:12 AM Julianna Thurman RN All High Fall Risk Interventions Applied Yes 10/04/2022 8:12 AM Julianna Thurman RN Additional Interventions Applied Over-bed table on non-exit side;Exit bed on strong/preferred side 10/04/2022 8:12 AM Julianna Thurman RN Reason For Exception(s) A&O x 4, uses ca ll light 10/02/2022 10:18 PM CDT Janice Rose, RAYSA * Question Answer Date of Assessment Author Skin Care Skin cleanser 10/02/2022 11:00 PM CDT Janice Govea, RAYSA Hygiene Gown Changed 10/04/2022 9:12 AM CDT Gordy tMinerva Oral Care Teeth brushed 10/04/2022 9:12 AM CDT Minerva Rodarte Toileting: Assistance with Perineal hygiene;Up to bathroom toilet;Back to bed 10/04/2022 9:12 AM CDT Minerva Rosado Perineal Care Carrie Care 10/04/2022 9:12 AM CDT Minerva Rodarte Bath Not bathed/showered 10/04/2022 8:12 AM Julianna Sánchez RN * ADL Screening Question Answer Date of Assessment Author Patient's Vision Adequate to Safely Complete Daily Activities Yes 10/02/2022 10:18 PM DANELLET Janice Rose RN Patient's Judgement Adequate to Safely Complete Daily Activities Yes 10/02/2022 10:18 PM Donna Hightower RN Patient's Memory Adequate to Safely Complete Daily Activities Yes 10/02/2022 10:18 PM Janice Hightower RN Patient Able to Express Needs/Desires Yes 10/02/2022 10:18 PM Janice Hightower RN Dressing Independent 10/02/2022 10:18 PM Janice Greene RN Grooming Independent 10/02/2022 10:18 PM Janice Greene RN Feeding Independent 10/02/2022 10:18 PM Janice Greene RN Bathing Independent 10/02/2022 10:18 PM Janice Greene RN Toileting Independent 10/02/2022 10:18 PM Janice Greene RN In/Out Bed Independent 10/02/2022 10:18 PM Janice Greene RN Walks in Home Independent 10/02/2022 10:18 PM Janice Vera RN Weakness of Legs None 10/02/2022 10:18 PM Janice Hightower RN Weakness of Arms/Hands None 10/02/2022 10:18 P M Janice Hightower RN Hearing - Right Ear Functional 10/02/2022 10:18 PM Janice Nieto RN Hearing - Left Ear Functional 10/02/2022 10:18 PM Janice Pedraza RN Dominant hand? Right 10/02/2022 10:18 PM Janice Berrios Si, RN Decline in ADLs in last 2 weeks? Yes (Comment) 10/02/2022 10:18 PM Janice Hightower RN * Therapy Consults Question Answer Date of Assessment Author PT Evaluation Needed 2 10/02/2022 10:18 PM Janice Hightower RN OT Evaluation Needed 2 10/02/2022 10:18 PM Janice Hightower, RAYSA FOUNDRY PATTERNMAKER Evaluation Needed 2 10/02/2022 10:18 PM Janice Hightower RN * Assistive Devices Question Answer Date of Assessment Author Assistive Devices/DME Walker 10/02/2022 10:18 PM CDT Janice Rose RN * Nutrition Question Answer Date of Assessment Author Percent Meal Eaten (%) 25 10/04/2022 8:12 AM CDT Julianna Bailey RN Feeding Level of Assistance Able to feed self 10/04/2022 8:12 AM DANELLET Julianna Bailey RN Appetite Fair 10/04/2022 8:12 AM CDT Julianna Todd RN documented as of this encounter Mental Status * Question Answer Entry Date Author Level of Consciousness Alert;Awake 8:30 PM DANELLET Merlyn Salamanca RN Orientation Oriented X4 (person, place, time, situation) 10/03/2022 8:30 PM CDT Merlyn Salamanca RN * Question Answer Entry Date Author Neuro (WDL) WDL 10/04/2022 8:12 AM CDT Julianna Todd RN Other Neuro Symptoms Forgetful 10/03/2022 8:50 AM Edna Manuel RN documented in this encounter Plan of Treatment Not on file documented as of this encounter Visit Diagnoses Not on filedocumented in this encounter Additional Health Concerns Infection Onset Date Last Indicated Resolved Time COVID: Suspected 10/31/2022 10/31/2022 10/31/2022 3:44 AM CDT documented as of this encounter Care Teams Floorman Relationship Specialty Start Date End Date Francheska Fuchs MD PCP - General Family Practice 05/10/22 03/26/24 Precious Braun NP [address] [place] [address] [address] [place] [address] PCP - General Family Medicine 03/27/24 11/06/24 Precious Braun NP [facility] [address] [place] [address] PCP - General Family Medicine 11/07/24 Deepika Clifford MA [address] [place] [address] [address] [place] [address] ACO Care Truck Driver Helper 10/05/22 10/06/22 Yandy Johnson MD [address] [place] [address] [address] [place] [address] Consulting Physician Gastroenterology 11/02/22 03/25/23 Virgie Sanabria RN [address] [place] [address] [address] [place] [address] Lace Machine Operator 02/15/23 03/14/23 Rusty Bond MD [address] [place] [address] [address] [place] [address] Consulting Physician Urology 04/28/23 documented as of this encounter
== END 2025-05-13 09:40 | disposition home or self-care (01) ==
LOC: ANHSURGERY 09:43
PROVIDERS: Anesthesiology; Visit Provider Urology
DX: I50.42 Chronic combined systolic (congestive) and diastolic (congestive) heart failure (principal); I12.9 Hypertensive chronic kidney disease with stage 1 through stage 4 chronic kidney disease, or unspecified chronic kidney disease; N18.30 Chronic kidney disease, stage 3 unspecified
CPT/HCPCS: 36415; 80048; 85610; 85730; 93005

== ENCOUNTER 2025-05-15 02:00 | Day surgery (SDC) | payer MEDICARE, SELFPAY ==
[2025-05-12 13:22] VITALS: BMI 39.3
--- NOTE | 2025-05-12 13:36 | PC.NURSE ---
[facility] has started construction of its new state of the art ER which will open Spring 2026. With this, we anticipate parking may be a challenge for some our surgical patients and families. Parking spaces are limited but are available for all Surgical, obstetrics, and ER patients sharing this lot. If you arrive and find you are having a hard time finding a parking space, please note that we understand the challenges, please drive around the hospital and park near Hospital Entrance 1. When you enter this entrance, you can ask a volunteer to direct or take you back to the surgical waiting area to check in. We appreciate everyone?s understanding of these expected challenges while we build for your future. Report to the Outpatient Waiting Room, entrance under the green pavilion located off [address], at time _11:00am on date __05/15/25 . Planned Procedure Time: _1:00pm .? Time changes happen often and if your time is changed the preop area will call you the afternoon before. - You and your visitor will be asked to self-screen and do not enter if you have any COVID symptoms. Please call surgeon if you need to reschedule. - A mask is optional within the hospital at this time. Patients may have clear liquids (water, carbonated beverages, clear teas, apple juice) until 3 hours prior to surgery with a maximum of 20 ounces. - No food from midnight until time of surgery and no smoking, or chewing tobacco (or any form of nicotine). No chewing gum, candy or mints. (1000am) Take only the following medications with a SIP of water on the morning of surgery: Coreg DO NOT STOP ANY OF YOUR OTHER PRESCRIPTION MEDICATIONS PRIOR TO SURGERY EXCEPT THE FOLLOWING Hold all vitamins and supplements for 3 days per anesthesiologist. Date of last dose 05/07/25 Medications to discontinue per physician ____HOLD Eliquis till after surgery per Dr Salazar. Date to take last dose____05/11/25 Please no make-up, nail croatian, hairspray, perfume, deodorant, or body powder the day of surgery.? No jewelry (including any body piercings) or valuables the day of surgery, leave them at home.? Please take a shower or bath the night before, or the morning of, surgery with an antibacterial soap.? Wear comfortable, loose fitting clothing.? Children are encouraged to wear pajamas. - Jewelry must be removed prior to entering the operating room.? Rings and piercings that are not removed may be cut off. - The hospital will not accept responsibility for valuables.? - Please leave all valuables, including medications, at home the day of surgery. If you are going home after surgery, a licensed driver manager must drive you home.? - NO public transportation without another adult if you receive anesthesia. - We recommend that an adult stay with you for 24 hours following discharge. - We also recommend that you do not drive, make important decision, drink alcoholic beverages, or take any drugs that were not prescribed by your health care provider for at least 24 hours after your discharge time. Follow any additional instructions given to you from your surgeon. Telephone instructions given to __Patient and asked if any additional questions and then verbalized understanding. Patient advised to call surgeon office or pre surgery nurse liaison [phone] if any additional questions.
[2025-05-15] VITALS (8 sets, daily range): BP systolic 102–173; BP diastolic 58–95; PULSE 66–77; RESP 12–16; TEMP 36.4–36.6; O2SAT 96–100
--- OUTSIDE RECORDS SUMMARY | 2025-05-15 02:04 | XMS_ITS | Clinical Summary ---
Author Organization [facility] Address [address] [id number] Care Team Providers Care Scouring Machine Operator Name Role Phone Rusty Bond MD Unavailable Precious Braun NP Primary Care Provider [phone] Allergies Active Allergy Reactions Criticality Noted Date [...] 06/30/2024 Assessment & Plan (06/30/2024 9:28 AM TITLE ASSISTANT): Had surgery in April. She is having surveillance every 3 months with urology in [place] Chronic systolic congestive heart failure 2022 Assessment & Plan (06/30/2024 9:29 AM TITLE ASSISTANT): Last echo was 65%. Asymptomatic at this time. She continues to follow with Cardiology. Currently on Entresto, Coreg and 12.5 mg spironolactone. Assessment & Plan (12/31/2023 6:17 PM CDT): Chronic. Compensated. Continue spironolactone, Entresto, Coreg Assessment & Plan (05/23/2023 7:12 PM TITLE ASSISTANT): New diagnosis during hospitalization. LVEF 35-40%. [...] 23 Assessment & Plan (06/30/2024 9:35 AM TITLE ASSISTANT): HPI: Right eye and right side [...] now. Assessment & Plan (05/23/2023 7:33 PM TITLE ASSISTANT): Patient had recent stroke to the [...] year Assessment & Plan (05/23/2023 7:36 PM TITLE ASSISTANT): Due to dizziness and balance issues as a residual of the recent stroke. Continue home health for therapy. May benefit from going to the day [place] for intensive treatment roasterman current use of anticoagulant Assessment & Plan [...] defer Assessment & Plan (05/23/2023 7:36 PM TITLE ASSISTANT): Patient has a history of prior [...] 04/17/2023 Assessment & Plan (06/30/2024 9:18 AM TITLE ASSISTANT): Due for lab work. Last GFR 63. Stable. 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 She continues on allopurinol [...] to prior ileostomy site. F/u in [facility] scheduled for post-op check Cultures - none [...] 10/02/2022 Assessment & Plan (05/23/2023 7:35 PM TITLE ASSISTANT): Previous DVT had been provoked by surgery. She had been on the low dose of 2.5 mg twice daily after recent surgery when the stroke occurred. She is now on 5 mg twice daily for suspicion of occult embolic causes of the stroke. There is suspicion she may have occult AFib. She does not have any signs of any tumse-zo-zmka cardiac shunt that could have allowed a [...] stable Assessment & Plan (05/23/2023 7:13 PM TITLE ASSISTANT): Chronic. She has a history of [...] 05/10/2022 Assessment & Plan (06/30/2024 9:26 AM TITLE ASSISTANT): Lipid abnormalities are stable, reviewed previous lipid levels in [facility]. Continue statin therapy. Lipitor (atorvastatin) Order for lipid panel was given today to be obtained. Pt voiced understanding of lab drawn and continuation of current medication regimen. Assessment & Plan (12/31/2023 6:15 PM CDT): Chronic. Tolerates atorvastatin 80 mg daily. Continue for risk factor modification. Assessment & Plan (05/23/2023 7:35 PM TITLE ASSISTANT): Chronic. Now on high-intensity statin given [...] helped Assessment & Plan (06/30/2024 9:41 AM TITLE ASSISTANT): Worsening. Reached out to cardiology they [...] 05/10/2022 Assessment & Plan (06/30/2024 9:26 AM TITLE ASSISTANT): BMI Follow-up includes: education provided. Assessment [...] 12/31/2023 Assessment & Plan (05/23/2023 7:34 PM TITLE ASSISTANT): Acute onset after stroke. Continue current treatment. Keep appointment with ophthalmology. If not improving may benefit from prism lenses Acute CVA (cerebrovascular accident) 04/25/2023 05/23/2023 Dizziness 04/22/2023 12/31/2023 Assessment & Plan (05/23/2023 7:35 PM TITLE ASSISTANT): Acute onset due to recent posterior [...] & Plan (09/22/2022 1:02 PM CDT): [facility] Ins denies [facility]PR - peer to peer/appeal performed and lost. director of federal sales of ins states she can have PT&OT at SNF and that she does not meet medical complexity requirements for daily evaluation by assignment officer --- discussed with both patient and --- SW to provide list of SNF options, CM to provide home healthcare information 09/14 [facility] appealing the rehab denial despite the [facility] losing the peer to peer, SW to refer to SNFs of patient's choosing for backup placement 09/20 meet with SW daily, facilities continue to deny, Appealing pending 09/22 Appeal approved, patient discharged to [place] Edema of left upper extremity 09/11/2022 11/09/2022 [...] while NPO 09/07: pain well controlled with BALLAST CLEANING OPERATOR 09/08: POD 4. NGT replaced. Pain controlled on BALLAST CLEANING OPERATOR. 09/10: POD 6. NPO/NGT. BALLAST CLEANING OPERATOR. Pain controlled. 09/11 POD7, pain controlled, ARBF [...] perforated ulcer rather than diverticulitis. 09/05 OR ([facility]) ex-lap, sigmoidectomy, primary anastomosis, diverting loop [...] (09/04/2022): Added automatically from request for surgery [id number] Osteoarthritis of left glenohumeral joint 08/29/2022 06/30/2024 Overview (08/29/2022): Added automatically from request for surgery [id number] Assessment & Plan (03/12/2023 6:00 PM CDT): [...] (08/03/2022): Added automatically from request for surgery [id number] Assessment & Plan (09/22/2022 12:58 PM CDT): H/o recent L knee replacement ([facility] Jan[facility] - 08/30/22) [facility] consults; [...] Type Department Care Team Description 04/10/2025 Telephone [employer] Sales[employer] at [address] [place] [phone] Staci Clark NP 03/04/2025 10:15 AM CDT Office Visit [employer] Sales[employer] at [address] [place] [phone] Staci Clark NP Chronic systolic congestive heart failure (HCC) (Primary Dx); Mixed hyperlipidemia; Dyslipidemia 02/25/2025 9:02 AM CDT - 02/25/2025 11:59 PM CDT Hospital Encounter [facility] [address] [place] [address] Chronic systolic congestive heart failure (HCC) Discharge Disposition: Discharge to home or self care 02/25/2025 Results Follow-Up [employer] Sales[employer] at [address] [phone] Staci Clark NP Transthoracic Echo (TTE) Complete W Doppler/CF from Last 3 Months Immunizations Immunization Administration Dates Next Due COVID-19 mRNA (GateMe) 0.3 m L (30 mcg) vaccine (12 [...] left 2012 JOINT REPLACEMENT 07/08/2007 Right [facility] BREAST LUMPECTOMY MASTECTOMY 06/25/2000 - 06/24/2001 Right COLONOSCOPY 01/22/2024 CATARACT EXTRACTION COLON SURGERY KNEE ARTHROPLASTY 08/30/2022 Left Medical History Medical History Date Comments Osteoarthritis Hypertension Hypercholesteremia Gout Venous insufficiency CKD (chronic kidney disease) stage 2, GFR 60-89 ml/min Breast cancer ([facility]) Eczema Cataracts, bilateral Peritonitis 09/03/2022 Added automatica lly from request for surgery [id number] Bowel perforation ([facility]) 09/04/2022 CHF (congestive heart failure) ([facility]) Stroke ([facility]) 06/29/2023 affec ting R side [...] the past 12 months has th e [employer], gas, oil, or water company threatened to [...] often do you attend chur ch or catholic services? More than 4 times per year 04/23/2023 Do you belong to any clubs o r organizations such as gnosticism groups, unions, fraternal or athletic groups, or [...] Master's degree (e.g., MA, MS, Kelly, MEd, E COMMERCE WEB DEVELOPER, ARMANI) 10/09/2022 Comments No Sex and Gender Information Value Date Recorded Sex Assigned at Not on file Legal Sex Female 3:42 AM TITLE ASSISTANT Gender Identity Not on file Sexual [...] history exists Medical Devices Implanted Type Area Director Validation Device Identifier Shelf Expiration Date Model / Serial / Lot [employer] Aequalis Perform 7mm Reverse Screw Bone Sterile Latex Free [id number] - [id number] - [id number] Implanted:Qty: 1 on 04/19/2023 by Thor Martinez MD at [facility] Nail Left: Shoulder [employer] [id number] 12/16/2027 [id number] / [id number] / Description:Implant pause pe rformed [employer] Stem Perform Sz 2 Plus Humeral Long Dwx2pl - [id number] - [id number] Implanted:Qty: 1 on 04/19/2023 by Thor Martinez MD at [facility] Other - see comments Left: Shoulder [employer] [id number] 02/08/2028 [id number] / [id number] / Description:Implant Pause pe rformed [employer] Insert Perform 10 Deg [id number] - [id number] - [id number] Implanted:Qty: 1 on 04/19/2023 by Thor Martinez MD at [facility] Other - see comments Left: Shoulder [employer] [id number] 12/23/2026 [id number] / [id number] / Description:Implant Pause pe rformed [employer] Tornier Aequalis Perform 25mm Lateralize Augment Reverse Shoulder Lvo077 - [id number] - [id number] Implanted:Qty: 1 on 04/19/2023 by Thor Martinez MD at [facility] Other - see comments Left: Shoulder [employer] [id number] 03/08/2028 [id number] / [id number] / Description:Implant pause pe rformed [employer] Tornier Aequalis Perform Od36 Mm Reverse Shoulder +2 Mm Inferior Offset Sphere Glenoid [id number] - [id number] - [id number] Implanted:Qty: 1 on 04/19/2023 by Thor Martinez MD at [facility] Other - see comments Left: Shoulder [employer] [id number] 08/16/2027 [id number] / [id number] / Description:Implant Pause pe rformed [employer] Aequalis Perform Reversed 5mm 30mm Peripheral Glenoid Screw Axj985 - Sna - [id number] Implanted:Qty: 2 on 04/19/2023 by Thor Martinez MD at [facility] Screw Left: Shoulder [employer] [id number] / NA / Description:Implant pause pe rformed [employer] Aequalis Perform Reversed 5mm 22mm Peripheral Glenoid Screw Omq039 - Sna - [id number] Implanted:Qty: 1 on 04/19/2023 by Thor Martinez MD at [facility] Screw Left: Shoulder [employer] [id number] / NA / Description:Implant pause pe rformed Total Joint Bilateral: Hip [employer] Simplex P Full Dose Radiopaque Preblend Cement Bone Tobramycin 6197-9-010 - [id number] Implanted:Qty: 1 on 08/30/2022 by April Fowler MD at [facility] Left: Knee [employer] 01/23/2024 6197-9-010 / / [id number] [employer] Simplex P Full Dose Radiopaque Preblend Cement Bone Tobramycin 6197-9-010 - [id number] Implanted:Qty: 1 on 08/30/2022 by April Fowler MD at [facility] Left: Knee [employer] 01/23/2024 6197-9-010 / / [id number] [employer] [id number] Persona Natural Tibia Stem Knee Left 5d E Baseplate Tibial - [id number] Implanted:Qty: 1 on 08/30/2022 by April Fowler MD at [facility] Left: Knee [employer] [id number] 05/07/2032 [id number] / / [id number] [employer] Persona Cruciate Retain Cemented Knee Left 8 Narrow Component [id number] - [id number] Implanted:Qty: 1 on 08/30/2022 by April Fowler MD at [facility] Left: Knee [employer] [id number] 06/05/2032 [id number] / / [id number] [employer] Persona 12mm Knee Left 8-11 E-F Insert Articular Vivacit-E [id number] - [id number] Implanted:Qty: 1 on 08/30/2022 by April Fowler MD at [facility] Left: Knee [employer] [id number] 08/09/2026 [id number] / / [id number] Procedures Procedure Name Priority Date/Time Associated Diagnosis [...] AM CDT Narrative 02/25/2025 12:34 PM CDT [address] [place] [address] Echocardiogram Report Patient Name: KELLY JOHNSON : [...] 0.74 m/s [ 0.40 - 0.80 ] SC Peak Alvaro 0.97 m/s E` 0.05 m/s [...] Procedure Note Samina Baez MD - 02/25/[address] [place] [address] Echocardiogram Report Patient Name: KELLY JOHNSON : [...] 0.74 m/s [ 0.40 - 0.80 ] SC Peak Alvaro 0.97 m/s E` 0.05 m/s [...] Most Recently Relevant to Health Maintenance Insurance [facility] MEDICARE ADVANTAGE Advance Directives For more information, please contact: [phone] Documents on File Type Date Recorded Patient Refining Supervisor Expl anation ADVANCE DIRECTIVE 01/25/2023 12:06 PM Power of Rad Technologist-Medical * Full Code (Latest Code Status on [...] 1:51 PM 02/14/2023 7:13 PM Care Teams Scouring Machine Operator Relationship Specialty Start Date End Date Precious Braun NP [address] [address] PCP - General Family Medicine 11/07/24 Rusty Bond MD Consulting Physician Urology 04/28/23
--- OUTSIDE RECORDS SUMMARY | 2025-05-15 02:04 | XMS_ITS | Encounter Summary ---
Author Organization [facility] Address [address] [place] [address] Phone Care Team Providers Care Retail Wireless Associate Name Role Phone Farncheska Fuchs MD Primary Care Provider Deepika Clifford MA Unavailable Unavailable Yandy Johnson MD Unavailable [phone] Virgie Sanabria RN Unavailable Rusty Bond MD Unavailable Precious Braun NP Primary Care Provider [phone] Precious Braun PARAEDUCATOR Primary Care Provider [phone] Encounter Details Date Type Department Care Team (Late st Contact Info) Description 10/02/2022 Telephone [facility] [address] [place] [address] Crystal Jean RN Social History Tobacco Use [...] re latives? Twice a week 10/03/2022 Attends [employer] Not on file 10/03 Active Member [...] place to sleep or slept in a residential (including now)? 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 Gender Identity Not on file Sexual Orientation [...] Thurman RN Gait/Transferring 10 10/04/2022 8:12 AM DANELLET Julianna Bailey RN Mental Status 0 10/04/2022 [...] 2 10/02/2022 10:18 PM Janice Hightower, RAYSA REVIEW TRAINER Evaluation Needed 2 10/02/2022 10:18 PM Janice [...] documented as of this encounter Care Teams Retail Wireless Associate Relationship Specialty Start Date End Date Francheska Fuchs MD PCP - General Family Practice 05/10/22 03/26/24 Precious Braun NP [address] [place] [address] [address] [place] [address] PCP - General Family Medicine 03/27/24 11/06/24 Precious Braun NP [facility] [address] [place] [address] PCP - General Family Medicine 11/07/24 Deepika Clifford MA [address] [place] [address] [address] [place] [address] ACO Care Deoiling Machine Operator 10/05/22 10/06/22 Yandy Johnson MD [address] [place] [address] [address] [place] [address] Consulting Physician Gastroenterology 11/02/22 03/25/23 Virgie Sanabria RN [address] [place] [address] [address] [place] [address] Conservation Specialist 02/15/23 03/14/23 Rusty Bond MD [address] [place] [address] [address] [place] [address] Consulting Physician Urology 04/28/23 documented as of this encounter
--- NOTE | 2025-05-15 08:44 | WPDHPUPDATE1 ---
History and Physical Update Update Date/Time: 05/15/25 08:44 History and Physical has been reviewed, including an updated exam of the patient. There are NO changes in the patient's condition. Risks, benefits, and alternatives have been discussed and questions answered. Patient agrees to proceed with procedure.
--- NOTE | 2025-05-15 12:07 | WPDANESEPPF ---
Anes - Initial Pre Proc Eval Procedure: Operation Date: 05/15/25 12:30 Proposed Procedures p Transurethral Resection Bladder Tumor with Gemcitabine Instillation - Zheng Salazar MD Date/Time: 05/15/25 12:07 Surgeon: Zheng Salazar MD Pre Op Diagnosis: bladder mass Patient Data Age: 80 Gender: F Height: 1.63 m Weight: 104 kg Allergies Allergy/AdvReac Type Severity Reaction Status Date / Time adhesive tape Allergy Mild SORES Verified 05/15/25 11:43 Sulfa (Sulfonamide Allergy Mild RASH, Verified 05/15/25 11:43 Antibiotics) ITCHING sulfanilamide Allergy Mild Rash Verified 05/15/25 11:43 Home Medications ?Medication ?Instructions ?Recorded ?Confirmed ?Type atorvastatin 80 mg PO HS #30 tabs 05/15/23 05/12/25 Rx spironolactone 25 mg tablet 12.5 mg (1/2 x 25 mg) PO DAILY #30 05/15/23 05/12/25 Rx tabs allopurinol 100 mg tablet 100 mg PO BID 05/12/24 05/12/25 History apixaban 5 mg tablet (Eliquis) 5 mg PO BID 05/12/24 05/15/25 History Held on 12/25/24. Instructions: Resume on 12/27/24. carvedilol 3.125 mg PO BID 05/12/24 05/15/25 History cholecalciferol (vitamin D3) 25 25 mcg PO DAILY 12/22/24 05/12/25 History mcg (1,000 unit) capsule sacubitril 97 mg-valsartan 103 mg 1 tablet PO BID 12/22/24 05/12/25 History tablet (Entresto) ezetimibe 10 mg tablet 10 mg PO .PM 05/12/25 05/12/25 History Patient hx anesthesia problems: none Family hx anesthesia problems: none Results Review: All pre-operative results and documents have been reviewed as part of the pre-operative evaluation. [facility] Past Medical History Medical History Gout DJD of AC (acromioclavicular) joint Right shoulder pain Vitamin B12 deficiency Vitamin D deficiency, unspecified Rotator cuff arthropathy Family history of cardiovascular disease Hypertension Malignant tumor of breast Generalized osteoarthritis Hyperlipidemia Rosacea Eczema Surgical History Surgical History Hx of repair of left rotator cuff History of modified radical mastectomy H/O colonoscopy History of total hip replacement Family History Family History Sibling Patient's sister is in good health Acute myocardial infarction Breast cancer Lung cancer A-fib Father Patient's father is Family history of congestive heart failure Hypertension Mother Patient's mother is Daughter Congestive heart failure Breast cancer Social History Social History Smoking status: Never smoker Second hand tobacco smoke exposure: No Alcohol intake: current Drinks per week: 2 Alcohol use details: 1 per every 6 mos Substance use: never Substance use type: does not use Other substance usage details: has not had ETOH in past 6 months. takes prescription meds as prescribed. Living arrangements: with family Additional living arrangements comments: Occupation/Education: retired Gender identity (if verbalized by the patient): Female Spiritual care concerns: No Anes - Eval Final PreProcedure Day of Procedure 05/15/25 12:07 Patient weight: morbidly obese Heart: regular rate and rhythm Lungs: clear to auscultation Airway: Mallampati scale class II Neurological: alert and oriented Last oral intake: >/= 8 hours ASA classification: IV Emergent: no Anesthetic plan: proceed Anesthesia type and monitoring: general LMA and standard monitoring Results Review: All pre-operative results and documents have been reviewed as part of the pre-operative evaluation. Informed Consent: The patient's anesthetic plan and its attendant risks and benefits were discussed with the patient/family/POA. Questions were solicited and answers provided to the satisfaction of the patient/family/POA.
[2025-05-15] MEDS: ceFAZolin 2 GM in SODIUM CHLORIDE 0.9% IV 50 ML 100 ML IVPB (12:13)
--- NOTE | 2025-05-15 12:34 | W.PM.PROC2 ---
Procedure Note - Detailed Date of Procedure 05/15/25 Pre-op Diagnosis Bladder tumor Post-op Diagnosis Same Procedure Performed TURBT (small, 2 cm) Surgeon Zheng Salazar MD Anesthesia General Description of Procedure The patient was brought to the operative suite where she is prepped and draped in a routine sterile fashion while in the dorsal lithotomy position. This is done after the uneventful administration of general LMA anesthetic. 2% Xylocaine jelly is introduced intraurethrally and allowed to stand for an appropriate period of time. A 24F resectoscope sheath was placed in the bladder and the bladder is circumferentially inspected carefully. 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 This area is resected in its entirety with an attempt made to include detrusor muscle for pathological evaluation of invasion. The base and periphery of this resected side is cauterized with a loop electrode. The bladder is emptied and the resectoscope was removed. The patient is taken to the recovery room having tolerated this procedure well. Pathology Yes Complications No immediate complications Disposition PACU
[2025-05-15] MEDS: LACTATED RINGERS 1,000 ML 30 ML IV CONT (12:35)
--- NOTE | 2025-05-15 12:35 | S_PTH ---
PATIENT: Cr Wadsworth LOC: [facility] U#:[id number] AGE/SX: 80/F ROOM: RE05/15/[address]: Zheng Salazar MD : 1945 BED: DIS: 05/15/2025 SPEC #: [id number] RECD: 05/15/25 12:54 STATUS: ARIE REQ #: [id number] RAMANDEEP: 05/15/25 12:[address]: Zheng Salazar DEPT: [facility] Surgical RECD BY: Shelby Dior ENTERED: 05/15/25 12:55 SP TYPE: Surgical OTHR DR: SAMPLE MAKER HAND PHYSICIAN Tissues: A - Bladder Tumor Procedures: Hematoxylin and Eosin Stain Gross and Microscopic Level 4
--- NOTE | 2025-05-15 12:35 | W.PM.PROC2 ---
Procedure Note - Detailed Date of Procedure 05/15/25 Pre-op Diagnosis Bladder tumor Post-op Diagnosis Same Procedure Performed Gemcitabine installation Surgeon Zheng Salazar MD Anesthesia None Description of Procedure With the patient in the supine position, a 16F Irwin catheter is placed using sterile technique. Using a protective facemask, gown and double layer of gloves Gemcitabine 2gm in 100cc saline is administered through the catheter/into the bladder. The catheter is then plugged. Patient was instructed to lie supine x20min, then to roll both the left and right x20 min. each. Total dwell time will be 60 min., after which the bladder will be drained and catheter removed.
[2025-05-15] MEDS: SODIUM CHLORIDE 0.9% IV 23.7 ML, GEMCITABINE HCL 1,000 MG BLADDER ×2 (12:46)
[2025-05-15] MEDS: fentaNYL CITRATE INJ (*CRX) 100 MCG/2 ML VIAL 25 MCG IV PUSH ×3 (13:34→13:42)
--- NOTE | 2025-05-15 14:00 | SUR.PHASEI ---
Patient's bladder drained. 240ml of saline instilled into patient's bladder. Irwin catheter removed. Patient taken to outpatient recovery.
== END 2025-05-15 14:30 | disposition home or self-care (01) ==
PROVIDERS: Visit Provider Urology
PROC: 0TBB8ZZ Excision of Bladder, Via Natural or Artificial Opening Endoscopic (ICD-10-PCS; CPT 52234; principal; 2025-05-15 12:30)
DX: N32.89 Other specified disorders of bladder (principal); C67.2 Malignant neoplasm of lateral wall of bladder; E78.5 Hyperlipidemia, unspecified; E55.9 Vitamin D deficiency, unspecified; I10 Essential (primary) hypertension; M10.9 Gout, unspecified; M19.019 Primary osteoarthritis, unspecified shoulder; E53.8 Deficiency of other specified B group vitamins; L71.9 Rosacea, unspecified; L30.9 Dermatitis, unspecified; E66.01 Morbid (severe) obesity due to excess calories; Z68.39 Body mass index [BMI] 39.0-39.9, adult; Z79.891 Long term (current) use of opiate analgesic; Z79.01 Long term (current) use of anticoagulants; Z79.84 Long term (current) use of oral hypoglycemic drugs; Z98.890 Other specified postprocedural states; Z85.3 Personal history of malignant neoplasm of breast; Z80.3 Family history of malignant neoplasm of breast; Z80.1 Family history of malignant neoplasm of trachea, bronchus and lung; Z82.49 Family history of ischemic heart disease and other diseases of the circulatory system
CPT/HCPCS: 52234; 51720; 88305; J0690; J2003; J2704; J3010; J7120; J9201